=== PATIENT | male | born 1975 | race American Indian/Alaskan Native ===

== ENCOUNTER → 2016-05-27 | Outpatient (CLI) | payer BC ==
[~2016-05-27] MED LIST: /CELE20CA PO; BUPIVACAINE HCL 0.25% 10 ML VIAL As Ordered ONE; BUPIVACAINE HCL 0.25% 30 ML VIAL As Ordered ONE; CHAN0.5P6 PO; CHAN1PAK11 PO; ETOD40ERTA PO; EXAL8TAB PO; FENT25PA TD; FLEX10TA2 PO; FLEXARIL PO; GABA300C2 PO; HYDR5TAB23 PO; IBUP80TA PO; LYRI75CA PO; MORP-38 PO; MORP15TA2 PO; MULTCAP11 PO; MULTTAB6 PO; NAPR500T2 PO; NEXI40CA PO; PERC7.5T12 PO; PRIL40CA PO; ROBA750T4 PO; SOMA350T PO; TIZA2CAP3 PO; TRIAMCINOLONE ACETONIDE SUSP 40 MG/ML VIAL (J3301) As Ordered ONE; VITA-121 PO; VITA50003 PO; VOLT1GEL2 TD; ZANA4CAP PO; diazePAM 5 MG TAB As Ordered ONE; hydroxycut PO; oxycodone IR PO
--- NOTE | 2016-06-04 02:04 | ECWPNPC ---
PATIENT NAME: JOSUE MARTINEZ : 1975 GENDER: MALE VISIT DATE: 05/27/2016 DISCHARGE DATE: 05/27/16 1647 VISIT LOCKED DATE TIME: PHYSICIAN: DREW AGUILAR RESOURCE: DREW AGUILAR REASON FOR APPOINTMENT 1. TPI HISTORY OF PRESENT ILLNESS HISTORY OF PRESENT ILLNESS: PAIN THE PATIENT DESCRIBES THE PAIN... FALL RISK SCREENING: SCREENING :NO FALLS IN THE PAST YEAR CURRENT MEDICATIONS TAKING MENS MULTIVITAMIN PLUS TABLET 1 TAB ORALLY DAILY, NOTES: 05-26-16899 TAKING VOLTAREN 1 % GEL 1 TAB(S) EXTERNALLY DAILY, NEEDED, NOTES: 899 TAKING REMICADE 100 MG SOLUTION RECONSTITUTED INTRAVENOUS EVERY 8 WEEKS, NOTES: 04-21-2016 TAKING AIRBORNE TABLET EFFERVESCENT ORALLY ONCE DAILY, NOTES: 05-26-2016 TAKING DEXILANT 60 MG CAPSULE DELAYED RELEASE 1 CAPSULE ORALLY ONCE A DAY, NOTES: 05-25-20162099 TAKING DRISDOL [id number] CAPSULE 1 CAP(S) ORALLY EVERY OTHER WEEK, NOTES: 05-15-162099 TAKING FERROUS SULFATE 325 (65 FE) MG TABLET 1 TABLET ORALLY ONCE A DAY, NOTES: 05-26-2016899 TAKING BENADRYL ALLERGY 25 MG TABLET 1 TABLET ORALLY EVERY 6 HRS NEEDED, NOTES: 05-06-20162099 TAKING MIRALAX - PACKET 1 PACKET MIXED WITH 8 OUNCES OF FLUID ORALLY ONCE A DAY, NOTES: 05-12-20162099 TAKING SOMA 350 MG TABLET 1 TABLET NEEDED ORALLY BEFORE BEDTIME MDD=1, NOTES: 05-26-2016899 TAKING CAPSAICIN 0.1 % CREAM 1 APPLICATION TO AFFECTED AREA NEEDED EXTERNALLY THREE TIMES A DAY TAKING PROZAC 20 MG CAPSULE 1 CAPSULE IN THE MORNING ORALLY ONCE A DAY, NOTES: 05-25-2016899 TAKING VITAMIN D (ERGOCALCIFEROL) 02668 CAPSULE TAKE 1 CAPSULE BY MOUTH EVERY OTHER WEEK TAKING MORPHINE SULFATE 15 MG TABLET 1-2 TABLET ORALLY EVERY 4 -6 HRS PRN PAIN MDD=4, NOTES: 05-26-20162099 MEDICATION LIST REVIEWED AND RECONCILED WITH THE PATIENT PAST MEDICAL HISTORY CHRONIC LOW BACK PAIN (INJURED AT WORK) - SUMMER 2009 GERD, 03/05 EGD IRREG Z LINE, REINDL VIT D DEF FE DEF ANEMIA FORMER SMOKER, QUIT 01/02, SMOKED 18 Y, 1/2 PPD ANKYLOSING SPONDYLITIS - DR SOUZA DX 03/05 02/03 CT CHEST 8.5 MM CAVITARY LESION(LIKELY ABSCESS) 04/05 - PER PULM NO FURTHER IMAGING REQUIRED ALLERGIES N.K.D.A. REVIEW OF SYSTEMS CONSTITUTIONAL: ANY CHANGE IN YOUR MEDICAL CONDITION? NO . CHILLS NO . FEVER NO . INFECTION: DO YOU HAVE NEW INFECTIONS? NO . DO YOU HAVE HISTORY OF MRSA? NO . MUSCULOSKELETAL: ANY NEW PATTERNS OF PAIN OR NUMBNESS? NO . GASTROENTEROLOGY: ANY NEW CHANGE IN BOWEL CONTROL? NO . GENITOURINARY: ANY NEW CHANGE IN BLADDER CONTROL? NO . IS THERE A CHANCE YOU COULD BE ? NO . HEMATOLOGY/LYMPH: DO YOU TAKE ANY BLOOD THINNERS? (FOR EXAMPLE- COUMADIN, PLAVIX, AGGRENOX, PLATEL, PRADAXA, OR XARELTO) NO . WHEN WAS YOUR LAST DOSE? DATE: TIME: . NEUROLOGY: HAVE YOU FALLEN IN THE PAST 6 MONTHS? NO . ANY NEW EXTREMITY NUMBNESS OR WEAKNESS? NO . CARDIOLOGY: DO YOU HAVE A PACEMAKER OR DEFIBRILLATOR? NO . RESPIRATORY: HAVE YOU BEEN SICK IN THE PAST WEEK? NO . FEVER NO . FLU LIKE SYMPTOMS? NO . COUGH NO . INTEGUMENTARY: DO YOU HAVE ANY RASHES OR OPEN SORES? NO . ALLERGIC/IMMUNO: ARE YOU ALLERGIC TO SHELLFISH OR IV DYE? NO . ANY NEW ALLERGIES? NO . PSYCHIATRIC: DO YOU HAVE THOUGHTS OF HURTING YOURSELF OR SOMEONE ELSE? NO . ARE YOU ABUSED, NEGLECTED, OR IN AN UNSAFE ENVIRONMENT? NO . ENDOCRINOLOGY: ARE YOU DIABETIC? NO . OTHER: DO YOU NEED ANY PRESCRIPTIONS? NO . IF YES, PLEASE LIST: ____ . ANY NEW PROBLEMS WITH YOUR MEDICATIONS? NO . WHEN DID YOU LAST EAT? 0220 . WHEN DID YOU LAST DRINK? 1200 . WHAT DID YOU LAST DRINK? BLACK COFFEE . NAME OF PERSON DRIVING YOU HOME? - SONALI MARTINEZ . DO YOU HAVE ANY OTHER QUESTIONS OR CONCERNS NO . REVIEWED BY: PROVIDER: . VITAL SIGNS WT 172 LBS, HT 62 IN, BMI 31.46 INDEX, BP 131/60 MM HG, HR 66 /MIN, RR 16 /MIN, TEMP 97.2 F, OXYGEN SAT % 96, NA INITIALS TL 1452, REVIEWED BY: KG. ASSESSMENTS MYALGIA - M79.1 (PRIMARY) PROCEDURES PN TRIGGER POINT INJECTION WITH STEROIDS PRE PROCEDURE DIAGNOSIS 1. MYALGIA 2. PAIN AT BILATERAL NECK AREA AND LEFT LOW BACK AREA. POST PROCEDURE DIAGNOSIS 1. MYALGIA 2. PAIN AT BILATERAL NECK AREA AND LEFT LOW BACK AREA. PROCEDURE TRIGGER POINT INJECTION AT BILATERAL NECK AREA AND LEFT LOW BACK AREA. SURGEON DR. DREW AGUILAR HAND PROFILER NONE ANESTHESIA LOCAL PRE PROCEDURE NOTE THE PATIENT HAS A HISTORY OF CHRONIC PAIN AT THE RIGHT AND LEFT NECK AREA AND LEFT LOW BACK AREA. I EVALUATE THE PATIENT AND REVIEWED THE CHART. THERE IS EVIDENCE OF BANDS OF TISSUE WITH RESTRICTION OF MOVEMENT AND PRESENCE OF TRIGGER POINT AT THE AFFECTED AREA. I WENT OVER THE RISKS, ALTERNATIVES, AND BENEFITS ASSOCIATED WITH THIS PROCEDURE. THE PATIENT WOULD LIKE TO PROCEED AND GIVE CONSENT TO PERFORMED THE PROCEDURE. THE PATIENT DENIES UNEXPLAINABLE WEIGHT LOSS, FEVER, CHILLS, OR NEW CHANGES IN URINARY OR BOWEL CONTROL DESCRIPTION OF PROCEDURE THE PATIENT WAS BROUGHT TO THE PROCEDURE ROOM AND PLACED IN THE SITTING POSITION. THE AREA WAS CLEANED WITH ALCOHOL. THE PROCEDURE WAS DONE USING ASEPTIC STERILE TECHNIQUE. I CHECKED LATERALITY AND THE LEVEL WHERE THE PROCEDURE WAS GOING TO BE PERFORMED WITH THE PATIENT AND THE SUPPORTING STAFF AT THE MOMENT OF THE TIME OUT IN THE PROCEDURE ROOM. USING A 25-GAUGE NEEDLE, TRIGGER POINTS WERE INJECTED AT THE RIGHT AND LEFT NECK AREA AND LEFT LOW BACK AREA WITH A TOTAL OF 40 ML OF BUPIVACAINE 0.25% AND KENALOG 40 MG. THERE WAS NO EVIDENCE OF BLOOD, PARESTHESIA OR CEREBROSPINAL FLUID DURING THE PROCEDURE. THE PATIENT WAS SENT TO THE RECOVERY ROOM. THE PATIENT WAS MOVING THE EXTREMITIES AND DOING WELL. THERE WAS NO COMPLICATION DURING THE PROCEDURE POST PROCEDURE NOTE THE PATIENT WILL BE SEEN IN A FOLLOW UP IN THE NEXT FEW WEEKS. INSTRUCTIONS WERE GIVEN, QUESTIONS WERE ANSWERED, AND THE PATIENT EXPRESSED UNDERSTANDING AND AGREES WITH THE PLAN. PROCEDURE CODES 37647 INJECT TRIGGER POINTS, =/> 3 FOLLOW UP 3 WEEKS ELECTRONICALLY SIGNED BY DREW AGUILAR MD ON 06/03/2016 AT 03:25 PM EST DISCLAIMER : THIS IS A VISIT SUMMARY EXTRACTED FROM THE [employer] CHART. IT IS NOT A COPY OF THE [employer] PROGRESS NOTE. JANEL
== END ==
LOC: M PAIN 14:40
PROVIDERS: ATTEND Anesthesiology
DX: G89.21 Chronic pain due to trauma (principal); M79.1 Myalgia; M54.2 Cervicalgia; M54.5 Low back pain; K21.9 Gastro-esophageal reflux disease without esophagitis; E55.9 Vitamin D deficiency, unspecified; D50.9 Iron deficiency anemia, unspecified; M45.9 Ankylosing spondylitis of unspecified sites in spine; Z79.891 Long term (current) use of opiate analgesic; Z79.899 Other long term (current) drug therapy; Z87.891 Personal history of nicotine dependence
CPT/HCPCS: 20553; J3301

== ENCOUNTER → 2016-06-10 | Outpatient (CLI) | payer BC ==
[~2016-06-10] MED LIST changes: -BUPIVACAINE HCL 0.25% 10 ML VIAL As Ordered ONE; -BUPIVACAINE HCL 0.25% 30 ML VIAL As Ordered ONE; -TRIAMCINOLONE ACETONIDE SUSP 40 MG/ML VIAL (J3301) As Ordered ONE; -diazePAM 5 MG TAB As Ordered ONE
== END ==
LOC: M PAIN 11:00
PROVIDERS: ATTEND Nurse Practitioner Family
DX: M79.1 Myalgia (principal); M45.9 Ankylosing spondylitis of unspecified sites in spine; G89.29 Other chronic pain; Z79.891 Long term (current) use of opiate analgesic; Z79.899 Other long term (current) drug therapy; Z87.891 Personal history of nicotine dependence

== ENCOUNTER 2016-07-18 13:00 | Outpatient (RCR) | payer BC | END 2016-07-19 | LOC: M PT 13:00 | PROVIDERS: ATTEND Physician Assistant | DX: Z51.89 Encounter for other specified aftercare (principal); M54.12 Radiculopathy, cervical region; M54.9 Dorsalgia, unspecified ==

== ENCOUNTER → 2016-07-19 | Outpatient (CLI) | payer BC ==
--- NOTE | 2016-07-20 01:15 | ECWPNPC ---
PATIENT NAME: JOSUE MARTINEZ : 1975 GENDER: MALE VISIT DATE: 07/19/2016 DISCHARGE DATE: 07/19/16 1007 VISIT LOCKED DATE TIME: PHYSICIAN: TOM SALINAS RESOURCE: TOM SALINAS REASON FOR APPOINTMENT 1. NECK AND LOW BACK HISTORY OF PRESENT ILLNESS HISTORY OF PRESENT ILLNESS: PAIN THE PATIENT DESCRIBES THE PAIN... FALL RISK SCREENING: SCREENING :NO FALLS IN THE PAST YEAR TODAY'S VISIT: NOTES: RATES PAIN TODAY 6/10. PAIN IS CENTERD AT BASE OF NECK, PAIN IS CENTERED AT NECK AND LEFT LOW BACK. HAS BEEN DOING PT FOR NECK WHICH IS IMPROVING ROM BUT STILL HAS PAIN. . CURRENT MEDICATIONS TAKING MENS MULTIVITAMIN PLUS TABLET 1 TAB ORALLY DAILY TAKING VOLTAREN 1 % GEL 1 TAB(S) EXTERNALLY DAILY, NEEDED TAKING REMICADE 100 MG SOLUTION RECONSTITUTED INTRAVENOUS EVERY 8 WEEKS TAKING AIRBORNE TABLET EFFERVESCENT ORALLY ONCE DAILY TAKING DEXILANT 60 MG CAPSULE DELAYED RELEASE 1 CAPSULE ORALLY ONCE A DAY TAKING FERROUS SULFATE 325 (65 FE) MG TABLET 1 TABLET ORALLY ONCE A DAY TAKING BENADRYL ALLERGY 25 MG TABLET 1 TABLET ORALLY EVERY 6 HRS NEEDED TAKING MIRALAX - PACKET 1 PACKET MIXED WITH 8 OUNCES OF FLUID ORALLY ONCE A DAY TAKING CAPSAICIN 0.1 % CREAM 1 APPLICATION TO AFFECTED AREA NEEDED EXTERNALLY THREE TIMES A DAY TAKING VITAMIN D (ERGOCALCIFEROL) 73400 CAPSULE TAKE 1 CAPSULE BY MOUTH EVERY OTHER WEEK TAKING PROZAC 20 MG CAPSULE 2 CAPSULE IN THE MORNING ORALLY ONCE A DAY TAKING SOMA 350 MG TABLET 1 TABLET NEEDED ORALLY BEFORE BEDTIME MDD=1 TAKING MORPHINE SULFATE 15 MG TABLET 1-2 TABLET ORALLY EVERY 4 -6 HRS PRN PAIN MDD=4 TAKING ZANTAC 150 MG TABLET 1 TABLET AT BEDTIME ORALLY ONCE A DAY TAKING COLACE 100 MG CAPSULE 1 CAPSULE NEEDED ORALLY TWICE A DAY NOT-TAKING DRISDOL [id number] CAPSULE 1 CAP(S) ORALLY EVERY OTHER WEEK MEDICATION LIST REVIEWED AND RECONCILED WITH THE PATIENT PAST MEDICAL HISTORY CHRONIC LOW BACK PAIN (INJURED AT WORK) - SUMMER 2009 GERD, 03/05 EGD IRREG Z LINE, REINDL VIT D DEF FE DEF ANEMIA FORMER SMOKER, QUIT 01/02, SMOKED 18 Y, 1/2 PPD ANKYLOSING SPONDYLITIS - DR SOUZA DX 03/05 02/03 CT CHEST 8.5 MM CAVITARY LESION(LIKELY ABSCESS) 04/05 - PER PULM NO FURTHER IMAGING REQUIRED ALLERGIES N.K.D.A. SOCIAL HISTORY GENERAL: TOBACCO USE ARE YOU A:NONSMOKER LEARNING BARRIERS / SPECIAL NEEDS ORIENTED TO PLAN OF CARE: PATIENT, PAIN MANAGEMENT PATIENT, ORIENTED TO PLAN OF CARE: PATIENT, PAIN MANAGEMENT PATIENT. NEW PATIENT PAIN DIARY TODAY'S VISITNOTES FROM 0-10, WHAT LEVEL IS YOUR PAIN TODAY?0 PAIN CLINIC PFS, CLERGY, PUBLIC HEALTH REFERRALS PFS REFERRAL NEEDED?NO CLERGY REFERRAL NEEDED?NO PUBLIC HEALTH REFERRAL NEEDED?NO WAS THE PROVIDER NOTIFIED OF ANY PERTINENT INFO?NO PFS REFERRAL NEEDED?NO CLERGY REFERRAL NEEDED?NO PUBLIC HEALTH REFERRAL NEEDED?NO WAS THE PROVIDER NOTIFIED OF ANY PERTINENT INFO?NO REVIEW OF SYSTEMS CONSTITUTIONAL: ANY CHANGE IN YOUR MEDICAL CONDITION? NO . CHILLS NO . FEVER NO . INFECTION: DO YOU HAVE NEW INFECTIONS? NO . DO YOU HAVE HISTORY OF MRSA? NO . MUSCULOSKELETAL: ANY NEW PATTERNS OF PAIN OR NUMBNESS? NO . GASTROENTEROLOGY: ANY NEW CHANGE IN BOWEL CONTROL? NO . GENITOURINARY: ANY NEW CHANGE IN BLADDER CONTROL? NO . IS THERE A CHANCE YOU COULD BE ? NO . HEMATOLOGY/LYMPH: DO YOU TAKE ANY BLOOD THINNERS? (FOR EXAMPLE- COUMADIN, PLAVIX, AGGRENOX, PLATEL, PRADAXA, OR XARELTO) NO . WHEN WAS YOUR LAST DOSE? DATE: TIME: . NEUROLOGY: HAVE YOU FALLEN IN THE PAST 6 MONTHS? NO . ANY NEW EXTREMITY NUMBNESS OR WEAKNESS? NO . CARDIOLOGY: DO YOU HAVE A PACEMAKER OR DEFIBRILLATOR? NO . RESPIRATORY: HAVE YOU BEEN SICK IN THE PAST WEEK? NO . FEVER NO . FLU LIKE SYMPTOMS? NO . COUGH NO . INTEGUMENTARY: DO YOU HAVE ANY RASHES OR OPEN SORES? NO . ALLERGIC/IMMUNO: ARE YOU ALLERGIC TO SHELLFISH OR IV DYE? NO . ANY NEW ALLERGIES? NO . PSYCHIATRIC: DO YOU HAVE THOUGHTS OF HURTING YOURSELF OR SOMEONE ELSE? NO . ARE YOU ABUSED, NEGLECTED, OR IN AN UNSAFE ENVIRONMENT? NO . ENDOCRINOLOGY: ARE YOU DIABETIC? NO . OTHER: DO YOU NEED ANY PRESCRIPTIONS? YES . IF YES, PLEASE LIST: MORPHINE 15 MG . ANY NEW PROBLEMS WITH YOUR MEDICATIONS? NO . WHEN DID YOU LAST EAT? ____ . WHEN DID YOU LAST DRINK? ____ . WHAT DID YOU LAST DRINK? ____ . NAME OF PERSON DRIVING YOU HOME? ____ . DO YOU HAVE ANY OTHER QUESTIONS OR CONCERNS NO . REVIEWED BY: PROVIDER: TOM JOLLY . VITAL SIGNS WT 165.6 LBS, HT 62 IN, BMI 30.29 INDEX, BP 146/87 MM HG, HR 62 /MIN, RR 16 /MIN, TEMP 96.8 F, OXYGEN SAT % 97, NA INITIALS TL 0908, REVIEWED BY: CS. EXAMINATION GENERAL EXAMINATION: GENERAL APPEARANCE:NO ACUTE DISTRESS, WELL NOURISHED AND HYDRATED, PLEASANT. LUNGS:CLEAR TO AUSCULTATION BILATERALLY, NO WHEEZES, RHONCHI, RALES. HEART:NO MURMURS, REGULAR RATE AND RHYTHM. MUSCULOSKELETAL:HEAD IN HEAD-FORWARD POSITION. POINT TENDERNESS OVER CERICAL PARAVEREBRAL MUSCLES. NECK STIFF, PAIN WITH NECK EXTENSION, ROTATION. , TRIGGER POINTS AND TIGHTFIBROUS BANDS NOTED L>R AT CERVICAL THORACIC JUNCTION. FOOD SERVICES COORDINATOR STRENGTH EQUAL AND STRONG. : CER. ASSESSMENTS MYALGIA - M79.1 (PRIMARY) FACET ARTHROPATHY, CERVICAL - M12.88 ANKYLOSING SPONDYLITIS - M45.9 CHRONIC PRESCRIPTION OPIATE USE - Z79.891 TREATMENT MYALGIA CERVICAL FACET JOINT TOM GREENWOOD 07/19/2016 9:52:27 AM > BILATERAL THERAPEUTIC NOTES: CONTINUE PT, STRETCHES AND EXERCISES. CONTINUE CURRENT MEDS,FACET JOINT INJECTION MATERIAL WAS PRINTED,FACET JOINT INJECTION: YOUR EXPERIENCE MATERIAL WAS PRINTED. CLINICAL NOTES: ISTOP REGISTRY REVIEWED AND DEMNOSTRATES COMPLLIANCE. BRINGS IN MEDICATIONS WHICH IS APPROPRIATE FOR WHAT WAS DISPENSED. RECENT URINE TOXICOLOGY REVIEWED. NO UNAUTHORIZED MEDICATIONS. NO ILLICIT SUBSTANCES AND PRESCRIBED MEDICATIONS WERE PRESENT. PROCEDURE CODES FA211 ESTABILISHED PATIENT [facility] CHARGE DISPOSITION & COMMUNICATION FOLLOW UP SCHEDULE INJECTION ABOUT 08/02 (ON REMICADE) (REASON: CHECK AUTH FOR CERVICAL FACET BLOCK BILATERAL THERAPEUTIC) ELECTRONICALLY SIGNED BY ILIA REAGAN ON 07/19/2016 AT 10:53 AM EST DISCLAIMER : THIS IS A VISIT SUMMARY EXTRACTED FROM THE [employer] CHART. IT IS NOT A COPY OF THE [employer] PROGRESS NOTE. JANEL
== END ==
LOC: M PAIN 09:00
PROVIDERS: ATTEND Nurse Practitioner Family
DX: Z09 Encounter for follow-up examination after completed treatment for conditions other than malignant neoplasm (principal); G89.29 Other chronic pain; M79.1 Myalgia; M12.88 Other specific arthropathies, not elsewhere classified, other specified site; M45.9 Ankylosing spondylitis of unspecified sites in spine; M54.5 Low back pain; K21.9 Gastro-esophageal reflux disease without esophagitis; E55.9 Vitamin D deficiency, unspecified; D50.9 Iron deficiency anemia, unspecified; Z79.891 Long term (current) use of opiate analgesic; Z79.899 Other long term (current) drug therapy; Z87.891 Personal history of nicotine dependence

== ENCOUNTER 2016-08-17 07:29 | Outpatient (RCR) | payer BC | END 2016-08-19 | LOC: M PT 07:29 | PROVIDERS: ATTEND Physician Assistant | DX: Z51.89 Encounter for other specified aftercare (principal); M54.12 Radiculopathy, cervical region ==

== ENCOUNTER → 2016-09-27 | Outpatient (CLI) | payer BC ==
[~2016-09-27] MED LIST changes: +AIRB1TAB PO; +BUPIVACAINE HCL 0.25% 30 ML VIAL As Ordered ONE; +CARI350T20 PO; +COLA50CA5 PO; +DEXI60CA PO; +FLUO20CA9 PO; +INFL10VL IV; +IRON65TA PO; +ISOVUE-M 300 61% 15ML VIAL (Q9967) As Ordered ONE; +LIDOCAINE 1% SDV INJ 30 ML VIAL As Ordered ONE; +META800T82 PO; +MIRA33504 PO; +QUET1TAB8 PO; +RANI300T PO; +TRAZ100T4 PO; +TRIAMCINOLONE ACETONIDE SUSP 40 MG/ML VIAL (J3301) As Ordered ONE; +VITA10006 PO; +VOLT1GEL24 TD; +diazePAM 5 MG TAB As Ordered ONE; +oxyCODONE 5MG TAB As Ordered ONE
--- NOTE | 2016-09-27 16:07 | REP ---
Partial cervical spine series: Single view: History: Facet block for pain. 15 seconds of fluoroscopy time is reported. Findings: A sequence of two fluoroscopically obtained intraprocedural spot radiographs of the cervical spine document various needle positions and contrast injections associated with facet injection procedure. Signed by Raghav Ludwig MD 09/27/2016 04:41 P
--- NOTE | 2016-10-04 02:59 | ECWPNPC ---
PATIENT NAME: JOSUE MARTINEZ : 1975 GENDER: MALE VISIT DATE: 09/27/2016 DISCHARGE DATE: 09/27/16 1031 VISIT LOCKED DATE TIME: PHYSICIAN: DREW AGUILAR RESOURCE: DREW AGUILAR REASON FOR APPOINTMENT 1. CE- BILATERAL HISTORY OF PRESENT ILLNESS HISTORY OF PRESENT ILLNESS: PAIN THE PATIENT DESCRIBES THE PAIN... FALL RISK SCREENING: SCREENING :NO FALLS IN THE PAST YEAR CURRENT MEDICATIONS TAKING MENS MULTIVITAMIN PLUS TABLET 1 TAB ORALLY DAILY, NOTES: 09-26-16799 TAKING VOLTAREN 1 % GEL 1 TAB(S) EXTERNALLY DAILY, NEEDED, NOTES: NONE RECENT TAKING REMICADE 100 MG SOLUTION RECONSTITUTED INTRAVENOUS EVERY 8 WEEKS, NOTES: JULY 2016 TAKING AIRBORNE TABLET EFFERVESCENT ORALLY ONCE DAILY, NOTES: 09-26-169799 TAKING DEXILANT 60 MG CAPSULE DELAYED RELEASE 1 CAPSULE ORALLY ONCE A DAY, NOTES: 09-26-16799 TAKING FERROUS SULFATE 325 (65 FE) MG TABLET 1 TABLET ORALLY ONCE A DAY, NOTES: 09-26-16799 TAKING BENADRYL ALLERGY 25 MG TABLET 1 TABLET ORALLY EVERY 6 HRS NEEDED, NOTES: NONE TAKING MIRALAX - PACKET 1 PACKET MIXED WITH 8 OUNCES OF FLUID ORALLY ONCE A DAY, NOTES: 09-25-16 TAKING CAPSAICIN 0.1 % CREAM 1 APPLICATION TO AFFECTED AREA NEEDED EXTERNALLY THREE TIMES A DAY, NOTES: NONE RECENT TAKING ZANTAC 150 MG TABLET 1 TABLET AT BEDTIME ORALLY ONCE A DAY, NOTES: 09-26-162099 TAKING COLACE 100 MG CAPSULE 1 CAPSULE NEEDED ORALLY TWICE A DAY, NOTES: 09-26-162099 TAKING PROZAC 20 MG CAPSULE 3 CAPSULE IN THE MORNING ORALLY ONCE A DAY, NOTES: 09-27-16 07 TAKING VITAMIN D (ERGOCALCIFEROL) 28916 CAPSULE 1 CAPSULE ORALLY WEEKLY, NOTES: DUE TODAY TAKING SOMA 350 MG TABLET 1 TABLET NEEDED ORALLY BEFORE BEDTIME MDD=1, NOTES: NONE RECENT TAKING MORPHINE SULFATE 15 MG TABLET 1-2 TABLET ORALLY EVERY 4 -6 HRS PRN PAIN MDD=4, NOTES: 09-26-162099 TAKING TRAZODONE HCL 150 MG TABLET 1 TABLET AT BEDTIME NEEDED ORALLY ONCE A DAY, NOTES: 09-26-162099 DISCONTINUED DRISDOL [id number] CAPSULE 1 CAP(S) ORALLY EVERY OTHER WEEK MEDICATION LIST REVIEWED AND RECONCILED WITH THE PATIENT PAST MEDICAL HISTORY CHRONIC LOW BACK PAIN (INJURED AT WORK) - SUMMER 2009 GERD, 03/05 EGD IRREG Z LINE, REINDL VIT D DEF FE DEF ANEMIA FORMER SMOKER, QUIT 01/02, SMOKED 18 Y, 1/2 PPD ANKYLOSING SPONDYLITIS - DR SOUZA DX 03/05 02/03 CT CHEST 8.5 MM CAVITARY LESION(LIKELY ABSCESS) 04/05 - PER PULM NO FURTHER IMAGING REQUIRED ALLERGIES N.K.D.A. REVIEW OF SYSTEMS CONSTITUTIONAL: ANY CHANGE IN YOUR MEDICAL CONDITION? NO . CHILLS NO . FEVER NO . INFECTION: DO YOU HAVE NEW INFECTIONS? NO . DO YOU HAVE HISTORY OF MRSA? NO . MUSCULOSKELETAL: ANY NEW PATTERNS OF PAIN OR NUMBNESS? NO . GASTROENTEROLOGY: ANY NEW CHANGE IN BOWEL CONTROL? NO . GENITOURINARY: ANY NEW CHANGE IN BLADDER CONTROL? NO . IS THERE A CHANCE YOU COULD BE ? NO . HEMATOLOGY/LYMPH: DO YOU TAKE ANY BLOOD THINNERS? (FOR EXAMPLE- COUMADIN, PLAVIX, AGGRENOX, PLATEL, PRADAXA, OR XARELTO) NO . WHEN WAS YOUR LAST DOSE? DATE: TIME: . NEUROLOGY: HAVE YOU FALLEN IN THE PAST 6 MONTHS? NO . ANY NEW EXTREMITY NUMBNESS OR WEAKNESS? NO . CARDIOLOGY: DO YOU HAVE A PACEMAKER OR DEFIBRILLATOR? NO . RESPIRATORY: HAVE YOU BEEN SICK IN THE PAST WEEK? NO . FEVER NO . FLU LIKE SYMPTOMS? NO . COUGH NO . INTEGUMENTARY: DO YOU HAVE ANY RASHES OR OPEN SORES? NO . ALLERGIC/IMMUNO: ARE YOU ALLERGIC TO SHELLFISH OR IV DYE? NO . ANY NEW ALLERGIES? NO . PSYCHIATRIC: DO YOU HAVE THOUGHTS OF HURTING YOURSELF OR SOMEONE ELSE? NO . ARE YOU ABUSED, NEGLECTED, OR IN AN UNSAFE ENVIRONMENT? NO . ENDOCRINOLOGY: ARE YOU DIABETIC? NO . OTHER: DO YOU NEED ANY PRESCRIPTIONS? NO . IF YES, PLEASE LIST: ____ . ANY NEW PROBLEMS WITH YOUR MEDICATIONS? NO . WHEN DID YOU LAST EAT? 09-27-16 0140 . WHEN DID YOU LAST DRINK? 09-27-16 0430 . WHAT DID YOU LAST DRINK? WATER . NAME OF PERSON DRIVING YOU HOME? SONALI . DO YOU HAVE ANY OTHER QUESTIONS OR CONCERNS NO . REVIEWED BY: PROVIDER: . VITAL SIGNS WT 168 LBS, HT 62 IN, BMI 30.72 INDEX, BP 111/59 MM HG, HR 66 /MIN, RR 16 /MIN, TEMP 97.9 F, OXYGEN SAT % 96%, NA INITIALS SC09:06, REVIEWED BY: CM. ASSESSMENTS SPONDYLOSIS WITHOUT MYELOPATHY OR RADICULOPATHY, CERVICAL REGION - M47.812 (PRIMARY) PROCEDURES PN CERVICAL FACET BLOCK LOW BILATERAL CERVICAL PRE PROCEDURE DIAGNOSIS CERVICAL SPONDYLOSIS POST PROCEDURE DIAGNOSIS CERVICAL SPONDYLOSIS PROCEDURE BILATERAL C4-C5 AND C6-C7 CERVICAL FACET BLOCK SURGEON DR. DREW AGUILAR REPORTING PROCESS CONSULTANT NONE ANESTHESIA LOCAL PRE PROCEDURE NOTE THE PATIENT HAS HISTORY OF CHRONIC CERVICAL PAIN. I EVALUATE THE PATIENT AND REVIEWED THE CHART. I WENT OVER THE RISKS, ALTERNATIVES, AND BENEFITS ASSOCIATED WITH THIS PROCEDURE. THE PATIENT WOULD LIKE TO PROCEED AND GIVE CONSENT TO PERFORMED THE PROCEDURE. THE PATIENT DENIES UNEXPLAINABLE WEIGHT LOSS, FEVER, CHILLS, OR NEW CHANGES IN URINARY OR BOWEL CONTROL. DESCRIPTION OF PROCEDURE THE PATIENT WAS BROUGHT TO THE PROCEDURE ROOM AND PLACED IN THE PRONE POSITION. THE CERVICOTHORACIC AREA WAS CLEANED WITH CHLORAPREP SOLUTION AND DRAPED ASEPTICALLY. THE PROCEDURE WAS DONE UNDER STERILE CONDITIONS. I CHECKED LATERALITY AND THE LEVEL WHERE THE PROCEDURE WAS GOING TO BE PERFORMED WITH THE PATIENT AND THE SUPPORTING STAFF AT THE MOMENT OF THE TIME OUT IN THE PROCEDURE ROOM. UNDER FLUOROSCOPIC GUIDANCE, TARGET POINT WAS SELECTED AT THE RIGHT AND LEFT C4-C5 AND RIGHT AND LEFT C6-C7 CERVICAL FACET JOINT. TARGET POINTS WERE SELECTED AFTER LATERAL ROTATION AND TILT OF THE MAGNIFIER OF THE C-ARM. LIDOCAINE 0.5% WAS USED TO NUMB THE SKIN AND THE SUBCUTANEOUS TISSUE BELOW IT. SPINAL NEEDLES, 22-GAUGE, WERE ADVANCED UNDER FLUOROSCOPIC GUIDANCE AND FOLLOWING PATIENT FEEDBACK UNTIL THE TARGETS WERE TOUCHED. THE POSITION OF THE NEEDLES WAS VERIFIED WITH AP AND LATERAL VIEWS. AFTER PROPER POSITION OF THE NEEDLES WAS ACHIEVED, ISOVUE M DYE 30, 0.1 ML WAS INJECTED SHOWING SPREAD OF THE DYE. THEN A SOLUTION OF 0.9 ML OF BUPIVACAINE 0.125% AND KENALOG 10 MG WAS INJECTED AT EACH SITE. THERE WAS NO EVIDENCE OF BLOOD, PARESTHESIA OR CEREBROSPINAL FLUID DURING THE PROCEDURE. THE PATIENT WAS SENT TO THE RECOVERY ROOM. THE PATIENT WAS MOVING THE EXTREMITIES AND DOING WELL. THERE WAS NO COMPLICATION DURING THE PROCEDURE. FLUOROSCOPY TIME WAS 15 SECONDS POST PROCEDURE NOTE THE PATIENT WILL BE SEEN IN A FOLLOW UP IN THE NEXT FEW WEEKS. INSTRUCTIONS WERE GIVEN, QUESTIONS WERE ANSWERED, AND THE PATIENT EXPRESSED UNDERSTANDING AND AGREES WITH THE PLAN. I, KAMI NARVAEZ, DOCUMENTED THE ABOVE INFORMATION ACTING A SCRIBE FOR DR. AGUILAR. I HAVE REVIEWED THE ABOVE DOCUMENT, WRITTEN BY KAMI NARVAEZ SCRIBE AND I VERIFY THAT IT IS ACCURATE. DIAGNOSTIC IMAGING [facility] FACET BLOCK (PAIN)[id number] PROCEDURE CODES 36560 INJ PARAVERT F JNT C/T 1 LEV 71697 INJ PARAVERT F JNT C/T 2 LEV 6045F RADXPS IN END [id number] PXD DISPOSITION & COMMUNICATION FOLLOW UP 3 WEEKS ELECTRONICALLY SIGNED BY DREW AGUILAR MD ON 10/03/2016 AT 11:05 AM EDT DISCLAIMER : THIS IS A VISIT SUMMARY EXTRACTED FROM THE [employer] CHART. IT IS NOT A COPY OF THE [employer] PROGRESS NOTE. MTDD
== END ==
LOC: M PAIN 08:40
PROVIDERS: ATTEND Anesthesiology
DX: M47.812 Spondylosis without myelopathy or radiculopathy, cervical region (principal); M54.5 Low back pain; Z79.899 Other long term (current) drug therapy; M45.0 Ankylosing spondylitis of multiple sites in spine; D50.9 Iron deficiency anemia, unspecified; E55.9 Vitamin D deficiency, unspecified; K21.9 Gastro-esophageal reflux disease without esophagitis; Z87.891 Personal history of nicotine dependence
CPT/HCPCS: 64490; 64491; J3301; Q9967

== ENCOUNTER → 2016-10-01 | Outpatient (CLI) | payer BC ==
[~2016-10-01] MED LIST changes: -AIRB1TAB PO; -BUPIVACAINE HCL 0.25% 30 ML VIAL As Ordered ONE; -CARI350T20 PO; -COLA50CA5 PO; -DEXI60CA PO; -FLUO20CA9 PO; -INFL10VL IV; -IRON65TA PO; -ISOVUE-M 300 61% 15ML VIAL (Q9967) As Ordered ONE; -LIDOCAINE 1% SDV INJ 30 ML VIAL As Ordered ONE; -META800T82 PO; -MIRA33504 PO; -QUET1TAB8 PO; -RANI300T PO; -TRAZ100T4 PO; -TRIAMCINOLONE ACETONIDE SUSP 40 MG/ML VIAL (J3301) As Ordered ONE; -VITA10006 PO; -VOLT1GEL24 TD; -diazePAM 5 MG TAB As Ordered ONE; -oxyCODONE 5MG TAB As Ordered ONE
[2016-10-01 18:17] LABS: ALBUMIN 3.9 GM/DL (3.2-5.2); ALBUMIN/GLOBULIN RATIO 1.11 (1.00-1.93); ALKALINE PHOSPHATASE 99 U/L (45-117); ALT/SGPT 31 U/L (12-78); ANION GAP 8 MEQ/L (8-16); AST/SGOT 8 U/L (15-37); BILIRUBIN,TOTAL 0.3 MG/DL (0.2-1.0); BLOOD UREA NITROGEN 20 MG/DL (7-18); CALCIUM LEVEL 8.5 MG/DL (8.5-10.1); CARBON DIOXIDE LEVEL 28 MEQ/L (21-32); CHLORIDE LEVEL 102 MEQ/L (98-107); CREATININE FOR GFR 0.77 MG/DL (0.70-1.30); GLOMERULAR FILTRATION RATE > 60.0 (>60); GLUCOSE, FASTING 103 MG/DL (70-105); POTASSIUM SERUM 4.2 MEQ/L (3.5-5.1); SODIUM LEVEL 138 MEQ/L (136-145); TOTAL PROTEIN 7.4 GM/DL (6.4-8.2)
[2016-10-01 19:29] LABS: BASO # 0.1 K/mm3 (0.0-0.2); BASO % 0.7 % (0.0-1.0); EOS # 0.2 K/mm3 (0.0-0.50); EOS % 1.6 % (0.0-3.0); LARGE UNSTAINED CELL # 0.2 K/mm3 (0.0-0.4); LARGE UNSTAINED CELL % 2.4 % (0.0-4.0); LYMPH # 2.8 K/mm3 (1.5-4.5); LYMPH % 27.2 % (24.0-44.0); MEAN CORPUSCULAR HEMOGLOBIN 32.4 pg (27.0-33.0); MEAN CORPUSCULAR HGB CONC 34.1 g/dl (32.0-36.5); MEAN CORPUSCULAR VOLUME 95.1 fl (80.0-96.0); MONO # 0.7 K/mm3 (0.0-0.8); MONO % 6.5 % (0.0-5.0); NEUTROPHILS # 6.3 K/mm3 (1.8-7.7); NEUTROPHILS % 61.6 % (36.0-66.0); PLATELET COUNT, AUTOMATED 364 k/mm3 (150-450); RED CELL DISTRIBUTION WIDTH 12.8 % (11.5-14.5); WHITE BLOOD COUNT 10.3 K/mm3 (4.0-10.0)
== END ==
LOC: M WUC 14:21
PROVIDERS: ATTEND Physician Assistant Medical
DX: K92.0 Hematemesis (principal); R12 Heartburn

== ENCOUNTER → 2016-10-03 | Outpatient (CLI) | payer BC ==
[~2016-10-03] MED LIST changes: +E-Z-GAS II EFFERVESCENT PACKET (SODIUM BICARB./CITRIC ACID/SIMETHICONE) As Ordered ONE; +E-Z-HD 98% w/w 340GM SUSP BTL As Ordered ONE; +E-Z-PAQUE 96% w/w SUSP 176GM BTL As Ordered ONE
--- NOTE | 2016-10-03 17:15 | REP ---
Clinical: Heartburn and hematemesis. Technique: Double contrast upper GI examination using barium substrates. Findings: Procurement Cost Coordinator film of the abdomen suggests moderate fecal stasis. Skeletal structures demonstrate degenerative changes to the lumbar spine including bridging osteophytes. Double contrast evaluation of the esophagus demonstrates normal outline and peristalsis. No esophageal mucosal abnormalities are appreciated and there is no evidence for stricture or stenosis. A moderate hiatal hernia is appreciated with reproducible gastroesophageal reflux to the proximal third of the esophagus. The stomach and duodenum are incompletely evaluated due to excessive retained material. However, the gastric outline appears normal and the duodenum is unremarkable. Total fluoroscopic time 2 minutes 3 seconds. Impression: Moderate hiatal hernia with moderate reproducible gastroesophageal reflux disease. Signed by Chung Perez MD 10/03/2016 05:06 P
== END ==
LOC: M RAD 11:11
PROVIDERS: ATTEND Physician Assistant Medical
DX: K92.0 Hematemesis (principal); R12 Heartburn; K44.9 Diaphragmatic hernia without obstruction or gangrene

== ENCOUNTER → 2016-10-18 | Outpatient (CLI) | payer BC ==
[~2016-10-18] MED LIST changes: +AIRB1TAB PO; +CARI350T20 PO; +COLA50CA5 PO; +DEXI60CA PO; -E-Z-GAS II EFFERVESCENT PACKET (SODIUM BICARB./CITRIC ACID/SIMETHICONE) As Ordered ONE; -E-Z-HD 98% w/w 340GM SUSP BTL As Ordered ONE; -E-Z-PAQUE 96% w/w SUSP 176GM BTL As Ordered ONE; +FLUO20CA9 PO; +INFL10VL IV; +IRON65TA PO; +META800T82 PO; +MIRA33504 PO; +QUET1TAB8 PO; +RANI300T PO; +TRAZ100T4 PO; +VITA10006 PO; +VOLT1GEL24 TD
--- NOTE | 2016-11-06 23:58 | ECWPNPC ---
PATIENT NAME: JOSUE MARTINEZ : 1975 GENDER: MALE VISIT DATE: 10/18/2016 DISCHARGE DATE: 10/18/16 1037 VISIT LOCKED DATE TIME: PHYSICIAN: TOM SALINAS RESOURCE: TOM SALINAS REASON FOR APPOINTMENT 1. POST FACET HISTORY OF PRESENT ILLNESS HISTORY OF PRESENT ILLNESS: PAIN THE PATIENT DESCRIBES THE PAIN... FALL RISK SCREENING: SCREENING :NO FALLS IN THE PAST YEAR TODAY'S VISIT: NOTES: IS S/P BILATERAL CERVICAL FACET BLOCK ON 09/27/16. HEADACHES WHICH START AT THE BACK OF HEAD IMPROVED BUT ARE NOW STARTING TO RETURN. NOTES WITH NECK MOVEMENT CRACKS AND POPS AND THIS IS PAINFUL AT BASE OF NECK TO SHOULDER BLADES. HAS IMPROVED MOVEMENT IN SHOULDER SHRUG BUT THIS CAN BE PAINFUL. IS VERY HARD TO GET TO SLEEP. RECENTLY STARTED ON SEROQUEL. REMAINS ON REMICADE.. CURRENT MEDICATIONS TAKING MENS MULTIVITAMIN PLUS TABLET 1 TAB ORALLY DAILY TAKING VOLTAREN 1 % GEL 1 TAB(S) EXTERNALLY DAILY, NEEDED TAKING REMICADE 100 MG SOLUTION RECONSTITUTED INTRAVENOUS EVERY 8 WEEKS TAKING AIRBORNE TABLET EFFERVESCENT ORALLY ONCE DAILY TAKING DEXILANT 60 MG CAPSULE DELAYED RELEASE 1 CAPSULE ORALLY ONCE A DAY TAKING FERROUS SULFATE 325 (65 FE) MG TABLET 1 TABLET ORALLY ONCE A DAY TAKING MIRALAX - PACKET 1 PACKET MIXED WITH 8 OUNCES OF FLUID ORALLY TWICE DAILY NEEDED TAKING ZANTAC 300 MG TABLET 1 TABLET AT BEDTIME ORALLY ONCE A DAY TAKING COLACE 100 MG CAPSULE 1 CAPSULE NEEDED ORALLY TWICE A DAY TAKING PROZAC 20 MG CAPSULE 3 CAPSULE IN THE MORNING ORALLY ONCE A DAY TAKING VITAMIN D (ERGOCALCIFEROL) 40748 CAPSULE 1 CAPSULE ORALLY WEEKLY TAKING QUETIAPINE FUMARATE 100 MG TABLET 1 TABLET ORALLY BEFORE BEDTIME TAKING MORPHINE SULFATE 15 MG TABLET 1-2 TABLET ORALLY EVERY 4 -6 HRS PRN PAIN MDD=4 TAKING SEROQUEL 100 MG TABLET 1 TABLET ORALLY BEFORE BEDTIME NOT-TAKING BENADRYL ALLERGY 25 MG TABLET 1 TABLET ORALLY EVERY 6 HRS NEEDED, NOTES: NONE NOT-TAKING CAPSAICIN 0.1 % CREAM 1 APPLICATION TO AFFECTED AREA NEEDED EXTERNALLY THREE TIMES A DAY DISCONTINUED SOMA 350 MG TABLET 1 TABLET NEEDED ORALLY BEFORE BEDTIME MDD=1, NOTES: NONE RECENT MEDICATION LIST REVIEWED AND RECONCILED WITH THE PATIENT PAST MEDICAL HISTORY CHRONIC LOW BACK PAIN (INJURED AT WORK) - SUMMER 2009 GERD, 03/05 EGD IRREG Z LINE, REINDL VIT D DEF FE DEF ANEMIA FORMER SMOKER, QUIT 01/02, SMOKED 18 Y, 1/2 PPD ANKYLOSING SPONDYLITIS - DR SOUZA DX 03/05 02/03 CT CHEST 8.5 MM CAVITARY LESION(LIKELY ABSCESS) 04/05 - PER PULM NO FURTHER IMAGING REQUIRED ALLERGIES N.K.D.A. REVIEW OF SYSTEMS CONSTITUTIONAL: ANY CHANGE IN YOUR MEDICAL CONDITION? NO . CHILLS NO . FEVER NO . INFECTION: DO YOU HAVE NEW INFECTIONS? NO . DO YOU HAVE HISTORY OF MRSA? NO . MUSCULOSKELETAL: ANY NEW PATTERNS OF PAIN OR NUMBNESS? YES, PAIN CENTER OF BACK X 2 DAYS . GASTROENTEROLOGY: ANY NEW CHANGE IN BOWEL CONTROL? NO . GENITOURINARY: ANY NEW CHANGE IN BLADDER CONTROL? NO . IS THERE A CHANCE YOU COULD BE ? NO . HEMATOLOGY/LYMPH: DO YOU TAKE ANY BLOOD THINNERS? (FOR EXAMPLE- COUMADIN, PLAVIX, AGGRENOX, PLATEL, PRADAXA, OR XARELTO) NO . WHEN WAS YOUR LAST DOSE? DATE: TIME: . NEUROLOGY: HAVE YOU FALLEN IN THE PAST 6 MONTHS? NO . ANY NEW EXTREMITY NUMBNESS OR WEAKNESS? NO . CARDIOLOGY: DO YOU HAVE A PACEMAKER OR DEFIBRILLATOR? NO . RESPIRATORY: HAVE YOU BEEN SICK IN THE PAST WEEK? NO . FEVER NO . FLU LIKE SYMPTOMS? NO . COUGH NO . INTEGUMENTARY: DO YOU HAVE ANY RASHES OR OPEN SORES? NO . ALLERGIC/IMMUNO: ARE YOU ALLERGIC TO SHELLFISH OR IV DYE? NO . ANY NEW ALLERGIES? NO . PSYCHIATRIC: DO YOU HAVE THOUGHTS OF HURTING YOURSELF OR SOMEONE ELSE? NO . ARE YOU ABUSED, NEGLECTED, OR IN AN UNSAFE ENVIRONMENT? NO . ENDOCRINOLOGY: ARE YOU DIABETIC? NO . OTHER: DO YOU NEED ANY PRESCRIPTIONS? NO . IF YES, PLEASE LIST: ____ . ANY NEW PROBLEMS WITH YOUR MEDICATIONS? NO . WHEN DID YOU LAST EAT? ____ . WHEN DID YOU LAST DRINK? ____ . WHAT DID YOU LAST DRINK? ____ . NAME OF PERSON DRIVING YOU HOME? ____ . DO YOU HAVE ANY OTHER QUESTIONS OR CONCERNS FORGOT HIS PAIN DIARY. STATES LITTLE RELIEF FROM FACET BLOCK DONE 09/27/16 . REVIEWED BY: PROVIDER: TOM JOLLY . VITAL SIGNS WT 168 LBS, HT 62 IN, BMI 30.72 INDEX, BP 162/87 MM HG, HR 82 /MIN, RR 16 /MIN, TEMP 97.7 F, OXYGEN SAT % 96%, NA INITIALS SC 10:01, REVIEWED BY: DANNA. EXAMINATION GENERAL EXAMINATION: PSYCHALERT , ORIENTED X 3 , APPROPRIATE MOOD AND AFFECT . LUNGS:CLEAR TO AUSCULTATION BILATERALLY, DECREASED AIR ENTRY AT BASES. HEART:HEART RATE REGULAR. MUSCULOSKELETAL:TENDER AT BILATERAL OCCIPITAL.NOTCH REGION. OVER THE C7 PROMINENCE AND ALONG MID THORACIC SPINOUS PROCESSES. CAN BRING HEAD TO ALMOST FULL UPRIGHT POSITION TODAY. IMPROVED ROTATION OF NECK NOTED. 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 CALL WHEN SCRIPTS DUE. CLINICAL NOTES: ISTOP REGISTRY REVIEWED AND DEMNOSTRATES COMPLLIANCE. BRINGS IN MEDICATIONS WHICH IS APPROPRIATE FOR WHAT WAS DISPENSED. RECENT URINE TOXICOLOGY REVIEWED. NO UNAUTHORIZED MEDICATIONS. NO ILLICIT SUBSTANCES AND PRESCRIBED MEDICATIONS WERE PRESENT. PROCEDURE CODES FA211 ESTABILISHED PATIENT [facility] CHARGE DISPOSITION & COMMUNICATION FOLLOW UP 6 WEEKS (REASON: NECK/BACK PAIN) ELECTRONICALLY SIGNED BY ILIA REAGAN ON 11/06/2016 AT 02:07 PM EDT DISCLAIMER : THIS IS A VISIT SUMMARY EXTRACTED FROM THE [employer] CHART. IT IS NOT A COPY OF THE [employer] PROGRESS NOTE. JANEL
== END ==
LOC: M PAIN 09:20
PROVIDERS: ATTEND Nurse Practitioner Family
DX: M79.1 Myalgia (principal); M45.0 Ankylosing spondylitis of multiple sites in spine; Z79.891 Long term (current) use of opiate analgesic; Z79.899 Other long term (current) drug therapy

== ENCOUNTER → 2016-10-21 | Outpatient (CLI) | payer BC ==
[~2016-10-21] VITALS: Ht 157.5 cm; Wt 71.7 kg
[~2016-10-21] MED LIST changes: +LIDOCAINE 2% INJ 100 MG/5 ML SDV (FOR ANES.) As Ordered ONE; +NS 1,000 ML IV ONE; +PROPOFOL 200 MG/20 ML VIAL As Ordered ONE
--- NOTE | 2016-10-21 14:11 | ROOR ---
Patient Name: Renato Powell Procedure Date: 10/21/2016 1:46 PM Date of : 1975 Age: 40 Room: [facility] Gender: Male Note Status: Finalized Procedure: Upper GI endoscopy Indications: Heartburn, Hematemesis, Suspected gastroparesis Providers: Venkata HUNTER MD Referring MD: ROB Rojas Requesting Provider: Medicines: Monitored Anesthesia Care Complications: No immediate complications. Procedure: Pre-Anesthesia Assessment: - The heart rate, respiratory rate, oxygen saturations, blood pressure, adequacy of pulmonary ventilation, and response to care were monitored throughout the procedure. The Endoscope was introduced through the mouth, and advanced to the second part of duodenum. The upper GI endoscopy was accomplished without difficulty. The patient tolerated the procedure well. Findings: The Z-line was variable. This was biopsied with a cold forceps for evaluation to rule out Benson's Esophagus. The examined esophagus was normal. The entire examined stomach was normal (small hiatal hernia, large volume sometimes seen in gastroparesis). The examined duodenum was normal. Impression: - Z-line variable. Biopsied to r/o short barretts esophagus. - Normal esophagus. - Small Hiatal hernia with otherwise normal stomach. - Normal examined duodenum. Recommendation: - Continue present medications. - Follow an antireflux regimen. - Gastroparesis diet: - Eat smaller, more frequent meals throughout the day. - Low fat diet. - Liquid/soft foods are tolerated better than solid foods. - Low fiber/well cooked vegetables are tolerated better than high fiber/fibrous foods/raw vegetables. - Avoid medications that inhibit gastric/intestinal motility such as narcotic medications. Venkata Hunter MD Venkata HUNTER MD 10/21/2016 2:11:17 PM This report has been signed electronically. Number of Addenda: 0 Note Initiated On: 10/21/2016 1:46 PM Estimated Blood Loss: Estimated blood loss: none.
[2016-10-21 14:45] VITALS: BP 137/75
== END | disposition home or self-care (01) ==
LOC: M OPP 12:31
PROVIDERS: ATTEND Internal Medicine Gastroenterology
DX: K21.9 Gastro-esophageal reflux disease without esophagitis (principal); K44.9 Diaphragmatic hernia without obstruction or gangrene; K22.8 Other specified diseases of esophagus; K29.70 Gastritis, unspecified, without bleeding; M19.90 Unspecified osteoarthritis, unspecified site; Z87.891 Personal history of nicotine dependence; Z79.899 Other long term (current) drug therapy

== ENCOUNTER → 2016-11-12 | Outpatient (CLI) | payer BC ==
[~2016-11-12] MED LIST changes: -LIDOCAINE 2% INJ 100 MG/5 ML SDV (FOR ANES.) As Ordered ONE; -NS 1,000 ML IV ONE; -PROPOFOL 200 MG/20 ML VIAL As Ordered ONE
[2016-11-12 19:02] LABS: FREE T4 1.05 NG/DL (0.76-1.46)
== END ==
LOC: M WUC 14:02
PROVIDERS: ATTEND Physician Assistant Medical
DX: K31.84 Gastroparesis (principal)

== ENCOUNTER → 2016-12-02 | Outpatient (CLI) | payer BC ==
[~2016-12-02] MED LIST changes: +CARI350T PO; -CARI350T20 PO; -DEXI60CA PO; +DEXI60CA2 PO; +FLUO20CA19 PO; -FLUO20CA9 PO; +META1TAB22 PO; -META800T82 PO; +TRAZ-136 PO; -TRAZ100T4 PO; +VITA1CAP40 PO; -VITA50003 PO; +VOLT1GEL15 TD; -VOLT1GEL24 TD
--- NOTE | 2016-12-25 23:56 | ECWPNPC ---
PATIENT NAME: JOSUE MARTINEZ : 1975 GENDER: MALE VISIT DATE: 12/02/2016 DISCHARGE DATE: 12/02/16 1139 VISIT LOCKED DATE TIME: PHYSICIAN: TOM SALINAS RESOURCE: TOM SALINAS REASON FOR APPOINTMENT 1. NECK/BACK PAIN HISTORY OF PRESENT ILLNESS HISTORY OF PRESENT ILLNESS: PAIN THE PATIENT DESCRIBES THE PAIN... FALL RISK SCREENING: SCREENING :NO FALLS IN THE PAST YEAR TODAY'S VISIT: NOTES: RATES PAIN TODAY 5/10. CONTINUES TO HAVE PAIN AT NECK AND LOW BACK AND HAS NEW DISCOMFORT AT LEFT HIPDESCRIBES PAIN . IS HAVING DISCOMFORT LEFT NECK AND IS HAVING RADIATION OVER THE UPPER ARMS. NO LOSS OF STRENGTH IN UPPER EXTREMITIES.. CURRENT MEDICATIONS TAKING MENS MULTIVITAMIN PLUS TABLET 1 TAB ORALLY DAILY TAKING VOLTAREN 1 % GEL 1 TAB(S) EXTERNALLY DAILY, NEEDED TAKING REMICADE 100 MG SOLUTION RECONSTITUTED INTRAVENOUS EVERY 8 WEEKS TAKING AIRBORNE TABLET EFFERVESCENT ORALLY ONCE DAILY TAKING DEXILANT 60 MG CAPSULE DELAYED RELEASE 1 CAPSULE ORALLY ONCE A DAY TAKING FERROUS SULFATE 325 (65 FE) MG TABLET 1 TABLET ORALLY ONCE A DAY TAKING MIRALAX - PACKET 1 PACKET MIXED WITH 8 OUNCES OF FLUID ORALLY TWICE DAILY NEEDED TAKING ZANTAC 300 MG TABLET 1 TABLET AT BEDTIME ORALLY ONCE A DAY TAKING COLACE 100 MG CAPSULE 1 CAPSULE NEEDED ORALLY TWICE A DAY TAKING VITAMIN D (ERGOCALCIFEROL) 65858 CAPSULE 1 CAPSULE ORALLY WEEKLY TAKING MORPHINE SULFATE 15 MG TABLET 1-2 TABLET ORALLY EVERY 4 -6 HRS PRN PAIN MDD=4 TAKING PROZAC 20 MG CAPSULE 3 CAPSULE IN THE MORNING ONCE A DAY ORALLY 30 DAY(S) TAKING QUETIAPINE FUMARATE 200 MG TABLET 1 TABLET ORALLY BEFORE BEDTIME NOT-TAKING BENADRYL ALLERGY 25 MG TABLET 1 TABLET ORALLY EVERY 6 HRS NEEDED, NOTES: NONE NOT-TAKING CAPSAICIN 0.1 % CREAM 1 APPLICATION TO AFFECTED AREA NEEDED EXTERNALLY THREE TIMES A DAY MEDICATION LIST REVIEWED AND RECONCILED WITH THE PATIENT PAST MEDICAL HISTORY CHRONIC LOW BACK PAIN (INJURED AT WORK) - SUMMER 2009 GERD, 03/05 EGD IRREG Z LINE, REINDL VIT D DEF FE DEF ANEMIA FORMER SMOKER, QUIT 01/02, SMOKED 18 Y, 1/2 PPD ANKYLOSING SPONDYLITIS - DR SUOZA DX 03/05 02/03 CT CHEST 8.5 MM CAVITARY LESION(LIKELY ABSCESS) 04/05 - PER PULM NO FURTHER IMAGING REQUIRED ALLERGIES N.K.D.A. REVIEW OF SYSTEMS REVIEWED BY: PROVIDER: TOM JOLLY . CONSTITUTIONAL: ANY CHANGE IN YOUR MEDICAL CONDITION? NO . CHILLS NO . FEVER NO . INFECTION: DO YOU HAVE NEW INFECTIONS? NO . DO YOU HAVE HISTORY OF MRSA? NO . MUSCULOSKELETAL: ANY NEW PATTERNS OF PAIN OR NUMBNESS? NO . GASTROENTEROLOGY: ANY NEW CHANGE IN BOWEL CONTROL? NO . GENITOURINARY: ANY NEW CHANGE IN BLADDER CONTROL? NO . IS THERE A CHANCE YOU COULD BE ? NO . HEMATOLOGY/LYMPH: DO YOU TAKE ANY BLOOD THINNERS? (FOR EXAMPLE- COUMADIN, PLAVIX, AGGRENOX, PLATEL, PRADAXA, OR XARELTO) NO . WHEN WAS YOUR LAST DOSE? DATE: TIME: . NEUROLOGY: HAVE YOU FALLEN IN THE PAST 6 MONTHS? NO . ANY NEW EXTREMITY NUMBNESS OR WEAKNESS? NO . CARDIOLOGY: DO YOU HAVE A PACEMAKER OR DEFIBRILLATOR? NO . RESPIRATORY: HAVE YOU BEEN SICK IN THE PAST WEEK? NO . FEVER YES . FLU LIKE SYMPTOMS? NO . COUGH NO . INTEGUMENTARY: DO YOU HAVE ANY RASHES OR OPEN SORES? NO . ALLERGIC/IMMUNO: ARE YOU ALLERGIC TO SHELLFISH OR IV DYE? NO . ANY NEW ALLERGIES? NO . PSYCHIATRIC: DO YOU HAVE THOUGHTS OF HURTING YOURSELF OR SOMEONE ELSE? NO . ARE YOU ABUSED, NEGLECTED, OR IN AN UNSAFE ENVIRONMENT? NO . ENDOCRINOLOGY: ARE YOU DIABETIC? NO . OTHER: DO YOU NEED ANY PRESCRIPTIONS? NO . IF YES, PLEASE LIST: ____ . ANY NEW PROBLEMS WITH YOUR MEDICATIONS? NO . WHEN DID YOU LAST EAT? ____ . WHEN DID YOU LAST DRINK? ____ . WHAT DID YOU LAST DRINK? ____ . NAME OF PERSON DRIVING YOU HOME? ____ . DO YOU HAVE ANY OTHER QUESTIONS OR CONCERNS YES, LEFT HIP JUST STARTED HURTING YESTERDAY // NECK STILL BUGGING ME . VITAL SIGNS WT 173.6 LBS, HT 62 IN, BMI 31.75 INDEX, BP 139/83 MM HG, HR 76 /MIN, RR 18 /MIN, TEMP 97.6 F, OXYGEN SAT % 96%, NA INITIALS SC 11:09. EXAMINATION GENERAL EXAMINATION: PSYCHALERT , ORIENTED X 3 , APPROPRIATE MOOD AND AFFECT . LUNGS:CLEAR TO AUSCULTATION BILATERALLY, DECREASED AIR ENTRY AT BASES. HEART:HEART RATE REGULAR. MUSCULOSKELETAL:TENDER AT BILATERAL OCCIPITAL.NOTCH REGION. OVER THE C7 PROMINENCE AND ALONG MID THORACIC SPINOUS PROCESSES. CAN BRING HEAD TO ALMOST FULL UPRIGHT POSITION TODAY. IMPROVED ROTATION OF NECK NOTED. 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 PREVENTIVE MEDICINE DISCUSSED FACET INFO AND PREPROCEDURE CARE/ PT EXPRESSES UNDERSTANDING. PROCEDURE CODES FA211 ESTABILISHED PATIENT [facility] CHARGE DISPOSITION & COMMUNICATION FOLLOW UP SCHED INJECTION ABOUT 01/14/17 (REASON: CHECK AUTH FOR LEFT THERAPEUTIC LUMBAR FACET BLOCK /ON REMICADE) ELECTRONICALLY SIGNED BY ILIA REAGAN ON 12/25/2016 AT 10:26 AM EDT DISCLAIMER : THIS IS A VISIT SUMMARY EXTRACTED FROM THE [email or web address] CHART. IT IS NOT A COPY OF THE [email or web address] PROGRESS NOTE. JANEL
== END ==
LOC: M PAIN 10:20
PROVIDERS: ATTEND Nurse Practitioner Family
DX: M79.1 Myalgia (principal); M45.0 Ankylosing spondylitis of multiple sites in spine; Z79.891 Long term (current) use of opiate analgesic; Z79.899 Other long term (current) drug therapy; D50.9 Iron deficiency anemia, unspecified; K21.9 Gastro-esophageal reflux disease without esophagitis; E55.9 Vitamin D deficiency, unspecified

== ENCOUNTER → 2016-12-22 | Outpatient (CLI) | payer BC ==
--- NOTE | 2017-01-12 00:13 | ECWPNPC ---
PATIENT NAME: JOSUE MARTINEZ : 1975 GENDER: MALE VISIT DATE: 12/22/2016 DISCHARGE DATE: 12/22/16 1137 VISIT LOCKED DATE TIME: PHYSICIAN: TOM SALINAS RESOURCE: TOM SALINAS REASON FOR APPOINTMENT 1. MEDS HISTORY OF PRESENT ILLNESS HISTORY OF PRESENT ILLNESS: PAIN THE PATIENT DESCRIBES THE PAIN... FALL RISK SCREENING: SCREENING :NO FALLS IN THE PAST YEAR TODAY'S VISIT: NOTES: REPORTS MORPHINE IS NOT HELPING EVEN WITH INCREASED DOSAGE.RATES PAIN TODAY 7/10. DESCRIBES PAIN CONSTANT, ACHING, SHARP, STABBING TENDER , THROBBING AND SORE. PAIN CENTERED AT BASE OF NECK AND UPPER SCAPULA LEFT > THAN RIGHT, AND LOW BACK LEFT SIDE. CURRENT MEDICATIONS TAKING MENS MULTIVITAMIN PLUS TABLET 1 TAB ORALLY DAILY TAKING VOLTAREN 1 % GEL 1 TAB(S) EXTERNALLY DAILY, NEEDED TAKING REMICADE 100 MG SOLUTION RECONSTITUTED INTRAVENOUS EVERY 8 WEEKS TAKING AIRBORNE TABLET EFFERVESCENT ORALLY ONCE DAILY TAKING DEXILANT 60 MG CAPSULE DELAYED RELEASE 1 CAPSULE ORALLY ONCE A DAY TAKING FERROUS SULFATE 325 (65 FE) MG TABLET 1 TABLET ORALLY ONCE A DAY TAKING MIRALAX - PACKET 1 PACKET MIXED WITH 8 OUNCES OF FLUID ORALLY TWICE DAILY NEEDED TAKING ZANTAC 300 MG TABLET 1 TABLET AT BEDTIME ORALLY ONCE A DAY TAKING COLACE 100 MG CAPSULE 1 CAPSULE NEEDED ORALLY TWICE A DAY TAKING VITAMIN D (ERGOCALCIFEROL) 67874 CAPSULE 1 CAPSULE ORALLY WEEKLY TAKING QUETIAPINE FUMARATE 200 MG TABLET 1 TABLET ORALLY BEFORE BEDTIME TAKING MORPHINE SULFATE 15 MG TABLET 1-2 TABLET ORALLY EVERY 4 -6 HRS PRN PAIN MDD=6 TAKING PROZAC 20 MG CAPSULE 3 CAPSULE IN THE MORNING ONCE A DAY ORALLY 30 DAY(S) NOT-TAKING BENADRYL ALLERGY 25 MG TABLET 1 TABLET ORALLY EVERY 6 HRS NEEDED, NOTES: NONE NOT-TAKING CAPSAICIN 0.1 % CREAM 1 APPLICATION TO AFFECTED AREA NEEDED EXTERNALLY THREE TIMES A DAY MEDICATION LIST REVIEWED AND RECONCILED WITH THE PATIENT PAST MEDICAL HISTORY CHRONIC LOW BACK PAIN (INJURED AT WORK) - SUMMER 2009 GERD, 03/05 EGD IRREG Z LINE, REINDL VIT D DEF FE DEF ANEMIA FORMER SMOKER, QUIT 01/02, SMOKED 18 Y, 1/2 PPD ANKYLOSING SPONDYLITIS - DR SOUZA DX 03/05 02/03 CT CHEST 8.5 MM CAVITARY LESION(LIKELY ABSCESS) 11/15 - PER PULM NO FURTHER IMAGING REQUIRED ALLERGIES N.K.D.A. SURGICAL HISTORY DENIES PAST SURGICAL HISTORY HOSPITALIZATION/MAJOR DIAGNOSTIC PROCEDURE DENIES PAST HOSPITALIZATION REVIEW OF SYSTEMS REVIEWED BY: PROVIDER: TOM JOLLY . CONSTITUTIONAL: ANY CHANGE IN YOUR MEDICAL CONDITION? NO . CHILLS NO . FEVER NO . INFECTION: DO YOU HAVE NEW INFECTIONS? NO . DO YOU HAVE HISTORY OF MRSA? NO . MUSCULOSKELETAL: ANY NEW PATTERNS OF PAIN OR NUMBNESS? NO . GASTROENTEROLOGY: ANY NEW CHANGE IN BOWEL CONTROL? NO . GENITOURINARY: ANY NEW CHANGE IN BLADDER CONTROL? NO . IS THERE A CHANCE YOU COULD BE ? NO . HEMATOLOGY/LYMPH: DO YOU TAKE ANY BLOOD THINNERS? (FOR EXAMPLE- COUMADIN, PLAVIX, AGGRENOX, PLATEL, PRADAXA, OR XARELTO) NO . WHEN WAS YOUR LAST DOSE? DATE: TIME: . NEUROLOGY: HAVE YOU FALLEN IN THE PAST 6 MONTHS? NO . ANY NEW EXTREMITY NUMBNESS OR WEAKNESS? NO . CARDIOLOGY: DO YOU HAVE A PACEMAKER OR DEFIBRILLATOR? NO . RESPIRATORY: HAVE YOU BEEN SICK IN THE PAST WEEK? NO . FEVER NO . FLU LIKE SYMPTOMS? NO . COUGH NO . INTEGUMENTARY: DO YOU HAVE ANY RASHES OR OPEN SORES? NO . ALLERGIC/IMMUNO: ARE YOU ALLERGIC TO SHELLFISH OR IV DYE? NO . ANY NEW ALLERGIES? NO . PSYCHIATRIC: DO YOU HAVE THOUGHTS OF HURTING YOURSELF OR SOMEONE ELSE? NO . ARE YOU ABUSED, NEGLECTED, OR IN AN UNSAFE ENVIRONMENT? NO . ENDOCRINOLOGY: ARE YOU DIABETIC? NO . OTHER: DO YOU NEED ANY PRESCRIPTIONS? YES, TO DISCUSS WITH CIARA SALINAS, PT FEELS PAIN MEDS ARE NOT WORKING . IF YES, PLEASE LIST: ____ . ANY NEW PROBLEMS WITH YOUR MEDICATIONS? NO . WHEN DID YOU LAST EAT? ____ . WHEN DID YOU LAST DRINK? ____ . WHAT DID YOU LAST DRINK? ____ . NAME OF PERSON DRIVING YOU HOME? ____ . DO YOU HAVE ANY OTHER QUESTIONS OR CONCERNS NO . VITAL SIGNS WT 175.0 LBS, HT 62 IN, BMI 32.00 INDEX, BP 149/93 MM HG, HR 70 /MIN, RR 18 /MIN, TEMP 97.3 F, OXYGEN SAT % 95, SAFE IN ENV? (Y/N) YES, NA INITIALS MP 1114, REVIEWED BY: KINA. EXAMINATION GENERAL EXAMINATION: PSYCHALERT , ORIENTED X 3 , APPROPRIATE MOOD AND AFFECT . LUNGS:CLEAR TO AUSCULTATION BILATERALLY, DECREASED AIR ENTRY AT BASES. HEART:HEART RATE REGULAR. MUSCULOSKELETAL:TENDER AT BILATERAL OCCIPITAL.NOTCH REGION. OVER THE C7 PROMINENCE AND ALONG MID THORACIC SPINOUS PROCESSES. CAN BRING HEAD TO ALMOST FULL UPRIGHT POSITION TODAY. IMPROVED ROTATION OF NECK NOTED. CEO AND FOUNDER STRENGTH EQUAL AND STRONG. 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 PROCEDURE CODES FA211 ESTABILISHED PATIENT [facility] CHARGE DISPOSITION & COMMUNICATION FOLLOW UP 2 WEEKS (REASON: MED MANAGEMENT) ELECTRONICALLY SIGNED BY ILIA REAGAN ON 01/11/2017 AT 06:23 PM EDT DISCLAIMER : THIS IS A VISIT SUMMARY EXTRACTED FROM THE [employer] CHART. IT IS NOT A COPY OF THE [employer] PROGRESS NOTE. JANEL
== END ==
LOC: M PAIN 10:45
PROVIDERS: ATTEND Nurse Practitioner Family
DX: M79.1 Myalgia (principal); M45.0 Ankylosing spondylitis of multiple sites in spine; D50.9 Iron deficiency anemia, unspecified; E55.9 Vitamin D deficiency, unspecified; K21.9 Gastro-esophageal reflux disease without esophagitis; Z79.891 Long term (current) use of opiate analgesic; Z79.899 Other long term (current) drug therapy; Z87.891 Personal history of nicotine dependence

== ENCOUNTER → 2017-01-04 | Outpatient (CLI) | payer BC ==
[~2017-01-04] MED LIST changes: +BUPIVACAINE HCL 0.25% 30 ML VIAL As Ordered ONE; +ISOVUE-M 300 61% 15ML VIAL (Q9967) As Ordered ONE; +LIDOCAINE 1% SDV INJ 30 ML VIAL As Ordered ONE; +TRIAMCINOLONE ACETONIDE SUSP 40 MG/ML VIAL (J3301) As Ordered ONE; +diazePAM 5 MG TAB As Ordered ONE; +oxyCODONE 5MG TAB As Ordered ONE
--- NOTE | 2017-01-04 11:11 | REP ---
Partial lumbar spine series: Two views. . History: Injection procedure for pain. 15 seconds of fluoroscopy time is reported. Findings: A sequence of 2 fluoroscopically obtained last image hold procedural spot radiographs of the lumbar spine document needle position and contrast injection associated with injection procedure. Signed by Raghav Ludwig MD 01/04/2017 11:02 A
--- NOTE | 2017-01-09 00:21 | ECWPNPC ---
PATIENT NAME: JOSUE MARTINEZ : 1975 GENDER: MALE VISIT DATE: 01/04/2017 DISCHARGE DATE: 01/04/17 1147 VISIT LOCKED DATE TIME: PHYSICIAN: DREW AGUILAR RESOURCE: DREW AGUILAR REASON FOR APPOINTMENT 1. LEFT LUMBAR THORACIC HISTORY OF PRESENT ILLNESS HISTORY OF PRESENT ILLNESS: PAIN THE PATIENT DESCRIBES THE PAIN... FALL RISK SCREENING: SCREENING :NO FALLS IN THE PAST YEAR CURRENT MEDICATIONS TAKING MENS MULTIVITAMIN PLUS TABLET 1 TAB ORALLY DAILY, NOTES: 01/03/17 1400 TAKING VOLTAREN 1 % GEL 1 TAB(S) EXTERNALLY DAILY, NEEDED, NOTES: NONE LATELY TAKING REMICADE 100 MG SOLUTION RECONSTITUTED INTRAVENOUS EVERY 8 WEEKS, NOTES: 2 MONTHS AGO TAKING AIRBORNE TABLET EFFERVESCENT ORALLY ONCE DAILY, NOTES: 01/03/17 1400 TAKING DEXILANT 60 MG CAPSULE DELAYED RELEASE 1 CAPSULE ORALLY ONCE A DAY, NOTES: 01/03/17 1400 TAKING FERROUS SULFATE 325 (65 FE) MG TABLET 1 TABLET ORALLY ONCE A DAY, NOTES: 01/03/17 1400 TAKING MIRALAX - PACKET 1 PACKET MIXED WITH 8 OUNCES OF FLUID ORALLY TWICE DAILY NEEDED, NOTES: 01/04/17/ 0100 TAKING ZANTAC 300 MG TABLET 1 TABLET AT BEDTIME ORALLY ONCE A DAY, NOTES: 01/04/17 0000 TAKING COLACE 100 MG CAPSULE 1 CAPSULE NEEDED ORALLY TWICE A DAY, NOTES: 01/03/17 1400 TAKING VITAMIN D (ERGOCALCIFEROL) 63255 CAPSULE 1 CAPSULE ORALLY WEEKLY, NOTES: 01/02/17 TAKING QUETIAPINE FUMARATE 200 MG TABLET 1 TABLET ORALLY BEFORE BEDTIME, NOTES: 01/04/17 0000 TAKING PROZAC 20 MG CAPSULE 3 CAPSULE IN THE MORNING ONCE A DAY ORALLY 30 DAY(S) , NOTES: 01/04/17 0800 TAKING OXYCODONE HCL 15 MG TABLET 1 TABLET NEEDED ORALLY EVERY 6 HRS PRN PAIN MDD=4, NOTES: 01/03/17 2200 NOT-TAKING QUETIAPINE FUMARATE 100 MG TABLET 1 1/2 TABLET BEFORE BEDTIME ORALLY 30 DAY(S) NOT-TAKING BENADRYL ALLERGY 25 MG TABLET 1 TABLET ORALLY EVERY 6 HRS NEEDED, NOTES: NONE NOT-TAKING CAPSAICIN 0.1 % CREAM 1 APPLICATION TO AFFECTED AREA NEEDED EXTERNALLY THREE TIMES A DAY MEDICATION LIST REVIEWED AND RECONCILED WITH THE PATIENT PAST MEDICAL HISTORY CHRONIC LOW BACK PAIN (INJURED AT WORK) - SUMMER 2009 GERD, 03/05 EGD IRREG Z LINE, REINDL VIT D DEF FE DEF ANEMIA FORMER SMOKER, QUIT 01/02, SMOKED 18 Y, 1/2 PPD ANKYLOSING SPONDYLITIS - DR SOUZA DX 03/05 02/03 CT CHEST 8.5 MM CAVITARY LESION(LIKELY ABSCESS) 04/05 - PER PULM NO FURTHER IMAGING REQUIRED ALLERGIES N.K.D.A. SURGICAL HISTORY DENIES PAST SURGICAL HISTORY HOSPITALIZATION/MAJOR DIAGNOSTIC PROCEDURE DENIES PAST HOSPITALIZATION REVIEW OF SYSTEMS REVIEWED BY: PROVIDER: . CONSTITUTIONAL: ANY CHANGE IN YOUR MEDICAL CONDITION? NO . CHILLS NO . FEVER NO . INFECTION: DO YOU HAVE NEW INFECTIONS? YES, FEVER OF 102 LAST MONDAY, PT TOOK TYLENOL, FEVER RESOLVED, PT STATES HE FEELS FINE TODAY . DO YOU HAVE HISTORY OF MRSA? NO . MUSCULOSKELETAL: ANY NEW PATTERNS OF PAIN OR NUMBNESS? NO . GASTROENTEROLOGY: ANY NEW CHANGE IN BOWEL CONTROL? NO . GENITOURINARY: ANY NEW CHANGE IN BLADDER CONTROL? NO . IS THERE A CHANCE YOU COULD BE ? NO . HEMATOLOGY/LYMPH: DO YOU TAKE ANY BLOOD THINNERS? (FOR EXAMPLE- COUMADIN, PLAVIX, AGGRENOX, PLATEL, PRADAXA, OR XARELTO) NO . WHEN WAS YOUR LAST DOSE? DATE: TIME: . NEUROLOGY: HAVE YOU FALLEN IN THE PAST 6 MONTHS? NO . ANY NEW EXTREMITY NUMBNESS OR WEAKNESS? NO . CARDIOLOGY: DO YOU HAVE A PACEMAKER OR DEFIBRILLATOR? NO . RESPIRATORY: HAVE YOU BEEN SICK IN THE PAST WEEK? NO . FEVER NO . FLU LIKE SYMPTOMS? NO . COUGH NO . INTEGUMENTARY: DO YOU HAVE ANY RASHES OR OPEN SORES? NO . ALLERGIC/IMMUNO: ARE YOU ALLERGIC TO SHELLFISH OR IV DYE? NO . ANY NEW ALLERGIES? NO . PSYCHIATRIC: DO YOU HAVE THOUGHTS OF HURTING YOURSELF OR SOMEONE ELSE? NO . ARE YOU ABUSED, NEGLECTED, OR IN AN UNSAFE ENVIRONMENT? NO . ENDOCRINOLOGY: ARE YOU DIABETIC? NO . OTHER: DO YOU NEED ANY PRESCRIPTIONS? NO . IF YES, PLEASE LIST: ____ . ANY NEW PROBLEMS WITH YOUR MEDICATIONS? NO . WHEN DID YOU LAST EAT? 01/03/17 0100 . WHEN DID YOU LAST DRINK? 01/04/17 0800 . WHAT DID YOU LAST DRINK? WATER . NAME OF PERSON DRIVING YOU HOME? SONALI . DO YOU HAVE ANY OTHER QUESTIONS OR CONCERNS NO . VITAL SIGNS WT 166 LBS, HT 62 IN, BMI 30.36 INDEX, BP 116/58 MM HG, HR 71 /MIN, RR 16 /MIN, TEMP 98.1 F, OXYGEN SAT % 97%, REVIEWED BY: CARINA 0930. 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 I EVALUATED THE PATIENT AND REVIEWED THE CHART. I WENT OVER THE RISKS, ALTERNATIVES, AND BENEFITS ASSOCIATED WITH THIS PROCEDURE. THE PATIENT WOULD LIKE TO PROCEED AND GAVE CONSENT TO PERFORM THE PROCEDURE. THE PATIENT DENIES UNEXPLAINABLE WEIGHT LOSS, FEVER, CHILLS, OR NEW CHANGES IN URINARY OR BOWEL CONTROL. DESCRIPTION OF PROCEDURE THE PATIENT WAS BROUGHT TO THE PROCEDURE ROOM AND PLACED IN THE PRONE POSITION. THE LUMBOSACRAL AREA WAS CLEANED WITH CHLORAPREP SOLUTION AND DRAPED ASEPTICALLY. THE PROCEDURE WAS DONE UNDER STERILE CONDITIONS. I CHECKED LATERALITY AND THE LEVEL WHERE THE PROCEDURE WAS GOING TO BE PERFORMED WITH THE PATIENT AND THE SUPPORTING STAFF AT THE MOMENT OF THE TIME OUT IN THE PROCEDURE ROOM. UNDER FLUOROSCOPIC GUIDANCE, THE TARGET POINT WAS SELECTED AT THE LEFT L4-L5, L5-S1, FACET JOINT. TARGET POINT WAS SELECTED AFTER LATERAL ROTATION AND TILT OF THE MAGNIFIER OF THE C-ARM. LIDOCAINE 0.5% WAS USED TO NUMB THE SKIN AND THE SUBCUTANEOUS TISSUE BELOW IT. SPINAL NEEDLES, 22-GAUGE, WERE ADVANCED UNDER FLUOROSCOPIC GUIDANCE AND FOLLOWING PATIENT FEEDBACK UNTIL THE TARGETS WERE TOUCHED. THE POSITION OF THE NEEDLES WAS VERIFIED WITH AP AND LATERAL VIEWS. AFTER PROPER POSITION OF THE NEEDLES WAS ACHIEVED, ISOVUE-M DYE 30% 0.1 ML WAS INJECTED SHOWING ADEQUATE SPREAD OF THE DYE. THEN A SOLUTION OF 1.9 ML OF BUPIVACAINE 0.125% OF KENALOG 10 MG WAS INJECTED AT EACH SITE. THERE WAS NO EVIDENCE OF BLOOD, PARESTHESIA OR CEREBROSPINAL FLUID DURING THE PROCEDURE. THE PATIENT WAS SENT TO THE RECOVERY ROOM. THE PATIENT WAS MOVING THE EXTREMITIES AND DOING WELL. THERE WAS NO COMPLICATION DURING THE PROCEDURE. FLUOROSCOPY TIME WAS 15 SECONDS., L4-L5, L5-S1 POST PROCEDURE NOTE THE PATIENT WILL BE SEEN IN A FOLLOW UP IN THE NEXT FEW WEEKS. INSTRUCTIONS WERE GIVEN, QUESTIONS WERE ANSWERED, AND THE PATIENT EXPRESSED UNDERSTANDING AND AGREED WITH THE PLAN. I QUINN PLAZA DOCUMENTED THE ABOVE INFORMATION ACTING A BUCKSHOT SWAGE OPERATOR FOR DR. AGUILAR. I HAVE REVIEWED THE ABOVE DOCUMENT WRITTEN BY QUINN PLAZA SCRIBRitu AND I VERIFY THAT IT IS ACCURATE. DIAGNOSTIC IMAGING [facility] FACET BLOCK (PAIN)[id number] PROCEDURE CODES 6045F RADXPS IN END [id number] PXD 06725 INJ PARAVERT F JNT L/S 1 LEV 76230 INJ PARAVERT F JNT L/S 2 LEV DISPOSITION & COMMUNICATION FOLLOW UP 3 WEEKS ELECTRONICALLY SIGNED BY DREW AGUILAR MD ON 01/08/2017 AT 12:50 PM EDT DISCLAIMER : THIS IS A VISIT SUMMARY EXTRACTED FROM THE [employer] CHART. IT IS NOT A COPY OF THE [employer] PROGRESS NOTE. MTDJudy
== END ==
LOC: M PAIN 09:00
PROVIDERS: ATTEND Anesthesiology
DX: M51.16 Intervertebral disc disorders with radiculopathy, lumbar region (principal); G89.29 Other chronic pain; M54.5 Low back pain; D50.9 Iron deficiency anemia, unspecified; K21.9 Gastro-esophageal reflux disease without esophagitis; E55.9 Vitamin D deficiency, unspecified; Z87.891 Personal history of nicotine dependence
CPT/HCPCS: 64493; 64494; J3301; Q9967

== ENCOUNTER → 2017-01-05 | Outpatient (CLI) | payer BC ==
[~2017-01-05] MED LIST changes: -BUPIVACAINE HCL 0.25% 30 ML VIAL As Ordered ONE; -ISOVUE-M 300 61% 15ML VIAL (Q9967) As Ordered ONE; -LIDOCAINE 1% SDV INJ 30 ML VIAL As Ordered ONE; -TRIAMCINOLONE ACETONIDE SUSP 40 MG/ML VIAL (J3301) As Ordered ONE; -diazePAM 5 MG TAB As Ordered ONE; -oxyCODONE 5MG TAB As Ordered ONE
--- NOTE | 2017-01-05 23:55 | ECWPNPC ---
PATIENT NAME: JOSUE MARTINEZ : 1975 GENDER: MALE VISIT DATE: 01/05/2017 DISCHARGE DATE: 01/05/17940 VISIT LOCKED DATE TIME: PHYSICIAN: TOM SALINAS RESOURCE: TOM SALINAS REASON FOR APPOINTMENT 1. MEDS HISTORY OF PRESENT ILLNESS HISTORY OF PRESENT ILLNESS: PAIN THE PATIENT DESCRIBES THE PAIN... FALL RISK SCREENING: SCREENING :NO FALLS IN THE PAST YEAR TODAY'S VISIT: NOTES: MED CHANGE MADE FROM LAST VISIT FROM MORPHINE TO OXYCODONE. NOTES A BURST OF ENERGY WITH THE OXYCODONE BUT NO PAIN RELIEF. WANTS SOMETHING FOR LONG LASTING PAIN RELIEF. HAS INJECTION TREATMENT YESTERDAY WITH GOOD RELIEF OF LOW BACK PAIN. RATES PAIN TODAY 3/10 IN NECK AREA AND 0/10 IN LOW BACK. DID NOT WORK LAST NIGHT SO STATED HAD GOOD NITES SLEEP. . CURRENT MEDICATIONS TAKING MENS MULTIVITAMIN PLUS TABLET 1 TAB ORALLY DAILY TAKING VOLTAREN 1 % GEL 1 TAB(S) EXTERNALLY DAILY, NEEDED TAKING REMICADE 100 MG SOLUTION RECONSTITUTED INTRAVENOUS EVERY 8 WEEKS TAKING AIRBORNE TABLET EFFERVESCENT ORALLY ONCE DAILY TAKING DEXILANT 60 MG CAPSULE DELAYED RELEASE 1 CAPSULE ORALLY ONCE A DAY TAKING FERROUS SULFATE 325 (65 FE) MG TABLET 1 TABLET ORALLY ONCE A DAY TAKING MIRALAX - PACKET 1 PACKET MIXED WITH 8 OUNCES OF FLUID ORALLY TWICE DAILY NEEDED TAKING ZANTAC 300 MG TABLET 1 TABLET AT BEDTIME ORALLY ONCE A DAY TAKING COLACE 100 MG CAPSULE 1 CAPSULE NEEDED ORALLY TWICE A DAY TAKING VITAMIN D (ERGOCALCIFEROL) 42600 CAPSULE 1 CAPSULE ORALLY WEEKLY TAKING QUETIAPINE FUMARATE 200 MG TABLET 1 TABLET ORALLY BEFORE BEDTIME TAKING PROZAC 20 MG CAPSULE 3 CAPSULE IN THE MORNING ONCE A DAY ORALLY 30 DAY(S) TAKING OXYCODONE HCL 15 MG TABLET 1 TABLET NEEDED ORALLY EVERY 6 HRS PRN PAIN MDD=4 NOT-TAKING QUETIAPINE FUMARATE 100 MG TABLET 1 1/2 TABLET BEFORE BEDTIME ORALLY 30 DAY(S) NOT-TAKING BENADRYL ALLERGY 25 MG TABLET 1 TABLET ORALLY EVERY 6 HRS NEEDED, NOTES: NONE NOT-TAKING CAPSAICIN 0.1 % CREAM 1 APPLICATION TO AFFECTED AREA NEEDED EXTERNALLY THREE TIMES A DAY MEDICATION LIST REVIEWED AND RECONCILED WITH THE PATIENT PAST MEDICAL HISTORY CHRONIC LOW BACK PAIN (INJURED AT WORK) - SUMMER 2009 GERD, 03/05 EGD IRREG Z LINE, REINDL VIT D DEF FE DEF ANEMIA FORMER SMOKER, QUIT 01/02, SMOKED 18 Y, 1/2 PPD ANKYLOSING SPONDYLITIS - DR SOUZA DX 03/05 02/03 CT CHEST 8.5 MM CAVITARY LESION(LIKELY ABSCESS) 04/05 - PER PULM NO FURTHER IMAGING REQUIRED ALLERGIES N.K.D.A. SOCIAL HISTORY GENERAL: TOBACCO USE ARE YOU A:NONSMOKER LUNG CANCER SCREENING SMOKING STATUS:NON SMOKER BMI CARE GOAL FOLLOW-UP ABOVE NORMAL BMI FOLLOW-UPDIETARY MANAGEMENT EDUCATION, GUIDANCE, AND COUNSELING ALCOHOL SCREENING DID YOU HAVE A DRINK CONTAINING ALCOHOL IN THE PAST YEAR?YES HOW OFTEN DID YOU HAVE A DRINK CONTAINING ALCOHOL IN THE PAST YEAR?MONTHLY OR LESS (1 POINT) HOW MANY DRINKS DID YOU HAVE ON A TYPICAL DAY WHEN YOU WERE DRINKING IN THE PAST YEAR?1 OR 2 (0 POINTS) HOW OFTEN DID YOU HAVE SIX OR MORE DRINKS ON ONE OCCASION IN THE PAST YEAR?NEVER (0 POINTS) POINTS1 INTERPRETATIONNEGATIVE RECREATIONAL DRUG USE DRUG USE?NO CAFFEINE CAFFEINE USE?YES SEXUAL HX HAD SEX IN THE LAST 12 MONTHS (VAGINAL, ORAL, OR ANAL)?YES WITHWOMEN ONLY USE PROTECTION?NO HAVE YOU EVER HAD AN STD?NO HIV / HEP-C SCREENING HIV TEST OFFERED TO PATIENT:YES DATE OFFERED:08/30/2016 TEST ACCEPTED:NO REASON:PATIENT DECLINED HEP-C TEST OFFERED TO PATIENT:YES DATE OFFERED:08/30/2016 TEST ACCEPTED:NO REASON:PATIENT DECLINED DIET: REGULAR. EXERCISE: NONE. MARITAL STATUS: . JAIN [id number] NONE LANGUAGE LANGUAGES SPOKEN:DIVEHI EDUCATION LEVEL OF EDUCATION:FINISHED HIGH SCHOOL LEARNING BARRIERS / SPECIAL NEEDS BARRIERS TO LEARNING?NO HEARING IMPAIRED?NO VISION IMPAIRED?YES :CORRECTIVE LENSES COGNITIVELY IMPAIRED?NO READINESS TO LEARN?YES LEARNING PREFERENCES?NO LEARNING CAPABILITIES PRESENT?YES EMOTIONAL BARRIERS?NO SPECIAL DEVICES?NO PROCEDURE TECH NEEDED?NO NEW PATIENT PAIN DIARY TODAY'S VISITNOTES FROM 0-10, WHAT LEVEL IS YOUR PAIN TODAY?0 PAIN CLINIC PFS, CLERGY, PUBLIC HEALTH REFERRALS PFS REFERRAL NEEDED?NO CLERGY REFERRAL NEEDED?NO PUBLIC HEALTH REFERRAL NEEDED?NO WAS THE PROVIDER NOTIFIED OF ANY PERTINENT INFO?NO HAS THE PATIENT BEEN EDUCATED REGARDING HIS/HER PLAN OF CARE?YES HAS THE PATIENT BEEN EDUCATED REGARDING PAIN, THE RISK FOR PAIN, THE IMPORTANCE OF EFFECTIVE PAIN MANAGEMENT, AND THE PAIN ASSESSMENT PROCESS?YES REVIEW OF SYSTEMS REVIEWED BY: PROVIDER: TOM JOLLY . CONSTITUTIONAL: ANY CHANGE IN YOUR MEDICAL CONDITION? NO . CHILLS NO . FEVER NO . INFECTION: DO YOU HAVE NEW INFECTIONS? NO . DO YOU HAVE HISTORY OF MRSA? NO . MUSCULOSKELETAL: ANY NEW PATTERNS OF PAIN OR NUMBNESS? NO . GASTROENTEROLOGY: ANY NEW CHANGE IN BOWEL CONTROL? NO . GENITOURINARY: ANY NEW CHANGE IN BLADDER CONTROL? NO . IS THERE A CHANCE YOU COULD BE ? NO . HEMATOLOGY/LYMPH: DO YOU TAKE ANY BLOOD THINNERS? (FOR EXAMPLE- COUMADIN, PLAVIX, AGGRENOX, PLATEL, PRADAXA, OR XARELTO) NO . WHEN WAS YOUR LAST DOSE? DATE: TIME: . NEUROLOGY: HAVE YOU FALLEN IN THE PAST 6 MONTHS? NO . ANY NEW EXTREMITY NUMBNESS OR WEAKNESS? NO . CARDIOLOGY: DO YOU HAVE A PACEMAKER OR DEFIBRILLATOR? NO . RESPIRATORY: HAVE YOU BEEN SICK IN THE PAST WEEK? YES . FEVER YES . FLU LIKE SYMPTOMS? NO . COUGH NO . INTEGUMENTARY: DO YOU HAVE ANY RASHES OR OPEN SORES? NO . ALLERGIC/IMMUNO: ARE YOU ALLERGIC TO SHELLFISH OR IV DYE? NO . ANY NEW ALLERGIES? NO . PSYCHIATRIC: DO YOU HAVE THOUGHTS OF HURTING YOURSELF OR SOMEONE ELSE? NO . ARE YOU ABUSED, NEGLECTED, OR IN AN UNSAFE ENVIRONMENT? NO . ENDOCRINOLOGY: ARE YOU DIABETIC? NO . OTHER: DO YOU NEED ANY PRESCRIPTIONS? NO . IF YES, PLEASE LIST: ____ . ANY NEW PROBLEMS WITH YOUR MEDICATIONS? NO . WHEN DID YOU LAST EAT? ____ . WHEN DID YOU LAST DRINK? ____ . WHAT DID YOU LAST DRINK? ____ . NAME OF PERSON DRIVING YOU HOME? ____ . DO YOU HAVE ANY OTHER QUESTIONS OR CONCERNS NO . VITAL SIGNS WT 166 LBS, HT 62 IN, BMI 30.36 INDEX, BP 129/79 MM HG, HR 71 /MIN, RR 18 /MIN, TEMP 98.4 F, OXYGEN SAT % 97%, NA INITIALS SC 09:00, REVIEWED BY: CS. EXAMINATION GENERAL EXAMINATION: PSYCHALERT , ORIENTED X 3 , APPROPRIATE MOOD AND AFFECT . LUNGS:CLEAR TO AUSCULTATION BILATERALLY, DECREASED AIR ENTRY AT BASES. HEART:HEART RATE REGULAR. MUSCULOSKELETAL: MINIMAL TENDERNESS AT BILATERAL OCCIPITAL.NOTCH REGION. OVER THE C7 PROMINENCE AND ALONG MID THORACIC SPINOUS PROCESSES. CAN BRING HEAD TO ALMOST FULL UPRIGHT POSITION TODAY. IMPROVED ROTATION OF NECK NOTED. APPLICATIONS TESTER STRENGTH EQUAL AND STRONG. 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 PROCEDURE CODES FA211 ESTABILISHED PATIENT [facility] CHARGE DISPOSITION & COMMUNICATION FOLLOW UP KEEP SCHED MED FOLLOWUP APPT (REASON: NECK/BACK PAIN) ELECTRONICALLY SIGNED BY ILIA REAGAN ON 01/05/2017 AT 04:48 PM EDT DISCLAIMER : THIS IS A VISIT SUMMARY EXTRACTED FROM THE [email or web address] CHART. IT IS NOT A COPY OF THE [email or web address] PROGRESS NOTE. JANEL
== END ==
LOC: M PAIN 08:50
PROVIDERS: ATTEND Nurse Practitioner Family
DX: M79.1 Myalgia (principal); M45.0 Ankylosing spondylitis of multiple sites in spine; D50.9 Iron deficiency anemia, unspecified; E55.9 Vitamin D deficiency, unspecified; Z79.891 Long term (current) use of opiate analgesic; Z79.899 Other long term (current) drug therapy; Z87.891 Personal history of nicotine dependence

== ENCOUNTER → 2017-01-06 | Outpatient (REF) | payer BC ==
[2017-01-06 12:58] LABS: BASO # 0.1 K/mm3 (0.0-0.2); BASO % 0.7 % (0.0-1.0); EOS # 0.3 K/mm3 (0.0-0.50); EOS % 2.7 % (0.0-3.0); LARGE UNSTAINED CELL # 0.1 K/mm3 (0.0-0.4); LARGE UNSTAINED CELL % 1.2 % (0.0-4.0); LYMPH # 2.6 K/mm3 (1.5-4.5); LYMPH % 21.8 % (24.0-44.0); MEAN CORPUSCULAR HGB CONC 35.4 g/dl (32.0-36.5); MEAN CORPUSCULAR VOLUME 90.3 fl (80.0-96.0); MONO # 0.5 K/mm3 (0.0-0.8); MONO % 4.8 % (0.0-5.0); NEUTROPHILS # 7.7 K/mm3 (1.8-7.7); NEUTROPHILS % 68.8 % (36.0-66.0); PLATELET COUNT, AUTOMATED 257 k/mm3 (150-450); RED CELL DISTRIBUTION WIDTH 13.4 % (11.5-14.5); WHITE BLOOD COUNT 11.2 K/mm3 (4.0-10.0)
[2017-01-06 13:40] LABS: ALBUMIN 3.8 GM/DL (3.2-5.2); ALBUMIN/GLOBULIN RATIO 1.09 (1.00-1.93); ALKALINE PHOSPHATASE 106 U/L (45-117); ALT/SGPT 43 U/L (12-78); ANION GAP 10 MEQ/L (8-16); AST/SGOT 13 U/L (15-37); BILIRUBIN,TOTAL 0.2 MG/DL (0.2-1.0); BLOOD UREA NITROGEN 15 MG/DL (7-18); CALCIUM LEVEL 8.3 MG/DL (8.5-10.1); CARBON DIOXIDE LEVEL 26 MEQ/L (21-32); CHLORIDE LEVEL 108 MEQ/L (98-107); CHOLESTEROL LEVEL 195 MG/DL (<200); CREATININE FOR GFR 0.97 MG/DL (0.70-1.30); FERRITIN 198 NG/ML (26-388); GLOMERULAR FILTRATION RATE > 60.0 (>60); GLUCOSE, FASTING 194 MG/DL (70-105); PERCENT SATURATION 19.9 % (19.7-50.0); POTASSIUM SERUM 3.8 MEQ/L (3.5-5.1); SODIUM LEVEL 144 MEQ/L (136-145); TOTAL IRON BINDING CAPACITY 251 UG/DL (250-450); TOTAL PROTEIN 7.3 GM/DL (6.4-8.2); TRIGLYCERIDES LEVEL 246 MG/DL (<150)
== END ==
LOC: M SFHCADAM 10:02
PROVIDERS: ATTEND Physician Assistant Medical
DX: D50.9 Iron deficiency anemia, unspecified (principal); E55.9 Vitamin D deficiency, unspecified; K21.9 Gastro-esophageal reflux disease without esophagitis

== ENCOUNTER → 2017-01-10 | Outpatient (CLI) | payer BC ==
--- NOTE | 2017-01-10 16:59 | REP ---
Chest two views HISTORY: Hemoptysis Comparison: 08/09/2015 The lungs are clear. The heart is normal in size. The pulmonary vasculature is normal in appearance. The bony structure is intact. IMPRESSION: No acute disease. Signed by Emre Bruce MD 01/10/2017 04:48 P
== END ==
LOC: M ADAMS 16:34
PROVIDERS: ATTEND Physician Assistant Medical
DX: R04.2 Hemoptysis (principal)

== ENCOUNTER → 2017-01-26 | Outpatient (CLI) | payer BC ==
--- NOTE | 2017-02-12 00:29 | ECWPNPC ---
PATIENT NAME: JOSUE MARTINEZ : 1975 GENDER: MALE VISIT DATE: 01/26/2017 DISCHARGE DATE: 01/26/17 1029 VISIT LOCKED DATE TIME: PHYSICIAN: TOM SALINAS RESOURCE: TOM SALINAS REASON FOR APPOINTMENT 1. POST FACET BLOCK/ MEDS HISTORY OF PRESENT ILLNESS HISTORY OF PRESENT ILLNESS: PAIN THE PATIENT DESCRIBES THE PAIN... FALL RISK SCREENING: SCREENING :NO FALLS IN THE PAST YEAR TODAY'S VISIT: NOTES: RATES PAIN TODAY 4/10. DESCRIBES PAIN CONSTANT, ACHING, TENDER, THROBBING, SORE AND SHOOTING. NOTES PAIN CENTERED AT NECK LEFT SIDE AND LOW BACK LEFT SIDE. IS S/P LEFT TF EPIDURAL 01/04/17 PAIN LEVEL 7/10 PRIOR TO PROCEDURE. WAS AT 0/10 FOR THE FIRST 24 HRS AND THEN DID INCREASE TO MAX2-3//10 FOR THE NEXT 3 WEEKS.NEW PATTERN OF PAIN IN LEFT LOW BACK MUSCLE AND THIS IS EFFECTING SLEEP. THINKS THIS IS BECAUSE WAS NOT ABLE TO TAKE REMICADE INFUSION SECONDARY TO A FEVER. CHANGE TO MORPHINE HAS BEEN HELPFUL. NO MAJOR ISSUES WITH CONSTIPTION OR OTHER ADVERSE EFFECTS.. CURRENT MEDICATIONS TAKING MENS MULTIVITAMIN PLUS TABLET 1 TAB ORALLY DAILY TAKING VOLTAREN 1 % GEL 1 TAB(S) EXTERNALLY DAILY, NEEDED TAKING REMICADE 100 MG SOLUTION RECONSTITUTED INTRAVENOUS EVERY 8 WEEKS TAKING AIRBORNE TABLET EFFERVESCENT ORALLY ONCE DAILY TAKING DEXILANT 60 MG CAPSULE DELAYED RELEASE 1 CAPSULE ORALLY ONCE A DAY TAKING FERROUS SULFATE 325 (65 FE) MG TABLET 1 TABLET ORALLY ONCE A DAY TAKING MIRALAX - PACKET 1 PACKET MIXED WITH 8 OUNCES OF FLUID ORALLY TWICE DAILY NEEDED TAKING ZANTAC 300 MG TABLET 1 TABLET AT BEDTIME ORALLY ONCE A DAY TAKING COLACE 100 MG CAPSULE 1 CAPSULE NEEDED ORALLY TWICE A DAY TAKING DRISDOL 06077 UNIT CAPSULE 1 CAPSULE ORALLY WEEKLY TAKING MORPHINE SULFATE 15 MG TABLET 1 -2 TABLET NEEDED ORALLY EVERY 6 HRS PRN PAIN MDD=5 TAKING QUETIAPINE FUMARATE 200 MG TABLET 1 TABLET BEFORE BEDTIME ORALLY 30 DAY(S) TAKING PROZAC 20 MG CAPSULE 3 CAPSULE IN THE MORNING ONCE A DAY ORALLY 30 DAY(S) NOT-TAKING OPANA ER 20 MG TABLET ER 12 HOUR ABUSE-DETERRENT 1 TABLET 1 HOUR BEFORE OR 2 HOURS AFTER EATING ORALLY EVERY 12 HRS CHRONIC PAIN MDD=2 CHRONIC PAIN NOT-TAKING QUETIAPINE FUMARATE 100 MG TABLET 1 1/2 TABLET BEFORE BEDTIME ORALLY 30 DAY(S) NOT-TAKING BENADRYL ALLERGY 25 MG TABLET 1 TABLET ORALLY EVERY 6 HRS NEEDED, NOTES: NONE NOT-TAKING CAPSAICIN 0.1 % CREAM 1 APPLICATION TO AFFECTED AREA NEEDED EXTERNALLY THREE TIMES A DAY MEDICATION LIST REVIEWED AND RECONCILED WITH THE PATIENT PAST MEDICAL HISTORY CHRONIC LOW BACK PAIN (INJURED AT WORK) - SUMMER 2009 GERD, 03/05 EGD IRREG Z LINE, REINDL VIT D DEF FE DEF ANEMIA FORMER SMOKER, QUIT 01/02, SMOKED 18 Y, 1/2 PPD ANKYLOSING SPONDYLITIS - DR SOUZA DX 03/05 02/03 CT CHEST 8.5 MM CAVITARY LESION(LIKELY ABSCESS) 04/05 - PER PULM NO FURTHER IMAGING REQUIRED ALLERGIES N.K.D.A. SOCIAL HISTORY GENERAL: TOBACCO USE ARE YOU A:NONSMOKER LUNG CANCER SCREENING SMOKING STATUS:NON SMOKER BMI CARE GOAL FOLLOW-UP ABOVE NORMAL BMI FOLLOW-UPDIETARY MANAGEMENT EDUCATION, GUIDANCE, AND COUNSELING ALCOHOL SCREENING DID YOU HAVE A DRINK CONTAINING ALCOHOL IN THE PAST YEAR?YES HOW OFTEN DID YOU HAVE SIX OR MORE DRINKS ON ONE OCCASION IN THE PAST YEAR?NEVER (0 POINTS) HOW MANY DRINKS DID YOU HAVE ON A TYPICAL DAY WHEN YOU WERE DRINKING IN THE PAST YEAR?1 OR 2 (0 POINTS) HOW OFTEN DID YOU HAVE A DRINK CONTAINING ALCOHOL IN THE PAST YEAR?MONTHLY OR LESS (1 POINT) POINTS1 INTERPRETATIONNEGATIVE RECREATIONAL DRUG USE DRUG USE?NO CAFFEINE CAFFEINE USE?YES SEXUAL HX HAD SEX IN THE LAST 12 MONTHS (VAGINAL, ORAL, OR ANAL)?YES WITHWOMEN ONLY USE PROTECTION?NO HAVE YOU EVER HAD AN STD?NO HIV / HEP-C SCREENING HIV TEST OFFERED TO PATIENT:YES DATE OFFERED:08/30/2016 TEST ACCEPTED:NO HEP-C TEST OFFERED TO PATIENT:YES DATE OFFERED:08/30/2016 REASON:PATIENT DECLINED TEST ACCEPTED:NO REASON:PATIENT DECLINED DIET: REGULAR. EXERCISE: NONE. MARITAL STATUS: . 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 CONSTITUTIONAL: ANY CHANGE IN YOUR MEDICAL CONDITION? NO . CHILLS NO . FEVER NO . INFECTION: DO YOU HAVE NEW INFECTIONS? NO . DO YOU HAVE HISTORY OF MRSA? NO . MUSCULOSKELETAL: ANY NEW PATTERNS OF PAIN OR NUMBNESS? NO . GASTROENTEROLOGY: ANY NEW CHANGE IN BOWEL CONTROL? NO . GENITOURINARY: ANY NEW CHANGE IN BLADDER CONTROL? NO . IS THERE A CHANCE YOU COULD BE ? NO . HEMATOLOGY/LYMPH: DO YOU TAKE ANY BLOOD THINNERS? (FOR EXAMPLE- COUMADIN, PLAVIX, AGGRENOX, PLATEL, PRADAXA, OR XARELTO) NO . WHEN WAS YOUR LAST DOSE? DATE: TIME: . NEUROLOGY: HAVE YOU FALLEN IN THE PAST 6 MONTHS? NO . ANY NEW EXTREMITY NUMBNESS OR WEAKNESS? NO . CARDIOLOGY: DO YOU HAVE A PACEMAKER OR DEFIBRILLATOR? NO . RESPIRATORY: HAVE YOU BEEN SICK IN THE PAST WEEK? NO . FEVER NO . FLU LIKE SYMPTOMS? NO . COUGH NO . INTEGUMENTARY: DO YOU HAVE ANY RASHES OR OPEN SORES? NO . ALLERGIC/IMMUNO: ARE YOU ALLERGIC TO SHELLFISH OR IV DYE? NO . ANY NEW ALLERGIES? NO . PSYCHIATRIC: DO YOU HAVE THOUGHTS OF HURTING YOURSELF OR SOMEONE ELSE? NO . ARE YOU ABUSED, NEGLECTED, OR IN AN UNSAFE ENVIRONMENT? NO . ENDOCRINOLOGY: ARE YOU DIABETIC? NO . OTHER: DO YOU NEED ANY PRESCRIPTIONS? NO . IF YES, PLEASE LIST: ____ . ANY NEW PROBLEMS WITH YOUR MEDICATIONS? NO . WHEN DID YOU LAST EAT? ____ . WHEN DID YOU LAST DRINK? ____ . WHAT DID YOU LAST DRINK? ____ . NAME OF PERSON DRIVING YOU HOME? ____ . DO YOU HAVE ANY OTHER QUESTIONS OR CONCERNS NO . VITAL SIGNS WT 176 LBS, HT 62 IN, BMI 32.19 INDEX, BP 126/78 MM HG, HR 67 /MIN, RR 18 /MIN, TEMP 97.6 F, OXYGEN SAT % 96%, NA INITIALS [id number], REVIEWED BY: JONATHAN. EXAMINATION GENERAL EXAMINATION: GENERAL APPEARANCE:NO ACUTE DISTRESS, WELL NOURISHED AND HYDRATED, PLEASANT. HEENT:THROAT: PATENT, PINK & MOIST, WITHOUT ERYTHEMA OR EXUDATE. LUNGS:CLEAR TO AUSCULTATION BILATERALLY, NO WHEEZES, RHONCHI, RALES. HEART:NO MURMURS, REGULAR RATE AND RHYTHM. MUSCULOSKELETAL:MUSCLE STRENGTH TESTING 5/5 BILATERAL, TRIGGER POINTS AND TIGHT FIBEROUS BANDS OVER LEFT CERVICAL PARASPINOUS MUSCLES AND OVER LEFT LUMBAR PARASPINOUS MUSCLES AND THE SACRUM. HEAD IN HEAD FORWARD POSITION.. 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 CALL WHEN SCRIPTS DUE. CLINICAL NOTES: ISTOP REGISTRY REVIEWED AND DEMNOSTRATES COMPLLIANCE (#[id number]). BRINGS IN MEDICATIONS WHICH IS APPROPRIATE FOR WHAT WAS DISPENSED. RECENT URINE TOXICOLOGY REVIEWED. NO UNAUTHORIZED MEDICATIONS. NO ILLICIT SUBSTANCES AND PRESCRIBED MEDICATIONS WERE PRESENT. PROCEDURE CODES FA211 ESTABILISHED PATIENT [facility] CHARGE DISPOSITION & COMMUNICATION FOLLOW UP 6 WEEKS (REASON: NECK/BACK PAIN) ELECTRONICALLY SIGNED BY ILIA REAGAN ON 02/11/2017 AT 03:06 PM EDT DISCLAIMER : THIS IS A VISIT SUMMARY EXTRACTED FROM THE [employer] CHART. IT IS NOT A COPY OF THE [employer] PROGRESS NOTE. JANEL
== END ==
LOC: M PAIN 09:30
PROVIDERS: ATTEND Nurse Practitioner Family
DX: M79.1 Myalgia (principal); M45.0 Ankylosing spondylitis of multiple sites in spine; D50.9 Iron deficiency anemia, unspecified; K21.9 Gastro-esophageal reflux disease without esophagitis; E55.9 Vitamin D deficiency, unspecified; Z79.891 Long term (current) use of opiate analgesic; Z79.899 Other long term (current) drug therapy

== ENCOUNTER → 2017-03-01 | Outpatient (CLI) | payer BC ==
--- NOTE | 2017-04-10 00:54 | ECWPNPC ---
PATIENT NAME: JOSUE MARTINEZ : 1975 GENDER: MALE VISIT DATE: 03/01/2017 DISCHARGE DATE: 03/01/17 1010 VISIT LOCKED DATE TIME: PHYSICIAN: TOM SALINAS RESOURCE: TOM SALINAS REASON FOR APPOINTMENT 1. NECK AND BACK HISTORY OF PRESENT ILLNESS HISTORY OF PRESENT ILLNESS: PAIN THE PATIENT DESCRIBES THE PAIN... FALL RISK SCREENING: SCREENING :NO FALLS IN THE PAST YEAR TODAY'S VISIT: NOTES: RATES PAIN LEVEL TODAY 5/10. DESCRIBES PAIN CONSTANT, ACHING, BURNING, SHARP AND STABBING SORE AND SHOOTING. PAIN IS CENTERED AT NECK AND UPPER BACK AND ACROSS THE LOW BACK LEFT SIDE. IS HAVING NEW PAIN LEFT HIP AREA AND IS WORSE WHEN STEPING OR WHEN ELEVATING LEFT LEG IN BED. . CURRENT MEDICATIONS TAKING MENS MULTIVITAMIN PLUS TABLET 1 TAB ORALLY DAILY TAKING VOLTAREN 1 % GEL 1 TAB(S) EXTERNALLY DAILY, NEEDED TAKING REMICADE 100 MG SOLUTION RECONSTITUTED INTRAVENOUS EVERY 8 WEEKS TAKING AIRBORNE TABLET EFFERVESCENT ORALLY ONCE DAILY TAKING DEXILANT 60 MG CAPSULE DELAYED RELEASE 1 CAPSULE ORALLY ONCE A DAY TAKING FERROUS SULFATE 325 (65 FE) MG TABLET 1 TABLET ORALLY ONCE A DAY TAKING MIRALAX - PACKET 1 PACKET MIXED WITH 8 OUNCES OF FLUID ORALLY TWICE DAILY NEEDED TAKING ZANTAC 300 MG TABLET 1 TABLET AT BEDTIME ORALLY ONCE A DAY TAKING COLACE 100 MG CAPSULE 1 CAPSULE NEEDED ORALLY TWICE A DAY TAKING DRISDOL 62513 UNIT CAPSULE 1 CAPSULE ORALLY WEEKLY TAKING QUETIAPINE FUMARATE 200 MG TABLET 1 TABLET BEFORE BEDTIME ORALLY 30 DAY(S) TAKING PROZAC 20 MG CAPSULE 3 CAPSULE S ORALLY ONCE A DAY TAKING MORPHINE SULFATE 15 MG TABLET 1 -2 TABLET NEEDED ORALLY EVERY 6 HRS PRN PAIN MDD=5 NOT-TAKING CAPSAICIN 0.1 % CREAM 1 APPLICATION TO AFFECTED AREA NEEDED EXTERNALLY THREE TIMES A DAY DISCONTINUED VITAMIN D (ERGOCALCIFEROL) 61913 CAPSULE TAKE ONE CAPSULE BY MOUTH WEEKLY DISCONTINUED OPANA ER 20 MG TABLET ER 12 HOUR ABUSE-DETERRENT 1 TABLET 1 HOUR BEFORE OR 2 HOURS AFTER EATING ORALLY EVERY 12 HRS CHRONIC PAIN MDD=2 CHRONIC PAIN DISCONTINUED QUETIAPINE FUMARATE 100 MG TABLET 1 1/2 TABLET BEFORE BEDTIME ORALLY 30 DAY(S) UNKNOWN BENADRYL ALLERGY 25 MG TABLET 1 TABLET ORALLY EVERY 6 HRS NEEDED, NOTES: NONE MEDICATION LIST REVIEWED AND RECONCILED WITH THE PATIENT PAST MEDICAL HISTORY CHRONIC LOW BACK PAIN (INJURED AT WORK) - SUMMER 2009 GERD, 03/05 EGD IRREG Z LINE, REINDL VIT D DEF FE DEF ANEMIA FORMER SMOKER, QUIT 01/02, SMOKED 18 Y, 1/2 PPD ANKYLOSING SPONDYLITIS - DR SOUZA DX 03/05 02/03 CT CHEST 8.5 MM CAVITARY LESION(LIKELY ABSCESS) 04/05 - PER PULM NO FURTHER IMAGING REQUIRED ALLERGIES N.K.D.A. SOCIAL HISTORY GENERAL: TOBACCO USE ARE YOU A:NONSMOKER LUNG CANCER SCREENING SMOKING STATUS:NON SMOKER BMI CARE GOAL FOLLOW-UP ABOVE NORMAL BMI FOLLOW-UPDIETARY MANAGEMENT EDUCATION, GUIDANCE, AND COUNSELING ALCOHOL SCREENING DID YOU HAVE A DRINK CONTAINING ALCOHOL IN THE PAST YEAR?YES HOW OFTEN DID YOU HAVE SIX OR MORE DRINKS ON ONE OCCASION IN THE PAST YEAR?NEVER (0 POINTS) HOW MANY DRINKS DID YOU HAVE ON A TYPICAL DAY WHEN YOU WERE DRINKING IN THE PAST YEAR?1 OR 2 (0 POINTS) HOW OFTEN DID YOU HAVE A DRINK CONTAINING ALCOHOL IN THE PAST YEAR?MONTHLY OR LESS (1 POINT) POINTS1 INTERPRETATIONNEGATIVE RECREATIONAL DRUG USE DRUG USE?NO CAFFEINE CAFFEINE USE?YES SEXUAL HX HAD SEX IN THE LAST 12 MONTHS (VAGINAL, ORAL, OR ANAL)?YES WITHWOMEN ONLY USE PROTECTION?NO HAVE YOU EVER HAD AN STD?NO HIV / HEP-C SCREENING HIV TEST OFFERED TO PATIENT:YES DATE OFFERED:08/30/2016 TEST ACCEPTED:NO HEP-C TEST OFFERED TO PATIENT:YES DATE OFFERED:08/30/2016 REASON:PATIENT DECLINED TEST ACCEPTED:NO REASON:PATIENT DECLINED DIET: REGULAR. EXERCISE: NONE. MARITAL STATUS: . CAODAISM [id number] NONE LANGUAGE LANGUAGES SPOKEN:YI EDUCATION LEVEL OF EDUCATION:FINISHED HIGH SCHOOL LEARNING BARRIERS / SPECIAL NEEDS CHANGE FROM LAST VISIT?NO BARRIERS TO LEARNING?NO HEARING IMPAIRED?NO VISION IMPAIRED?YES :CORRECTIVE LENSES COGNITIVELY IMPAIRED?NO READINESS TO LEARN?YES LEARNING PREFERENCES?NO LEARNING CAPABILITIES PRESENT?YES EMOTIONAL BARRIERS?NO SPECIAL DEVICES?NO STUDENT ACCOUNTS MANAGER NEEDED?NO NEW PATIENT PAIN DIARY TODAY'S VISITNOTES FROM 0-10, WHAT LEVEL IS YOUR PAIN TODAY?0 PAIN CLINIC PFS, CLERGY, PUBLIC HEALTH REFERRALS PFS REFERRAL NEEDED?NO CLERGY REFERRAL NEEDED?NO PUBLIC HEALTH REFERRAL NEEDED?NO WAS THE PROVIDER NOTIFIED OF ANY PERTINENT INFO?NO HAS THE PATIENT BEEN EDUCATED REGARDING HIS/HER PLAN OF CARE?YES HAS THE PATIENT BEEN EDUCATED REGARDING PAIN, THE RISK FOR PAIN, THE IMPORTANCE OF EFFECTIVE PAIN MANAGEMENT, AND THE PAIN ASSESSMENT PROCESS?YES REVIEW OF SYSTEMS REVIEWED BY: PROVIDER: TOM JOLLY . CONSTITUTIONAL: ANY CHANGE IN YOUR MEDICAL CONDITION? NO . CHILLS NO . FEVER NO . INFECTION: DO YOU HAVE NEW INFECTIONS? NO . DO YOU HAVE HISTORY OF MRSA? NO . MUSCULOSKELETAL: ANY NEW PATTERNS OF PAIN OR NUMBNESS? NO . GASTROENTEROLOGY: ANY NEW CHANGE IN BOWEL CONTROL? NO . GENITOURINARY: ANY NEW CHANGE IN BLADDER CONTROL? NO . IS THERE A CHANCE YOU COULD BE ? NO . HEMATOLOGY/LYMPH: DO YOU TAKE ANY BLOOD THINNERS? (FOR EXAMPLE- COUMADIN, PLAVIX, AGGRENOX, PLATEL, PRADAXA, OR XARELTO) NO . WHEN WAS YOUR LAST DOSE? DATE: TIME: . NEUROLOGY: HAVE YOU FALLEN IN THE PAST 6 MONTHS? NO . ANY NEW EXTREMITY NUMBNESS OR WEAKNESS? NO . CARDIOLOGY: DO YOU HAVE A PACEMAKER OR DEFIBRILLATOR? NO . RESPIRATORY: HAVE YOU BEEN SICK IN THE PAST WEEK? YES, HAD A COLD . FEVER NO . FLU LIKE SYMPTOMS? NO . COUGH YES . INTEGUMENTARY: DO YOU HAVE ANY RASHES OR OPEN SORES? NO . ALLERGIC/IMMUNO: ARE YOU ALLERGIC TO SHELLFISH OR IV DYE? NO . ANY NEW ALLERGIES? NO . PSYCHIATRIC: DO YOU HAVE THOUGHTS OF HURTING YOURSELF OR SOMEONE ELSE? NO . ARE YOU ABUSED, NEGLECTED, OR IN AN UNSAFE ENVIRONMENT? NO . ENDOCRINOLOGY: ARE YOU DIABETIC? NO . OTHER: DO YOU NEED ANY PRESCRIPTIONS? NO . IF YES, PLEASE LIST: ____ . ANY NEW PROBLEMS WITH YOUR MEDICATIONS? NO . WHEN DID YOU LAST EAT? ____ . WHEN DID YOU LAST DRINK? ____ . WHAT DID YOU LAST DRINK? ____ . NAME OF PERSON DRIVING YOU HOME? ____ . DO YOU HAVE ANY OTHER QUESTIONS OR CONCERNS NO . VITAL SIGNS WT 170 LBS, HT 62 IN, BMI 31.09 INDEX, BP 118/72 MM HG, HR 90 /MIN, RR 18 /MIN, TEMP 98.1 F, OXYGEN SAT % 96%, NA INITIALS SC 09:41, REVIEWED BY: CARINA. EXAMINATION GENERAL EXAMINATION: LUNGS:CLEAR TO AUSCULTATION BILATERALLY, NO WHEEZES, RHONCHI, RALES. HEART:NO MURMURS, REGULAR RATE AND RHYTHM. MUSCULOSKELETAL:MUSCLE STRENGTH TESTING 5/5 BILATERAL, TRIGGER POINTS AND TIGHT FIBEROUS BANDS OVER LEFT CERVICAL PARASPINOUS MUSCLES AND OVER LEFT LUMBAR PARASPINOUS MUSCLES AND THE SACRUM. HEAD IN HEAD FORWARD POSITION.. 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 USE MAX OF 5 MORPHINE TABS/DAY FOR PAIN. CLINICAL NOTES: ISTOP REGISTRY REVIEWED AND DEMNOSTRATES COMPLLIANCE. (REF # [id number]) BRINGS IN MEDICATIONS WHICH IS APPROPRIATE FOR WHAT WAS DISPENSED. RECENT URINE TOXICOLOGY REVIEWED. NO UNAUTHORIZED MEDICATIONS. NO ILLICIT SUBSTANCES AND PRESCRIBED MEDICATIONS WERE PRESENT. PROCEDURE CODES FA211 ESTABILISHED PATIENT [facility] FACILITY CHARGE DISPOSITION & COMMUNICATION FOLLOW UP 1 MONTH (REASON: HIP PAIN- CHECK AUTH FOR MRI OF LEFT HIP) ELECTRONICALLY SIGNED BY ILIA REAGAN ON 04/09/2017 AT 07:41 PM EST DISCLAIMER : THIS IS A VISIT SUMMARY EXTRACTED FROM THE [employer] CHART. IT IS NOT A COPY OF THE [employer] PROGRESS NOTE. JANEL
== END ==
LOC: M PAIN 09:30
PROVIDERS: ATTEND Nurse Practitioner Family
DX: M79.1 Myalgia (principal); M45.0 Ankylosing spondylitis of multiple sites in spine; Z79.891 Long term (current) use of opiate analgesic; M70.62 Trochanteric bursitis, left hip; G89.29 Other chronic pain; K21.9 Gastro-esophageal reflux disease without esophagitis; E55.9 Vitamin D deficiency, unspecified; D50.9 Iron deficiency anemia, unspecified; Z79.899 Other long term (current) drug therapy

== ENCOUNTER → 2017-04-19 | Outpatient (CLI) | payer BC ==
[2017-04-19 19:29] LABS: BASO # 0.1 10^3/uL (0.0-0.2); BASO % 0.8 % (0.0-1.0); EOS # 0.5 10^3/uL (0.0-0.50); EOS % 4.5 % (0.0-3.0); IMMATURE GRANULOCYTE % 0.8 % (0-0); LYMPH # 3.2 10^3/uL (1.5-4.5); MEAN CORPUSCULAR HEMOGLOBIN 30.1 pg (27.0-33.0); MEAN CORPUSCULAR HGB CONC 33.5 g/dl (32.0-36.5); MEAN CORPUSCULAR VOLUME 89.7 fl (80.0-96.0); MONO # 1.2 10^3/uL (0.0-0.8); NEUTROPHILS # 5.9 10^3/uL (1.8-7.7); NEUTROPHILS % 53.9 % (36.0-66.0); PLATELET COUNT, AUTOMATED 349 10^3/uL (150-450); RED CELL DISTRIBUTION WIDTH 13.1 % (11.5-14.5); WHITE BLOOD COUNT 10.9 10^3/uL (4.0-10.0)
[2017-04-19 19:54] LABS: ALBUMIN 3.5 GM/DL (3.2-5.2); ALBUMIN/GLOBULIN RATIO 0.97 (1.00-1.93); ALKALINE PHOSPHATASE 112 U/L (45-117); ALT/SGPT 52 U/L (12-78); ANION GAP 8 MEQ/L (8-16); AST/SGOT 32 U/L (7-37); BILIRUBIN,TOTAL 0.4 MG/DL (0.2-1.0); BLOOD UREA NITROGEN 13 MG/DL (7-18); CALCIUM LEVEL 8.3 MG/DL (8.5-10.1); CARBON DIOXIDE LEVEL 30 MEQ/L (21-32); CHLORIDE LEVEL 103 MEQ/L (98-107); CREATININE FOR GFR 0.87 MG/DL (0.70-1.30); GLOMERULAR FILTRATION RATE > 60.0 (>60); GLUCOSE, FASTING 125 MG/DL (70-105); POTASSIUM SERUM 3.7 MEQ/L (3.5-5.1); SODIUM LEVEL 141 MEQ/L (136-145); TOTAL PROTEIN 7.1 GM/DL (6.4-8.2)
== END ==
LOC: M WUC 11:19
PROVIDERS: ATTEND Internal Medicine Rheumatology
DX: M45.0 Ankylosing spondylitis of multiple sites in spine (principal); Z79.899 Other long term (current) drug therapy

== ENCOUNTER → 2017-04-19 | Outpatient (CLI) | payer BC ==
--- NOTE | 2017-05-11 01:08 | ECWPNPC ---
PATIENT NAME: JOSUE MARTINEZ : 1975 GENDER: MALE VISIT DATE: 04/19/2017 DISCHARGE DATE: 04/19/17 1021 VISIT LOCKED DATE TIME: PHYSICIAN: TOM SALINAS RESOURCE: TOM SALINAS REASON FOR APPOINTMENT 1. HIP PAIN HISTORY OF PRESENT ILLNESS HISTORY OF PRESENT ILLNESS: PAIN THE PATIENT DESCRIBES THE PAIN... FALL RISK SCREENING: SCREENING :NO FALLS IN THE PAST YEAR TODAY'S VISIT: NOTES: RATES PAIN TODAY 10/29. IS STILL HAVING LEFT HIP PAIN.MRI HAS BEEN DENIED FOR THISIS HAVING TIGHTNESS WITH RADIATION TO RIGHT HAND AND KNOTS IN LOW BACK WOULD LIKE TRIGGER POINTS TO THIS AREA. NECK IS THE WORST. REMAINS ON REMICADE.. CURRENT MEDICATIONS TAKING MENS MULTIVITAMIN PLUS TABLET 1 TAB ORALLY DAILY TAKING VOLTAREN 1 % GEL 1 TAB(S) EXTERNALLY DAILY, NEEDED TAKING REMICADE 100 MG SOLUTION RECONSTITUTED INTRAVENOUS EVERY 8 WEEKS TAKING AIRBORNE TABLET EFFERVESCENT ORALLY ONCE DAILY TAKING DEXILANT 60 MG CAPSULE DELAYED RELEASE 1 CAPSULE ORALLY ONCE A DAY TAKING FERROUS SULFATE 325 (65 FE) MG TABLET 1 TABLET ORALLY ONCE A DAY TAKING MIRALAX - PACKET 1 PACKET MIXED WITH 8 OUNCES OF FLUID ORALLY TWICE DAILY NEEDED TAKING ZANTAC 300 MG TABLET 1 TABLET AT BEDTIME ORALLY ONCE A DAY TAKING COLACE 100 MG CAPSULE 1 CAPSULE NEEDED ORALLY TWICE A DAY TAKING DRISDOL 99946 UNIT CAPSULE 1 CAPSULE ORALLY WEEKLY TAKING QUETIAPINE FUMARATE 200 MG TABLET 1 TABLET BEFORE BEDTIME ORALLY 30 DAY(S) TAKING PROZAC 20 MG CAPSULE 3 CAPSULE S ORALLY ONCE A DAY TAKING CLARITIN 10 MG TABLET 1 TABLET ORALLY ONCE A DAY TAKING MORPHINE SULFATE 15 MG TABLET 1 -2 TABLET NEEDED ORALLY EVERY 6 HRS PRN PAIN MDD=5 UNKNOWN BENADRYL ALLERGY 25 MG TABLET 1 TABLET ORALLY EVERY 6 HRS NEEDED, NOTES: NONE UNKNOWN CAPSAICIN 0.1 % CREAM 1 APPLICATION TO AFFECTED AREA NEEDED EXTERNALLY THREE TIMES A DAY MEDICATION LIST REVIEWED AND RECONCILED WITH THE PATIENT PAST MEDICAL HISTORY CHRONIC LOW BACK PAIN (INJURED AT WORK) - SUMMER 2009 GERD, 03/05 EGD IRREG Z LINE, REINDL VIT D DEF FE DEF ANEMIA FORMER SMOKER, QUIT 01/02, SMOKED 16 Y, 1/2 PPD ANKYLOSING SPONDYLITIS - DR SOUZA DX 03/05 02/03 CT CHEST 8.5 MM CAVITARY LESION(LIKELY ABSCESS) 04/05 - PER PULM NO FURTHER IMAGING REQUIRED ALLERGIES N.K.D.A. SOCIAL HISTORY GENERAL: TOBACCO USE ARE YOU A:NONSMOKER LUNG CANCER SCREENING SMOKING STATUS:NON SMOKER BMI CARE GOAL FOLLOW-UP ABOVE NORMAL BMI FOLLOW-UPDIETARY MANAGEMENT EDUCATION, GUIDANCE, AND COUNSELING ALCOHOL SCREENING DID YOU HAVE A DRINK CONTAINING ALCOHOL IN THE PAST YEAR?YES HOW OFTEN DID YOU HAVE SIX OR MORE DRINKS ON ONE OCCASION IN THE PAST YEAR?NEVER (0 POINTS) HOW MANY DRINKS DID YOU HAVE ON A TYPICAL DAY WHEN YOU WERE DRINKING IN THE PAST YEAR?1 OR 2 (0 POINTS) HOW OFTEN DID YOU HAVE A DRINK CONTAINING ALCOHOL IN THE PAST YEAR?MONTHLY OR LESS (1 POINT) POINTS1 INTERPRETATIONNEGATIVE RECREATIONAL DRUG USE DRUG USE?NO CAFFEINE CAFFEINE USE?YES SEXUAL HX HAD SEX IN THE LAST 12 MONTHS (VAGINAL, ORAL, OR ANAL)?YES WITHWOMEN ONLY USE PROTECTION?NO HAVE YOU EVER HAD AN STD?NO HIV / HEP-C SCREENING HIV TEST OFFERED TO PATIENT:YES DATE OFFERED:08/30/2016 TEST ACCEPTED:NO HEP-C TEST OFFERED TO PATIENT:YES DATE OFFERED:08/30/2016 REASON:PATIENT DECLINED TEST ACCEPTED:NO REASON:PATIENT DECLINED DIET: REGULAR. EXERCISE: NONE. MARITAL STATUS: . CAODAISM [id number] NONE LANGUAGE LANGUAGES SPOKEN:SYRI[place] EDUCATION LEVEL OF EDUCATION:FINISHED HIGH SCHOOL LEARNING BARRIERS / SPECIAL NEEDS CHANGE FROM LAST VISIT?NO BARRIERS TO LEARNING?NO HEARING IMPAIRED?NO VISION IMPAIRED?YES :CORRECTIVE LENSES COGNITIVELY IMPAIRED?NO READINESS TO LEARN?YES LEARNING PREFERENCES?NO LEARNING CAPABILITIES PRESENT?YES EMOTIONAL BARRIERS?NO SPECIAL DEVICES?NO CREDIT RISK SPECIALIST NEEDED?NO NEW PATIENT PAIN DIARY TODAY'S VISITNOTES FROM 0-10, WHAT LEVEL IS YOUR PAIN TODAY?0 PAIN CLINIC PFS, CLERGY, PUBLIC HEALTH REFERRALS PFS REFERRAL NEEDED?NO CLERGY REFERRAL NEEDED?NO PUBLIC HEALTH REFERRAL NEEDED?NO WAS THE PROVIDER NOTIFIED OF ANY PERTINENT INFO?NO HAS THE PATIENT BEEN EDUCATED REGARDING HIS/HER PLAN OF CARE?YES HAS THE PATIENT BEEN EDUCATED REGARDING PAIN, THE RISK FOR PAIN, THE IMPORTANCE OF EFFECTIVE PAIN MANAGEMENT, AND THE PAIN ASSESSMENT PROCESS?YES REVIEW OF SYSTEMS REVIEWED BY: PROVIDER: . CONSTITUTIONAL: ANY CHANGE IN YOUR MEDICAL CONDITION? NO . CHILLS NO . FEVER NO . INFECTION: DO YOU HAVE NEW INFECTIONS? NO . DO YOU HAVE HISTORY OF MRSA? NO . MUSCULOSKELETAL: ANY NEW PATTERNS OF PAIN OR NUMBNESS? LEFT HIP PAIN IS WORSE . GASTROENTEROLOGY: ANY NEW CHANGE IN BOWEL CONTROL? NO . GENITOURINARY: ANY NEW CHANGE IN BLADDER CONTROL? NO . IS THERE A CHANCE YOU COULD BE ? NO . HEMATOLOGY/LYMPH: DO YOU TAKE ANY BLOOD THINNERS? (FOR EXAMPLE- COUMADIN, PLAVIX, AGGRENOX, PLATEL, PRADAXA, OR XARELTO) NO . WHEN WAS YOUR LAST DOSE? DATE: TIME: . NEUROLOGY: HAVE YOU FALLEN IN THE PAST 6 MONTHS? NO . ANY NEW EXTREMITY NUMBNESS OR WEAKNESS? NO . CARDIOLOGY: DO YOU HAVE A PACEMAKER OR DEFIBRILLATOR? NO . RESPIRATORY: HAVE YOU BEEN SICK IN THE PAST WEEK? NO . FEVER NO . FLU LIKE SYMPTOMS? NO . COUGH NO . INTEGUMENTARY: DO YOU HAVE ANY RASHES OR OPEN SORES? NO . ALLERGIC/IMMUNO: ARE YOU ALLERGIC TO SHELLFISH OR IV DYE? NO . ANY NEW ALLERGIES? NO . PSYCHIATRIC: DO YOU HAVE THOUGHTS OF HURTING YOURSELF OR SOMEONE ELSE? NO . ARE YOU ABUSED, NEGLECTED, OR IN AN UNSAFE ENVIRONMENT? NO . ENDOCRINOLOGY: ARE YOU DIABETIC? NO . OTHER: DO YOU NEED ANY PRESCRIPTIONS? YES . IF YES, PLEASE LIST: VOLTERAN GEL . ANY NEW PROBLEMS WITH YOUR MEDICATIONS? NO . WHEN DID YOU LAST EAT? ____ . WHEN DID YOU LAST DRINK? ____ . WHAT DID YOU LAST DRINK? ____ . NAME OF PERSON DRIVING YOU HOME? ____ . DO YOU HAVE ANY OTHER QUESTIONS OR CONCERNS YES, MRI . VITAL SIGNS WT 180.2 LBS, HT 62 IN, BMI 32.96 INDEX, BP 120/74 MM HG, HR 80 /MIN, RR 16 /MIN, TEMP 98.0 F, OXYGEN SAT % 96%, NA INITIALS TL 0929. EXAMINATION GENERAL EXAMINATION: LUNGS:CLEAR TO AUSCULTATION BILATERALLY, NO WHEEZES, RHONCHI, RALES. HEART:NO MURMURS, REGULAR RATE AND RHYTHM. MUSCULOSKELETAL:MUSCLE STRENGTH TESTING 5/5 BILATERAL, TRIGGER POINTS AND TIGHT FIBEROUS BANDS OVER LEFT CERVICAL PARASPINOUS MUSCLES AND OVER LEFT LUMBAR PARASPINOUS MUSCLES AND THE SACRUM. HEAD IN HEAD FORWARD POSITION.. 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 CLINICAL NOTES: ISTOP REGISTRY REVIEWED AND DEMNOSTRATES COMPLLIANCE. BRINGS IN MEDICATIONS WHICH IS APPROPRIATE FOR WHAT WAS DISPENSED. RECENT URINE TOXICOLOGY REVIEWED. NO UNAUTHORIZED MEDICATIONS. NO ILLICIT SUBSTANCES AND PRESCRIBED MEDICATIONS WERE PRESENT. ([id number]). PREVENTIVE MEDICINE REVIEWED PRE PROCEDURE CARE WITH UNDERSTANDING EXPRESSED BY PT. PROCEDURE CODES FA211 ESTABILISHED PATIENT [facility] FACILITY CHARGE DISPOSITION & COMMUNICATION FOLLOW UP TRIGGER POINTS BEFORE 05/02/17 (REASON: CHECK AUTH FOR TPI) ELECTRONICALLY SIGNED BY ILIA REAGAN ON 05/10/2017 AT 07:03 PM EST DISCLAIMER : THIS IS A VISIT SUMMARY EXTRACTED FROM THE [employer] CHART. IT IS NOT A COPY OF THE [employer] PROGRESS NOTE. MTDD
== END ==
LOC: M PAIN 09:15
PROVIDERS: ATTEND Nurse Practitioner Family
DX: M79.1 Myalgia (principal); M45.0 Ankylosing spondylitis of multiple sites in spine; Z79.891 Long term (current) use of opiate analgesic; M70.62 Trochanteric bursitis, left hip; D50.9 Iron deficiency anemia, unspecified; E55.9 Vitamin D deficiency, unspecified; Z79.899 Other long term (current) drug therapy; Z87.891 Personal history of nicotine dependence

== ENCOUNTER → 2017-04-27 | Outpatient (CLI) | payer BC ==
[2017-04-27 17:26] LABS: BASO # 0.1 10^3/uL (0.0-0.2); BASO % 0.9 % (0.0-1.0); EOS # 0.5 10^3/uL (0.0-0.50); EOS % 5.6 % (0.0-3.0); IMMATURE GRANULOCYTE % 0.9 % (0-0); LYMPH # 3.4 10^3/uL (1.5-4.5); LYMPH % 34.7 % (24.0-44.0); MEAN CORPUSCULAR HGB CONC 33.6 g/dl (32.0-36.5); MEAN CORPUSCULAR VOLUME 89.3 fl (80.0-96.0); MONO # 0.8 10^3/uL (0.0-0.8); MONO % 8.4 % (0.0-5.0); NEUTROPHILS # 4.8 10^3/uL (1.8-7.7); NEUTROPHILS % 49.5 % (36.0-66.0); PLATELET COUNT, AUTOMATED 349 10^3/uL (150-450); RED CELL DISTRIBUTION WIDTH 12.4 % (11.5-14.5); WHITE BLOOD COUNT 9.7 10^3/uL (4.0-10.0)
== END ==
LOC: M WUC 13:58
PROVIDERS: ATTEND Physician Assistant
DX: J20.9 Acute bronchitis, unspecified (principal)

== ENCOUNTER → 2017-05-11 | Outpatient (REF) | payer BC ==
[2017-05-11 13:27] LABS: BASO # 0.1 10^3/uL (0.0-0.2); BASO % 0.5 % (0.0-1.0); EOS # 0.4 10^3/uL (0.0-0.50); EOS % 3.5 % (0.0-3.0); IMMATURE GRANULOCYTE % 0.5 % (0-0); LYMPH # 3.2 10^3/uL (1.5-4.5); LYMPH % 27.1 % (24.0-44.0); MEAN CORPUSCULAR HEMOGLOBIN 30.2 pg (27.0-33.0); MEAN CORPUSCULAR HGB CONC 34.2 g/dl (32.0-36.5); MEAN CORPUSCULAR VOLUME 88.2 fl (80.0-96.0); MONO % 8.5 % (0.0-5.0); NEUTROPHILS # 7.2 10^3/uL (1.8-7.7); NEUTROPHILS % 59.9 % (36.0-66.0); PLATELET COUNT, AUTOMATED 310 10^3/uL (150-450); RED CELL DISTRIBUTION WIDTH 13.2 % (11.5-14.5); WHITE BLOOD COUNT 11.9 10^3/uL (4.0-10.0)
[2017-05-11 13:49] LABS: ALBUMIN 3.6 GM/DL (3.2-5.2); ALBUMIN/GLOBULIN RATIO 1.09 (1.00-1.93); ALKALINE PHOSPHATASE 106 U/L (45-117); ALT/SGPT 36 U/L (12-78); ANION GAP 9 MEQ/L (8-16); AST/SGOT 13 U/L (7-37); BILIRUBIN,TOTAL 0.3 MG/DL (0.2-1.0); BLOOD UREA NITROGEN 16 MG/DL (7-18); CALCIUM LEVEL 8.2 MG/DL (8.5-10.1); CARBON DIOXIDE LEVEL 27 MEQ/L (21-32); CHLORIDE LEVEL 105 MEQ/L (98-107); CREATININE FOR GFR 0.85 MG/DL (0.70-1.30); GLOMERULAR FILTRATION RATE > 60.0 (>60); GLUCOSE, FASTING 163 MG/DL (70-105); POTASSIUM SERUM 3.8 MEQ/L (3.5-5.1); SODIUM LEVEL 141 MEQ/L (136-145); TOTAL PROTEIN 6.9 GM/DL (6.4-8.2)
== END ==
LOC: M SFHCADAM 10:15
PROVIDERS: ATTEND Physician Assistant
DX: R50.9 Fever, unspecified (principal); R19.7 Diarrhea, unspecified

== ENCOUNTER → 2017-05-11 | Outpatient (CLI) | payer BC ==
--- NOTE | 2017-05-12 02:45 | REP ---
Clinical: cough and fever. Comparison: 01/10/2017. Technique: PA and lateral. Findings: The mediastinum and cardiac silhouette are normal. Subtle right upper lobe opacity cannot be excluded. No effusion or pneumothorax. The skeletal structures are intact and normal. Impression: 1. Subtle right upper lobe opacity cannot be excluded. Signed by Chung Perez MD 05/12/2017 02:37 A
== END ==
LOC: M ADAMS 10:17
PROVIDERS: ATTEND Physician Assistant
DX: R91.8 Other nonspecific abnormal finding of lung field (principal); R50.9 Fever, unspecified; R05 Cough

== ENCOUNTER → 2017-05-18 | Outpatient (CLI) | payer BC | LOC: M ADAMS 09:40 | DX: J18.1 Lobar pneumonia, unspecified organism (principal) | CPT/HCPCS: 71020 ==

== ENCOUNTER → 2017-06-02 | Outpatient (CLI) | payer BC | LOC: M PAIN 10:45 | DX: M45.0 Ankylosing spondylitis of multiple sites in spine (principal); M70.62 Trochanteric bursitis, left hip; M79.1 Myalgia; Z79.899 Other long term (current) drug therapy; Z87.891 Personal history of nicotine dependence | CPT/HCPCS: G0463 ==

== ENCOUNTER → 2017-06-06 | Outpatient (CLI) | payer BC ==
[~2017-06-06] MED LIST changes: -/CELE20CA PO; -AIRB1TAB PO; -CARI350T PO; -CHAN0.5P6 PO; -CHAN1PAK11 PO; -COLA50CA5 PO; -DEXI60CA2 PO; -ETOD40ERTA PO; -EXAL8TAB PO; -FENT25PA TD; -FLEX10TA2 PO; -FLEXARIL PO; -FLUO20CA19 PO; -GABA300C2 PO; -HYDR5TAB23 PO; -IBUP80TA PO; -INFL10VL IV; -IRON65TA PO; +ISOVUE-370 76% 100ML VIAL (Q9967) As Ordered; -LYRI75CA PO; -META1TAB22 PO; -MIRA33504 PO; -MORP-38 PO; -MORP15TA2 PO; -MULTCAP11 PO; -MULTTAB6 PO; -NAPR500T2 PO; -NEXI40CA PO; -PERC7.5T12 PO; -PRIL40CA PO; -QUET1TAB8 PO; -RANI300T PO; -ROBA750T4 PO; -SOMA350T PO; -TIZA2CAP3 PO; -TRAZ-136 PO; -VITA-121 PO; -VITA10006 PO; -VITA1CAP40 PO; -VOLT1GEL15 TD; -VOLT1GEL2 TD; -ZANA4CAP PO; -hydroxycut PO; -oxycodone IR PO
== END ==
LOC: M RAD 08:11
DX: J18.1 Lobar pneumonia, unspecified organism (principal)
CPT/HCPCS: Q9967

== ENCOUNTER → 2017-07-07 | Outpatient (CLI) | payer BC ==
[~2017-07-07] MED LIST changes: +BUPIVACAINE HCL 0.25% 10 ML VIAL As Ordered; +BUPIVACAINE HCL 0.25% 30 ML VIAL As Ordered; -ISOVUE-370 76% 100ML VIAL (Q9967) As Ordered; +TRIAMCINOLONE ACETONIDE SUSP 40 MG/ML VIAL (J3301) As Ordered; +diazePAM 5 MG TAB As Ordered; +oxyCODONE 5MG TAB As Ordered
== END ==
LOC: M PAIN 08:30
DX: M79.1 Myalgia (principal); D50.9 Iron deficiency anemia, unspecified; K21.9 Gastro-esophageal reflux disease without esophagitis; E55.9 Vitamin D deficiency, unspecified; K59.00 Constipation, unspecified; Z79.891 Long term (current) use of opiate analgesic; Z79.899 Other long term (current) drug therapy; Z87.891 Personal history of nicotine dependence
CPT/HCPCS: J3301

== ENCOUNTER → 2017-07-21 | Outpatient (CLI) | payer BC | LOC: M PAIN 09:30 | DX: G89.29 Other chronic pain (principal); M79.1 Myalgia; M45.0 Ankylosing spondylitis of multiple sites in spine; M54.5 Low back pain; M70.62 Trochanteric bursitis, left hip; K21.9 Gastro-esophageal reflux disease without esophagitis; E55.9 Vitamin D deficiency, unspecified; D50.9 Iron deficiency anemia, unspecified; Z79.891 Long term (current) use of opiate analgesic; Z87.891 Personal history of nicotine dependence; Z79.899 Other long term (current) drug therapy | CPT/HCPCS: G0463 ==

== ENCOUNTER → 2017-07-25 | Outpatient (CLI) | payer BC ==
[2017-07-25 20:35] LABS: IRON (FE) 111 UG/DL (65-175)
[2017-07-25 20:35] LABS: C REACTIVE PROTEIN QUANTITATIV 1.48 MG/DL (0.00-0.30)
[2017-07-25 20:39] LABS: FERRITIN 165 NG/ML (26-388); IRON (FE) 109 UG/DL (65-175); PERCENT SATURATION 42.9 % (19.7-50.0); TOTAL IRON BINDING CAPACITY 254 UG/DL (250-450)
[2017-07-25 21:06] LABS: BASO # 0.1 10^3/uL (0.0-0.2); BASO % 0.9 % (0.0-1.0); EOS # 0.2 10^3/uL (0.0-0.50); EOS % 2.5 % (0.0-3.0); HEMATOCRIT 43.7 % (42.0-52.0); HEMOGLOBIN 14.5 g/dl (14.0-18.0); LYMPH # 2.8 10^3/uL (1.5-4.5); LYMPH % 35.7 % (24.0-44.0); MEAN CORPUSCULAR HEMOGLOBIN 29.4 pg (27.0-33.0); MEAN CORPUSCULAR HGB CONC 33.2 g/dl (32.0-36.5); MEAN CORPUSCULAR VOLUME 88.5 fl (80.0-96.0); MONO # 0.5 10^3/uL (0.0-0.8); MONO % 6.8 % (0.0-5.0); NEUTROPHILS # 4.2 10^3/uL (1.8-7.7); NEUTROPHILS % 53.1 % (36.0-66.0); PLATELET COUNT, AUTOMATED 373 10^3/uL (150-450); RED BLOOD COUNT 4.94 10^6/uL (4.30-6.10); RED CELL DISTRIBUTION WIDTH 13.3 % (11.5-14.5)
[2017-07-25 22:14] LABS: ERYTHROCYTE SEDIMENTATION RATE 7 mm/hr (0-15)
== END ==
LOC: M WUC 15:35
DX: M45.0 Ankylosing spondylitis of multiple sites in spine (principal); E61.1 Iron deficiency; Z79.899 Other long term (current) drug therapy
CPT/HCPCS: 83540

== ENCOUNTER → 2017-09-04 | Outpatient (REF) | payer BC ==
[2017-09-04 12:45] LABS: BASO # 0.1 10^3/uL (0.0-0.2); BASO % 0.6 % (0.0-1.0); EOS # 0.4 10^3/uL (0.0-0.50); EOS % 3.7 % (0.0-3.0); HEMATOCRIT 39.2 % (42.0-52.0); HEMOGLOBIN 13.5 g/dl (13.5-17.5); IMMATURE GRANULOCYTE % 0.5 % (0-3.0); LYMPH # 3.7 10^3/uL (1.5-4.5); LYMPH % 32.9 % (24.0-44.0); MEAN CORPUSCULAR HEMOGLOBIN 29.7 pg (27.0-33.0); MEAN CORPUSCULAR HGB CONC 34.4 g/dl (32.0-36.5); MEAN CORPUSCULAR VOLUME 86.3 fl (80.0-96.0); MONO # 1.1 10^3/uL (0.0-0.8); MONO % 9.8 % (0.0-5.0); NEUTROPHILS # 5.8 10^3/uL (1.8-7.7); NEUTROPHILS % 52.5 % (36.0-66.0); PLATELET COUNT, AUTOMATED 347 10^3/uL (150-450); RED BLOOD COUNT 4.54 10^6/uL (4.30-6.10); RED CELL DISTRIBUTION WIDTH 13.3 % (11.5-14.5); WHITE BLOOD COUNT 11.1 10^3/uL (4.0-10.0)
[2017-09-04 13:15] LABS: TOTAL 25(OH) VITAMIN D 25.6 NG/ML (30.0-100.0)
[2017-09-04 13:34] LABS: ALBUMIN 3.6 GM/DL (3.2-5.2); ALKALINE PHOSPHATASE 115 U/L (45-117); ALT/SGPT 44 U/L (12-78); ANION GAP 9 MEQ/L (8-16); AST/SGOT 16 U/L (7-37); BILIRUBIN,TOTAL 0.4 MG/DL (0.2-1.0); BLOOD UREA NITROGEN 6 MG/DL (7-18); CALCIUM LEVEL 8.4 MG/DL (8.5-10.1); CARBON DIOXIDE LEVEL 26 MEQ/L (21-32); CHLORIDE LEVEL 108 MEQ/L (98-107); CHOLESTEROL LEVEL 202 MG/DL (<200); CREATININE FOR GFR 0.71 MG/DL (0.70-1.30); FREE T4 0.94 NG/DL (0.76-1.46); GLOMERULAR FILTRATION RATE > 60.0 (>60); GLUCOSE, FASTING 145 MG/DL (70-100); HDL CHOLESTEROL 40 MG/DL (>40); LDL CHOLESTEROL 134.4 MG/DL (<100); NON-HDL-C 162 MG/DL; POTASSIUM SERUM 3.5 MEQ/L (3.5-5.1); SODIUM LEVEL 143 MEQ/L (136-145); TOTAL PROTEIN 7.2 GM/DL (6.4-8.2); TRIGLYCERIDES LEVEL 138 MG/DL (<150)
[2017-09-04 14:58] LABS: ESTIMATED AVERAGE GLUCOSE 166 MG/DL (60-110); HEMOGLOBIN A1c 7.4 %
== END ==
LOC: M SFHCADAM 08:12
DX: J18.1 Lobar pneumonia, unspecified organism (principal); A07.1 Giardiasis [lambliasis]; E55.9 Vitamin D deficiency, unspecified
CPT/HCPCS: 84443

== ENCOUNTER → 2017-09-06 | Outpatient (CLI) | payer BC | LOC: M PAIN 09:15 | DX: M45.0 Ankylosing spondylitis of multiple sites in spine (principal); G89.29 Other chronic pain; M79.1 Myalgia; K21.9 Gastro-esophageal reflux disease without esophagitis; Z79.899 Other long term (current) drug therapy; Z79.891 Long term (current) use of opiate analgesic; Z87.891 Personal history of nicotine dependence | CPT/HCPCS: G0463 ==

== ENCOUNTER → 2017-10-25 | Outpatient (CLI) | payer BC | LOC: M PAIN 09:30 | DX: M45.0 Ankylosing spondylitis of multiple sites in spine (principal); M79.1 Myalgia; D50.9 Iron deficiency anemia, unspecified; Z79.891 Long term (current) use of opiate analgesic; Z79.899 Other long term (current) drug therapy; Z87.891 Personal history of nicotine dependence | CPT/HCPCS: G0463 ==

== ENCOUNTER → 2017-11-03 | Outpatient (REF) | payer BC ==
[2017-11-03 19:33] LABS: ESTIMATED AVERAGE GLUCOSE 237 MG/DL (60-110); HEMOGLOBIN A1c 9.9 %
[2017-11-03 19:35] LABS: ALBUMIN 3.5 GM/DL (3.2-5.2); ALBUMIN/GLOBULIN RATIO 0.85 (1.00-1.93); ALKALINE PHOSPHATASE 191 U/L (45-117); ALT/SGPT 40 U/L (12-78); ANION GAP 9 MEQ/L (8-16); AST/SGOT 16 U/L (7-37); BILIRUBIN,TOTAL 0.2 MG/DL (0.2-1.0); BLOOD UREA NITROGEN 11 MG/DL (7-18); CARBON DIOXIDE LEVEL 30 MEQ/L (21-32); CHLORIDE LEVEL 103 MEQ/L (98-107); CREATININE FOR GFR 0.76 MG/DL (0.70-1.30); GLOMERULAR FILTRATION RATE > 60.0 (>60); GLUCOSE, FASTING 289 MG/DL (70-100); POTASSIUM SERUM 4.8 MEQ/L (3.5-5.1); SODIUM LEVEL 142 MEQ/L (136-145); TOTAL PROTEIN 7.6 GM/DL (6.4-8.2)
== END ==
LOC: M SFHCADAM 13:54
DX: R73.01 Impaired fasting glucose (principal)
CPT/HCPCS: 80053

== ENCOUNTER → 2017-12-13 | Outpatient (CLI) | payer BC | LOC: M PAIN 08:30 | DX: M45.0 Ankylosing spondylitis of multiple sites in spine (principal); G89.29 Other chronic pain; M79.1 Myalgia; E11.9 Type 2 diabetes mellitus without complications; K21.9 Gastro-esophageal reflux disease without esophagitis; Z79.84 Long term (current) use of oral hypoglycemic drugs; Z79.899 Other long term (current) drug therapy; Z87.891 Personal history of nicotine dependence | CPT/HCPCS: G0463 ==

== ENCOUNTER → 2018-01-01 | Outpatient (REF) | payer BC ==
[2018-01-01 19:00] LABS: ALBUMIN 3.6 GM/DL (3.2-5.2); ALBUMIN/GLOBULIN RATIO 0.97 (1.00-1.93); ALKALINE PHOSPHATASE 113 U/L (45-117); ALT/SGPT 44 U/L (12-78); ANION GAP 9 MEQ/L (8-16); AST/SGOT 15 U/L (7-37); BILIRUBIN,TOTAL 0.2 MG/DL (0.2-1.0); BLOOD UREA NITROGEN 10 MG/DL (7-18); CALCIUM LEVEL 8.7 MG/DL (8.5-10.1); CARBON DIOXIDE LEVEL 29 MEQ/L (21-32); CHLORIDE LEVEL 105 MEQ/L (98-107); CREATININE FOR GFR 0.81 MG/DL (0.70-1.30); GLOMERULAR FILTRATION RATE > 60.0 (>60); GLUCOSE, FASTING 156 MG/DL (70-100); POTASSIUM SERUM 3.9 MEQ/L (3.5-5.1); SODIUM LEVEL 143 MEQ/L (136-145); TOTAL PROTEIN 7.3 GM/DL (6.4-8.2)
[2018-01-01 19:04] LABS: ESTIMATED AVERAGE GLUCOSE 194 MG/DL (60-110); HEMOGLOBIN A1c 8.4 %
== END ==
LOC: M SFHCADAM 13:46
DX: E11.9 Type 2 diabetes mellitus without complications (principal)
CPT/HCPCS: 80053

== ENCOUNTER → 2018-02-13 | Outpatient (CLI) | payer BC | LOC: M PAIN 09:45 | DX: M45.0 Ankylosing spondylitis of multiple sites in spine (principal); Z79.891 Long term (current) use of opiate analgesic; M79.1 Myalgia; K21.9 Gastro-esophageal reflux disease without esophagitis; E55.9 Vitamin D deficiency, unspecified; D50.9 Iron deficiency anemia, unspecified; Z87.891 Personal history of nicotine dependence; Z79.84 Long term (current) use of oral hypoglycemic drugs; Z79.899 Other long term (current) drug therapy | CPT/HCPCS: G0463 ==

== ENCOUNTER → 2018-03-15 | Outpatient (CLI) | payer BC | LOC: M PAIN 09:15 | DX: M45.0 Ankylosing spondylitis of multiple sites in spine (principal); M79.18 Myalgia, other site; E11.9 Type 2 diabetes mellitus without complications; Z79.84 Long term (current) use of oral hypoglycemic drugs; Z79.891 Long term (current) use of opiate analgesic; Z79.899 Other long term (current) drug therapy; Z87.891 Personal history of nicotine dependence | CPT/HCPCS: G0463 ==

== ENCOUNTER → 2018-04-05 | Outpatient (REF) | payer BC ==
[2018-04-05 20:21] LABS: BASO # 0.1 10^3/uL (0.0-0.2); BASO % 0.6 % (0.0-1.0); EOS # 0.4 10^3/uL (0.0-0.50); EOS % 3.3 % (0.0-3.0); HEMATOCRIT 42.5 % (42.0-52.0); HEMOGLOBIN 14.2 g/dl (13.5-17.5); IMMATURE GRANULOCYTE % 0.5 % (0-3.0); LYMPH # 3.1 10^3/uL (1.5-4.5); LYMPH % 23.7 % (24.0-44.0); MEAN CORPUSCULAR HEMOGLOBIN 30.2 pg (27.0-33.0); MEAN CORPUSCULAR HGB CONC 33.4 g/dl (32.0-36.5); MEAN CORPUSCULAR VOLUME 90.4 fl (80.0-96.0); MONO # 0.8 10^3/uL (0.0-0.8); MONO % 5.7 % (0.0-5.0); NEUTROPHILS # 8.7 10^3/uL (1.8-7.7); NEUTROPHILS % 66.2 % (36.0-66.0); PLATELET COUNT, AUTOMATED 321 10^3/uL (150-450); RED CELL DISTRIBUTION WIDTH 12.7 % (11.5-14.5); WHITE BLOOD COUNT 13.2 10^3/uL (4.0-10.0)
[2018-04-05 20:35] LABS: ESTIMATED AVERAGE GLUCOSE 114 MG/DL (60-110); HEMOGLOBIN A1c 5.6 %
[2018-04-05 20:44] LABS: ALBUMIN 3.8 GM/DL (3.2-5.2); ALBUMIN/GLOBULIN RATIO 1.12 (1.00-1.93); ALKALINE PHOSPHATASE 94 U/L (45-117); ALT/SGPT 44 U/L (12-78); ANION GAP 6 MEQ/L (8-16); AST/SGOT 22 U/L (7-37); BILIRUBIN,TOTAL 0.2 MG/DL (0.2-1.0); BLOOD UREA NITROGEN 11 MG/DL (7-18); C REACTIVE PROTEIN QUANTITATIV 0.63 MG/DL (0.00-0.30); CALCIUM LEVEL 8.8 MG/DL (8.5-10.1); CARBON DIOXIDE LEVEL 30 MEQ/L (21-32); CHLORIDE LEVEL 101 MEQ/L (98-107); CREATININE FOR GFR 0.89 MG/DL (0.70-1.30); GLOMERULAR FILTRATION RATE > 60.0 (>60); GLUCOSE, FASTING 129 MG/DL (70-100); IMMUNOGLOBULIN A 456 MG/DL (70-400); IMMUNOGLOBULIN G 998 MG/DL (681-1648); IMMUNOGLOBULIN M 88 MG/DL (40-230); SODIUM LEVEL 137 MEQ/L (136-145); TOTAL PROTEIN 7.2 GM/DL (6.4-8.2)
[2018-04-05 20:45] LABS: ERYTHROCYTE SEDIMENTATION RATE 6 mm/hr (0-15)
[2018-04-06 10:48] LABS: HIV 1&2 SCREEN CENTAUR NEGATIVE (NEGATIVE)
[2018-04-08 00:06] LABS: ANA (HEP2) Positive (.); QuantiFERON-TB Gold Plus Negative (Negative)
== END ==
LOC: M SFHCADAM 13:39
DX: M45.9 Ankylosing spondylitis of unspecified sites in spine (principal); E11.9 Type 2 diabetes mellitus without complications
CPT/HCPCS: 80053

== ENCOUNTER 2018-04-19 12:29 | Outpatient (CLI) | payer BC ==
[2018-04-19] MEDS: FILTER 1.2 MICRON (ADULT TPN/MANNITOL/REMICADE) XX (13:00)
[2018-04-19] MEDS: diphenhydrAMINE 25MG PO PRIOR TO INFUSION PO (13:02)
[2018-04-19] MEDS: ACETAMINOPHEN 650MG PO PRIOR TO INFUSION PO (13:02)
[2018-04-19] MEDS: NS 1,000 ML IV (13:02)
[2018-04-19] MEDS: inFLIXimab INJECTION 400 MG in NS 210 ML IV (13:16)
== END 2018-04-19 15:35 | disposition home or self-care (01) ==
LOC: M INFU 12:29
DX: M45.9 Ankylosing spondylitis of unspecified sites in spine (principal)
CPT/HCPCS: J1745

== ENCOUNTER 2018-05-31 12:34 | Outpatient (CLI) | payer BC ==
[~2018-05-31] VITALS: Ht 157.5 cm; Wt 79.3 kg
[2018-05-31] VITALS (7 sets, daily range): BP systolic 104–116; BP diastolic 58–68
[~2018-05-31 12:34] MED LIST changes: +/CELE20CA PO; +AIRB1TAB PO; -BUPIVACAINE HCL 0.25% 10 ML VIAL As Ordered; -BUPIVACAINE HCL 0.25% 30 ML VIAL As Ordered; +BYDU1INJ SC; +CARI1TAB7 PO; +CHAN0.5P6 PO; +CHAN1PAK11 PO; +COLA50CA5 PO; +CYCL10TA PO; +DEXI60CA2 PO; +ETOD40ERTA PO; +EXAL8TAB PO; +FENT25PA TD; +FLEX10TA2 PO; +FLEXARIL PO; +FLUO20CA19 PO; +GABA300C2 PO; +HYDR5TAB23 PO; +IBUP80TA PO; +INFL10VL IV; +IRON65TA PO; +LYRI75CA PO; +META1TAB22 PO; +METF10004 PO; +MIRA33504 PO; +MORP-38 PO; +MORP15TA2 PO; +MULTCAP11 PO; +MULTTAB6 PO; +NAPR500T2 PO; +NEXI40CA PO; +PERC7.5T12 PO; +PRIL40CA PO; +QUET1TAB8 PO; +RANI300T PO; +ROBA750T4 PO; +SOMA350T PO; +TIZA2CAP PO; +TRAZ-163 PO; -TRIAMCINOLONE ACETONIDE SUSP 40 MG/ML VIAL (J3301) As Ordered; +VITA-121 PO; +VITA10006 PO; +VITA50005 PO; +VOLT1GEL15 TD; +VOLT1GEL2 TD; +ZANA4CAP PO; -diazePAM 5 MG TAB As Ordered; +hydroxycut PO; -oxyCODONE 5MG TAB As Ordered; +oxycodone IR PO
[2018-05-31] MEDS ORDERED: ACETAMINOPHEN 650MG PO PRIOR TO INFUSION PO ONE (13:00)
[2018-05-31] MEDS ORDERED: diphenhydrAMINE 25MG PO PRIOR TO INFUSION PO ONE (13:00)
[2018-05-31] MEDS ORDERED: inFLIXimab INJECTION 400 MG in NS 210 ML IV ONE (13:00)
[2018-05-31] MEDS ORDERED: NS 1,000 ML IV SCH (13:00)
[2018-05-31] MEDS ORDERED: FILTER 1.2 MICRON (ADULT TPN/MANNITOL/REMICADE) XX ONE (13:00)
== END 2018-05-31 15:35 | disposition home or self-care (01) ==
LOC: M INFU 12:34
PROVIDERS: ATTEND Internal Medicine Rheumatology
DX: M45.9 Ankylosing spondylitis of unspecified sites in spine (principal)
CPT/HCPCS: 96413; 96415; J1745

== ENCOUNTER → 2018-06-15 | Outpatient (CLI) | payer BC ==
--- NOTE | 2018-06-30 00:55 | ECWPNPC ---
PATIENT NAME: JOSUE MARTINEZ : 1975 GENDER: MALE VISIT DATE: 06/15/2018 DISCHARGE DATE: 06/15/18 1003 VISIT LOCKED DATE TIME: PHYSICIAN: RHIANNON NASCIMENTO RESOURCE: RHIANNON NASCIMENTO REASON FOR APPOINTMENT 1. 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 PAIN THE PATIENT DESCRIBES THE PAIN... FALL RISK SCREENING: SCREENING :NO FALLS IN THE PAST YEAR CURRENT MEDICATIONS TAKING PROBIOTIC - CAPSULE 1 CAPSULE ORALLY TWICE A DAY TAKING MENS MULTIVITAMIN PLUS TABLET 1 TAB ORALLY DAILY TAKING REMICADE 100 MG SOLUTION RECONSTITUTED INTRAVENOUS EVERY 6 WEEKS, NOTES: JAN 25 TAKING AIRBORNE TABLET EFFERVESCENT ORALLY ONCE DAILY TAKING FERROUS SULFATE 325 (65 FE) MG TABLET 1 TABLET ORALLY ONCE A DAY TAKING MIRALAX - PACKET 1 PACKET MIXED WITH 8 OUNCES OF FLUID ORALLY TWICE DAILY NEEDED TAKING COLACE 100 MG CAPSULE 1 CAPSULE NEEDED ORALLY TWICE A DAY TAKING CLARITIN 10 MG TABLET 1 TABLET ORALLY ONCE A DAY TAKING VOLTAREN 1 % GEL ONE APPLICATION EXTERNALLY APPLY 4 GMS FOUR TIMES DAILY TO BACK, NECK AREA TAKING BENADRYL ALLERGY 25 MG TABLET 1 TABLET ORALLY EVERY 6 HRS NEEDED TAKING CAPSAICIN 0.1 % CREAM 1 APPLICATION TO AFFECTED AREA NEEDED EXTERNALLY THREE TIMES A DAY TAKING CYCLOBENZAPRINE HCL 10 MG TABLET 1 TABLET NEEDED ORALLY THREE TIMES A DAY TAKING QUETIAPINE FUMARATE 200 MG TABLET 1 TABLET ORALLY ONCE A DAY TAKING BYDUREON 2 MG PEN-INJECTOR DIRECTED SUBCUTANEOUS WEEKLY TAKING DRISDOL 44727 UNIT CAPSULE 1 CAPSULE ORALLY WEEKLY TAKING ZANTAC 300 MG TABLET 1 TABLET AT BEDTIME ORALLY ONCE A DAY TAKING DEXILANT 60 MG CAPSULE DELAYED RELEASE 1 CAPSULE ORALLY ONCE A DAY TAKING PROZAC 20 MG CAPSULE 3 CAPSULE3 ORALLY ONCE A DAY TAKING METFORMIN HCL 1000 MG TABLET 1 TAB ORALLY TWICE DAILY TAKING NAPROXEN 375 MG TABLET 1 TABLET WITH FOOD OR MILK NEEDED ORALLY EVERY 12 HRS TAKING MORPHINE SULFATE 15 MG TABLET 1 -2 TABLET NEEDED ORALLY EVERY 6 HRS PRN PAIN MDD=5 MEDICATION LIST REVIEWED AND RECONCILED WITH THE PATIENT PAST MEDICAL HISTORY GERD, 03/05 EGD IRREG Z LINE, REINDL CHRONIC LOW BACK PAIN (INJURED AT WORK) - SUMMER 2009 VIT D DEF FE DEF ANEMIA FORMER SMOKER, QUIT 01/02, SMOKED 18 Y, 1/2 PPD ANKYLOSING SPONDYLITIS - DR SOUZA DX 03/05 02/03 CT CHEST 8.5 MM CAVITARY LESION(LIKELY ABSCESS) 04/05 - PER PULM NO FURTHER IMAGING REQUIRED DM2, 09/06 ALLERGIES N.K.D.A. SURGICAL HISTORY DENIES PAST SURGICAL HISTORY FAMILY HISTORY FATHER: 65 YRS, DIAGNOSED WITH OTHER MOTHER: ALIVE 65 YRS, DIAGNOSED WITH DIABETES, OTHER IN 6 SIBLINGS: ALIVE SON(S): ALIVE 13 YRS DAUGHTER(S): ALIVE 4 BROTHER(S) , 1 SISTER(S) . 1 SON(S) , 2 DAUGHTER(S) - HEALTHY. YOUNGEST BROTHER DIABETIC, OLDEST SISTER DIABETIC. SOCIAL HISTORY GENERAL: TOBACCO USE ARE YOU A:NONSMOKER LUNG CANCER SCREENING SMOKING STATUS:NON SMOKER BMI CARE GOAL FOLLOW-UP ABOVE NORMAL BMI FOLLOW-UPDIETARY MANAGEMENT EDUCATION, GUIDANCE, AND COUNSELING ALCOHOL SCREENING DID YOU HAVE A DRINK CONTAINING ALCOHOL IN THE PAST YEAR?YES HOW OFTEN DID YOU HAVE SIX OR MORE DRINKS ON ONE OCCASION IN THE PAST YEAR?NEVER (0 POINTS) HOW MANY DRINKS DID YOU HAVE ON A TYPICAL DAY WHEN YOU WERE DRINKING IN THE PAST YEAR?1 OR 2 (0 POINTS) HOW OFTEN DID YOU HAVE A DRINK CONTAINING ALCOHOL IN THE PAST YEAR?MONTHLY OR LESS (1 POINT) POINTS1 INTERPRETATIONNEGATIVE RECREATIONAL DRUG USE DRUG USE?NO CAFFEINE CAFFEINE USE?YES SEXUAL HX HAD SEX IN THE LAST 12 MONTHS (VAGINAL, ORAL, OR ANAL)?YES WITHWOMEN ONLY USE PROTECTION?NO HAVE YOU EVER HAD AN STD?NO HIV / HEP-C SCREENING HIV TEST OFFERED TO PATIENT:YES DATE OFFERED:08/30/2016 TEST ACCEPTED:NO HEP-C TEST OFFERED TO PATIENT:YES DATE OFFERED:08/30/2016 REASON:PATIENT DECLINED TEST ACCEPTED:NO REASON:PATIENT DECLINED RESTORATION [id number] NONE LANGUAGE LANGUAGES SPOKEN:UKRAINIAN EDUCATION LEVEL OF EDUCATION:FINISHED HIGH SCHOOL 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?NO SCHOOL PROGRAM DIRECTOR NEEDED?NO DOMESTIC VIOLENCE DO YOU FEEL SAFE IN YOUR ENVIRONMENT?YES DIET: REGULAR. EXERCISE: NONE. MARITAL STATUS: . NEW PATIENT PAIN DIARY TODAY'S VISIT NOTES, FROM 0-10, WHAT LEVEL IS YOUR PAIN TODAY? 0. PAIN CLINIC PFS, CLERGY, PUBLIC HEALTH REFERRALS PFS REFERRAL NEEDED?NO CLERGY REFERRAL NEEDED?NO PUBLIC HEALTH REFERRAL NEEDED?NO WAS THE PROVIDER NOTIFIED OF ANY PERTINENT INFO?NO HAS THE PATIENT BEEN EDUCATED REGARDING HIS/HER PLAN OF CARE?YES TPI REVIEWED HAS THE PATIENT BEEN EDUCATED REGARDING PAIN, THE RISK FOR PAIN, THE IMPORTANCE OF EFFECTIVE PAIN MANAGEMENT, AND THE PAIN ASSESSMENT PROCESS?YES ADVANCE DIRECTIVE ADVANCE DIRECTIVE DISCUSSED WITH PATIENT:YES PT. DECLINES INFORMATION REVIEWED WITH PATIENT 03/15/18 0933 JS. HOSPITALIZATION/MAJOR DIAGNOSTIC PROCEDURE DENIES PAST HOSPITALIZATION REVIEW OF SYSTEMS REVIEWED BY: PROVIDER: RHIANNON JOLLY . CONSTITUTIONAL: ANY CHANGE IN YOUR MEDICAL CONDITION? NO . CHILLS NO . FEVER NO . INFECTION: DO YOU HAVE NEW INFECTIONS? NO . DO YOU HAVE HISTORY OF MRSA? NO . MUSCULOSKELETAL: ANY NEW PATTERNS OF PAIN OR NUMBNESS? NO . GASTROENTEROLOGY: ANY NEW CHANGE IN BOWEL CONTROL? NO . GENITOURINARY: ANY NEW CHANGE IN BLADDER CONTROL? NO . IS THERE A CHANCE YOU COULD BE ? NO . HEMATOLOGY/LYMPH: DO YOU TAKE ANY BLOOD THINNERS? (FOR EXAMPLE- COUMADIN, PLAVIX, AGGRENOX, PLATEL, PRADAXA, OR XARELTO) NO . WHEN WAS YOUR LAST DOSE? DATE: TIME: . NEUROLOGY: HAVE YOU FALLEN IN THE PAST 12 MONTHS? YES, PRIOR TO LAST VISIT . ANY NEW EXTREMITY NUMBNESS OR WEAKNESS? NO . CARDIOLOGY: DO YOU HAVE A PACEMAKER OR DEFIBRILLATOR? NO . RESPIRATORY: HAVE YOU BEEN SICK IN THE PAST WEEK? YES . FEVER YES . FLU LIKE SYMPTOMS? NO . COUGH YES, PRODUTIVE GREEN MUCOUS X 1 WEEK WAS SEEN AT URGENT CARE LAST WEEK TX'D W NASAL SPRAY, S/S ARE IMPROVING . INTEGUMENTARY: DO YOU HAVE ANY RASHES OR OPEN SORES? NO . ALLERGIC/IMMUNO: ARE YOU ALLERGIC TO IV DYE? NO . ANY NEW ALLERGIES? NO . PSYCHIATRIC: DO YOU HAVE THOUGHTS OF HURTING YOURSELF OR SOMEONE ELSE? NO . ARE YOU ABUSED, NEGLECTED, OR IN AN UNSAFE ENVIRONMENT? NO . ENDOCRINOLOGY: ARE YOU DIABETIC? YES . OTHER: DO YOU NEED ANY PRESCRIPTIONS? YES, MORPHINE, VOLTEREN GEL, MUSCLE RELAXANT . IF YES, PLEASE LIST: ____ . ANY NEW PROBLEMS WITH YOUR MEDICATIONS? NO . WHEN DID YOU LAST EAT? ____ . WHEN DID YOU LAST DRINK? ____ . WHAT DID YOU LAST DRINK? ____ . NAME OF PERSON DRIVING YOU HOME? ____ . DO YOU HAVE ANY OTHER QUESTIONS OR CONCERNS NO . VITAL SIGNS WT 173.8 LBS, HT 62 IN, BMI 31.78 INDEX, BP 134/73 MM HG, HR 69 /MIN, RR 18 /MIN, TEMP 98.6 F, OXYGEN SAT % 95%, NA INITIALS AW 0926, REVIEWED BY: KINA. EXAMINATION GENERAL EXAMINATION: GENERAL APPEARANCE:AWAKE,ALERT ,PLEAASANT . PSYCHAFFECT NORMAL . LUNGS:LUNG EARLY ARE CLEAR TO AUSCULTATION BILATERALLY. GOOD MOVEMENT OF AIR . HEART:S1, S2 IN A REGULAR RATE AND RHYTHM. NO SIGNIFICANT MURMURS, RUBS OR GALLOPS NOTED . SHOULDER / UPPER ARM: SHOULDER:LEFT. INSPECTION:NO SWELLING OR REDNESS. PALPATION:TENDERNESS ON SUBDELTOID BURSA. 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 FORGOT MEDICATION. RECENT URINE TOXICOLOGY REVIEWED. NO UNAUTHORIZED MEDICATIONS. NO ILLICIT SUBSTANCES AND PRESCRIBED MEDICATIONS WERE PRESENT. PROCEDURE CODES FA211 ESTABILISHED PATIENT [facility] CHARGE DISPOSITION & COMMUNICATION FOLLOW UP POST (REASON: REFER TO JACIEL VERENICE FOR TENS UNIT LEFT SHOULDER) ELECTRONICALLY SIGNED BY RIK PEÑA ON 06/29/2018 AT 03:18 PM EST DISCLAIMER : THIS IS A VISIT SUMMARY EXTRACTED FROM THE [employer] CHART. IT IS NOT A COPY OF THE [employer] PROGRESS NOTE. JANEL
== END ==
LOC: M PAIN 09:00
PROVIDERS: ATTEND Nurse Practitioner Family
DX: M45.0 Ankylosing spondylitis of multiple sites in spine (principal); M25.512 Pain in left shoulder; G89.29 Other chronic pain; E11.9 Type 2 diabetes mellitus without complications; E55.9 Vitamin D deficiency, unspecified; Z79.84 Long term (current) use of oral hypoglycemic drugs; Z79.899 Other long term (current) drug therapy

== ENCOUNTER → 2018-06-19 | Outpatient (CLI) | payer BC ==
[2018-06-19 19:59] LABS: ALBUMIN 3.9 GM/DL (3.2-5.2); ALT/SGPT 42 U/L (12-78); BASO # 0.1 10^3/uL (0.0-0.2); BASO % 0.8 % (0.0-1.0); BILIRUBIN,TOTAL 0.3 MG/DL (0.2-1.0); BLOOD UREA NITROGEN 10 MG/DL (7-18); C REACTIVE PROTEIN QUANTITATIV 0.83 MG/DL (0.00-0.30); CALCIUM LEVEL 8.7 MG/DL (8.5-10.1); CARBON DIOXIDE LEVEL 29 MEQ/L (21-32); CHLORIDE LEVEL 101 MEQ/L (98-107); CREATININE FOR GFR 0.77 MG/DL (0.70-1.30); EOS # 0.3 10^3/uL (0.0-0.50); EOS % 3.3 % (0.0-3.0); GLOMERULAR FILTRATION RATE > 60.0 (>60); GLUCOSE, FASTING 116 MG/DL (70-100); HEMATOCRIT 42.1 % (42.0-52.0); HEMOGLOBIN 13.9 g/dl (13.5-17.5); LYMPH # 3.7 10^3/uL (1.5-4.5); LYMPH % 42.7 % (24.0-44.0); MEAN CORPUSCULAR HEMOGLOBIN 30.1 pg (27.0-33.0); MEAN CORPUSCULAR VOLUME 91.1 fl (80.0-96.0); MONO # 0.6 10^3/uL (0.0-0.8); MONO % 6.5 % (0.0-5.0); NEUTROPHILS % 46.2 % (36.0-66.0); PLATELET COUNT, AUTOMATED 346 10^3/uL (150-450); RED BLOOD COUNT 4.62 10^6/uL (4.30-6.10); SODIUM LEVEL 137 MEQ/L (136-145); TOTAL PROTEIN 7.2 GM/DL (6.4-8.2); WHITE BLOOD COUNT 8.7 10^3/uL (4.0-10.0)
[2018-06-19 20:33] LABS: ERYTHROCYTE SEDIMENTATION RATE 6 mm/hr (0-15)
[2018-06-20 09:57] LABS: HEPATITIS B SURFACE ANTIBODY NEGATIVE (POSITIVE)
[2018-06-20 10:07] LABS: HEPATITIS B SURFACE ANTIGEN NEGATIVE (NEGATIVE)
[2018-06-20 10:35] LABS: HEPATITIS C VIRUS ABY INDEX 0.1 INDEX (<0.8)
== END ==
LOC: M WUC 16:01
PROVIDERS: ATTEND Internal Medicine Rheumatology
DX: M45.9 Ankylosing spondylitis of unspecified sites in spine (principal); Z79.899 Other long term (current) drug therapy

== ENCOUNTER 2018-07-17 07:17 | Outpatient (CLI) | payer BC ==
[~2018-07-17] VITALS: Ht 157.5 cm; Wt 79.3 kg
[2018-07-17] VITALS (8 sets, daily range): BP systolic 118–133; BP diastolic 63–79
[2018-07-17] MEDS ORDERED: NS 1,000 ML IV SCH (07:45)
[2018-07-17] MEDS ORDERED: diphenhydrAMINE 25MG PO PRIOR TO INFUSION PO ONE (07:45)
[2018-07-17] MEDS ORDERED: FILTER 1.2 MICRON (ADULT TPN/MANNITOL/REMICADE) XX ONE (07:45)
[2018-07-17] MEDS ORDERED: inFLIXimab INJECTION 400 MG in NS 210 ML IV ONE (07:45)
[2018-07-17] MEDS ORDERED: ACETAMINOPHEN 650MG PO PRIOR TO INFUSION PO ONE (07:45)
== END 2018-07-17 10:30 | disposition home or self-care (01) ==
LOC: M INFU 07:17
PROVIDERS: ATTEND Internal Medicine Rheumatology
DX: M45.9 Ankylosing spondylitis of unspecified sites in spine (principal)
CPT/HCPCS: 96413; 96415; J1745

== ENCOUNTER → 2018-07-23 | Outpatient (CLI) | payer BC ==
--- NOTE | 2018-07-24 14:22 | DEXA ---
AP SPINE L1 - L4 1.173 -0.2 LT FEMUR TOTAL 1.103 0.8 LT NECK 1.004 -0.2 RT FEMUR TOTAL 1.110 0.8 RT NECK 0.978 -0.4 TOTAL BODY TOTAL OTHER COMMENTS: Normal bone densitometry of the spine and hips. FOLLOW-UP: Recommendation for the next bone density exam: 5 years. JANEL
== END ==
LOC: M WHC 09:57
PROVIDERS: ATTEND Internal Medicine Rheumatology
DX: Z29.8 Encounter for other specified prophylactic measures (principal)

== ENCOUNTER → 2018-07-26 | Outpatient (REF) | payer BC ==
[2018-07-26 19:27] LABS: BASO # 0.1 10^3/uL (0.0-0.2); BASO % 0.6 % (0.0-1.0); EOS # 0.2 10^3/uL (0.0-0.50); EOS % 1.8 % (0.0-3.0); HEMATOCRIT 41.8 % (42.0-52.0); HEMOGLOBIN 14.3 g/dl (13.5-17.5); LYMPH # 3.9 10^3/uL (1.5-4.5); LYMPH % 35.9 % (24.0-44.0); MEAN CORPUSCULAR HEMOGLOBIN 30.1 pg (27.0-33.0); MEAN CORPUSCULAR HGB CONC 34.2 g/dl (32.0-36.5); MONO # 0.7 10^3/uL (0.0-0.8); MONO % 6.1 % (0.0-5.0); NEUTROPHILS % 55.2 % (36.0-66.0); PLATELET COUNT, AUTOMATED 319 10^3/uL (150-450); RED BLOOD COUNT 4.75 10^6/uL (4.30-6.10); WHITE BLOOD COUNT 10.8 10^3/uL (4.0-10.0)
[2018-07-26 20:02] LABS: ALT/SGPT 45 U/L (12-78); BLOOD UREA NITROGEN 16 MG/DL (7-18); CALCIUM LEVEL 8.7 MG/DL (8.5-10.1); CARBON DIOXIDE LEVEL 28 MEQ/L (21-32); CHLORIDE LEVEL 101 MEQ/L (98-107); CREATININE FOR GFR 1.02 MG/DL (0.70-1.30); GLOMERULAR FILTRATION RATE > 60.0 (>60); GLUCOSE, FASTING 133 MG/DL (70-100); POTASSIUM SERUM 4.2 MEQ/L (3.5-5.1); SODIUM LEVEL 138 MEQ/L (136-145)
[2018-07-26 20:03] LABS: ALBUMIN 4.2 GM/DL (3.2-5.2); BILIRUBIN,TOTAL 0.5 MG/DL (0.2-1.0); C REACTIVE PROTEIN QUANTITATIV 2.52 MG/DL (0.00-0.30); TOTAL PROTEIN 7.8 GM/DL (6.4-8.2)
[2018-07-26 20:09] LABS: HEPATITIS B SURFACE ANTIGEN NEGATIVE (NEGATIVE)
[2018-07-26 20:37] LABS: ERYTHROCYTE SEDIMENTATION RATE 4 mm/hr (0-15)
[2018-07-27 10:35] LABS: HEPATITIS B SURFACE ANTIBODY NEGATIVE (POSITIVE)
== END ==
LOC: M SFHCADAM 18:23
PROVIDERS: ATTEND Internal Medicine Rheumatology
DX: M45.9 Ankylosing spondylitis of unspecified sites in spine (principal); Z79.899 Other long term (current) drug therapy

== ENCOUNTER 2018-08-23 12:38 | Outpatient (CLI) | payer BC ==
[~2018-08-23] VITALS: Ht 157.5 cm; Wt 79.3 kg
[~2018-08-23 12:38] MED LIST changes: -/CELE20CA PO; +CELE1CAP4 PO; +FENT25DI33 TD; -FENT25PA TD
[2018-08-23 12:49] VITALS: BP 126/76
[2018-08-23] MEDS ORDERED: FILTER 1.2 MICRON (ADULT TPN/MANNITOL/REMICADE) XX ONE (13:00)
[2018-08-23] MEDS ORDERED: diphenhydrAMINE 25MG PO PRIOR TO INFUSION PO ONE (13:00)
[2018-08-23] MEDS ORDERED: NS 1,000 ML IV SCH (13:00)
[2018-08-23] MEDS ORDERED: ACETAMINOPHEN 650MG PO PRIOR TO INFUSION PO ONE (13:00)
[2018-08-23] MEDS ORDERED: inFLIXimab INJECTION 400 MG in NS 210 ML IV ONE (13:00)
[2018-08-23 13:35] VITALS: BP 105/52
[2018-08-23 13:50] VITALS: BP 117/58
[2018-08-23 14:05] VITALS: BP 108/62
[2018-08-23 15:45] VITALS: BP 111/63
== END 2018-08-23 15:45 | disposition home or self-care (01) ==
LOC: M INFU 12:38
PROVIDERS: ATTEND Internal Medicine Rheumatology
DX: M45.9 Ankylosing spondylitis of unspecified sites in spine (principal)
CPT/HCPCS: 96413; 96415; J1745

== ENCOUNTER → 2018-09-13 | Outpatient (CLI) | payer BC ==
--- NOTE | 2018-09-30 00:05 | ECWPNPC ---
PATIENT NAME: JOSUE MARTINEZ : 1975 GENDER: MALE VISIT DATE: 09/13/2018 DISCHARGE DATE: 09/13/18 1030 VISIT LOCKED DATE TIME: PHYSICIAN: RHIANNON NASCIMENTO RESOURCE: RHIANNON NASCIMENTO REASON FOR APPOINTMENT 1. 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 PAIN THE PATIENT DESCRIBES THE PAIN... FALL RISK SCREENING: SCREENING :NO FALLS REPORTED IN THE LAST YEAR CURRENT MEDICATIONS TAKING BENADRYL 25 MG TABLET 1 TABLET ORALLY 30 MINUTES PRIOR TO INFUSION TAKING ACETAMINOPHEN 650 MG TABLET EXTENDED RELEASE 1 TABLET ORALLY 30 MINUTES PRIOR TO INFUSION TAKING 0.9% SODIUM CHLORIDE (NS) AT KVO DIRECTED TAKING NAPROXEN 375 MG TABLET 1 TABLET WITH FOOD OR MILK NEEDED EVERY 12 HRS ORALLY 30 ORALLY BID TAKING ZANTAC 300 MG TABLET 1 TABLET AT BEDTIME ORALLY ONCE A DAY TAKING MORPHINE SULFATE 15 MG TABLET 1 -2 TABLET NEEDED ORALLY EVERY 6 HRS PRN PAIN MDD=5 TAKING PROBIOTIC - CAPSULE 1 CAPSULE ORALLY TWICE A DAY TAKING MENS MULTIVITAMIN PLUS TABLET 1 TAB ORALLY DAILY TAKING REMICADE 100 MG SOLUTION RECONSTITUTED INTRAVENOUS EVERY 6 WEEKS, NOTES: EVERY 7 WEEKS TAKING AIRBORNE TABLET EFFERVESCENT ORALLY ONCE DAILY TAKING FERROUS SULFATE 325 (65 FE) MG TABLET 1 TABLET ORALLY ONCE A DAY TAKING MIRALAX - PACKET 1 PACKET MIXED WITH 8 OUNCES OF FLUID ORALLY TWICE DAILY NEEDED TAKING COLACE 100 MG CAPSULE 1 CAPSULE NEEDED ORALLY TWICE A DAY TAKING CLARITIN 10 MG TABLET 1 TABLET ORALLY ONCE A DAY TAKING VOLTAREN 1 % GEL ONE APPLICATION EXTERNALLY APPLY 4 GMS FOUR TIMES DAILY TO BACK, NECK AREA TAKING CAPSAICIN 0.1 % CREAM 1 APPLICATION TO AFFECTED AREA NEEDED EXTERNALLY THREE TIMES A DAY TAKING METFORMIN HCL 1000 MG TABLET 1 TAB ORALLY TWICE DAILY TAKING CYCLOBENZAPRINE HCL 10 MG TABLET 1 TABLET NEEDED ORALLY THREE TIMES A DAY TAKING DRISDOL 17360 UNIT CAPSULE 1 CAPSULE ORALLY WEEKLY TAKING PROZAC 20 MG CAPSULE 3 CAPSULE3 ORALLY ONCE A DAY TAKING DEXILANT 60 MG CAPSULE DELAYED RELEASE 1 CAPSULE ORALLY ONCE A DAY TAKING BYDUREON 2 MG PEN-INJECTOR DIRECTED SUBCUTANEOUS WEEKLY TAKING QUETIAPINE FUMARATE 200 MG TABLET 1 TABLET ORALLY ONCE A DAY NOT-TAKING BENADRYL ALLERGY 25 MG TABLET 1 TABLET ORALLY EVERY 6 HRS NEEDED, NOTES: DUPLICATE MEDICATION LIST REVIEWED AND RECONCILED WITH THE PATIENT PAST MEDICAL HISTORY GERD, 03/05 EGD IRREG Z LINE, REINDL CHRONIC LOW BACK PAIN (INJURED AT WORK) - SUMMER 2009 VIT D DEF FE DEF ANEMIA FORMER SMOKER, QUIT 01/02, SMOKED 18 Y, 1/2 PPD ANKYLOSING SPONDYLITIS - DR SOUZA DX 03/05 02/03 CT CHEST 8.5 MM CAVITARY LESION(LIKELY ABSCESS) 04/05 - PER PULM NO FURTHER IMAGING REQUIRED DM2, 09/06 ALLERGIES N.K.D.A. SURGICAL HISTORY DENIES PAST SURGICAL HISTORY FAMILY HISTORY FATHER: 65 YRS, DIAGNOSED WITH OTHER MOTHER: ALIVE 65 YRS, DIABETES, OTHER IN 6 SIBLINGS: ALIVE SON(S): ALIVE 13 YRS DAUGHTER(S): ALIVE 4 BROTHER(S) , 1 SISTER(S) . 1 SON(S) , 2 DAUGHTER(S) - HEALTHY. YOUNGEST BROTHER DIABETIC, OLDEST SISTER DIABETIC. SOCIAL HISTORY GENERAL: TOBACCO USE ARE YOU A:NONSMOKER HIV / HEP-C SCREENING HIV TEST OFFERED TO PATIENT:YES DATE OFFERED:08/30/2016 TEST ACCEPTED:NO HEP-C TEST OFFERED TO PATIENT:YES DATE OFFERED:08/30/2016 REASON:PATIENT DECLINED TEST ACCEPTED:NO REASON:PATIENT DECLINED EDUCATION LEVEL OF EDUCATION:FINISHED HIGH SCHOOL DIET: REGULAR. LANGUAGE LANGUAGES SPOKEN:CHILEAN DOMESTIC VIOLENCE DO YOU FEEL SAFE IN YOUR ENVIRONMENT?YES NEW PATIENT PAIN DIARY TODAY'S VISIT NOTES, FROM 0-10, WHAT LEVEL IS YOUR PAIN TODAY? 0. BMI CARE GOAL FOLLOW-UP ABOVE NORMAL BMI FOLLOW-UPDIETARY MANAGEMENT EDUCATION, GUIDANCE, AND COUNSELING RECREATIONAL DRUG USE DRUG USE?NO EXERCISE: NONE. 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?NO GRANITE CUTTER APPRENTICE NEEDED?NO LUNG CANCER SCREENING SMOKING STATUS:NON SMOKER PAIN CLINIC PFS, CLERGY, PUBLIC HEALTH REFERRALS PFS REFERRAL NEEDED?NO CLERGY REFERRAL NEEDED?NO PUBLIC HEALTH REFERRAL NEEDED?NO WAS THE PROVIDER NOTIFIED OF ANY PERTINENT INFO?NO HAS THE PATIENT BEEN EDUCATED REGARDING HIS/HER PLAN OF CARE?YES TPI REVIEWED HAS THE PATIENT BEEN EDUCATED REGARDING PAIN, THE RISK FOR PAIN, THE IMPORTANCE OF EFFECTIVE PAIN MANAGEMENT, AND THE PAIN ASSESSMENT PROCESS?YES LATEX QUESTIONNAIRE LATEX ALLERGY : HAVE YOU EVER DEVELOPED ANY TYPE OF REACTION AFTER HANDLING LATEX PRODUCTS SUCH RUBBER GLOVES, CONDOMS, DIAPHRAGMS, BALLOONS, SOCKS, OR UNDERWEAR?NO LATEX ALLERGY : HAVE YOU EVER DEVELOPED ANY TYPE OF REACTION DURING OR AFTER DENTAL APPOINTMENT, VAGINAL/RECTAL EXAMINATION, SURGICAL PROCEDURE, OR ANY OTHER EXPOSURE?NO DATE ASKED : 08/15/2018 LATEX RISK : HAVE YOU EVER HAD ANY DIFFICULTY BREATHING OR HIVES AFTER EATING OR HANDLING ANY FRUITS, OR VEGETABLES; SUCH KIWI, BANANAS, STONE FRUITS, OR CHESTNUTSNO LATEX RISK : DO YOU HAVE A PREVIOUS PERSONAL HISTORY OF MORE THAN NINE SURGERIES, SPINA BIFIDA, OR REPEATED CATHERTIZATIONS? NO LATEX RISK : ARE YOU FREQUENTLY EXPOSED TO LATEX PRODUCTS IN YOUR OCCUPATION?NO CAFFEINE CAFFEINE USE?YES ADVANCE DIRECTIVE ADVANCE DIRECTIVE DISCUSSED WITH PATIENT:YES PATIENT DECLINES HCP INFORMATION. QUAKER [id number] NONE MARITAL STATUS: . ALCOHOL SCREENING DID YOU HAVE A DRINK CONTAINING ALCOHOL IN THE PAST YEAR?YES HOW OFTEN DID YOU HAVE SIX OR MORE DRINKS ON ONE OCCASION IN THE PAST YEAR?NEVER (0 POINTS) HOW MANY DRINKS DID YOU HAVE ON A TYPICAL DAY WHEN YOU WERE DRINKING IN THE PAST YEAR?1 OR 2 (0 POINTS) HOW OFTEN DID YOU HAVE A DRINK CONTAINING ALCOHOL IN THE PAST YEAR?MONTHLY OR LESS (1 POINT) POINTS1 INTERPRETATIONNEGATIVE SEXUAL HX HAD SEX IN THE LAST 12 MONTHS (VAGINAL, ORAL, OR ANAL)?YES WITHWOMEN ONLY USE PROTECTION?NO HAVE YOU EVER HAD AN STD?NO REVIEWED WITH PATIENT 03/15/18 9960 JSREVIEWED WITH PATIENT 09/13/18 0001 JS. HOSPITALIZATION/MAJOR DIAGNOSTIC PROCEDURE DENIES PAST HOSPITALIZATION REVIEW OF SYSTEMS REVIEWED BY: PROVIDER: RHIANNON JOLLY . CONSTITUTIONAL: ANY CHANGE IN YOUR MEDICAL CONDITION? NO . CHILLS NO . FEVER NO . INFECTION: DO YOU HAVE NEW INFECTIONS? NO . DO YOU HAVE HISTORY OF MRSA? NO . MUSCULOSKELETAL: ANY NEW PATTERNS OF PAIN OR NUMBNESS? NO . GASTROENTEROLOGY: ANY NEW CHANGE IN BOWEL CONTROL? NO . GENITOURINARY: ANY NEW CHANGE IN BLADDER CONTROL? NO . IS THERE A CHANCE YOU COULD BE ? NO . HEMATOLOGY/LYMPH: DO YOU TAKE ANY BLOOD THINNERS? (FOR EXAMPLE- COUMADIN, PLAVIX, AGGRENOX, PLATEL, PRADAXA, OR XARELTO) NO . WHEN WAS YOUR LAST DOSE? DATE: TIME: . NEUROLOGY: HAVE YOU FALLEN IN THE PAST 12 MONTHS? NO . ANY NEW EXTREMITY NUMBNESS OR WEAKNESS? NO, STATES NUMBNESS TO RIGHT FINGERS AND ARM, STATES NOT NEW . CARDIOLOGY: DO YOU HAVE A PACEMAKER OR DEFIBRILLATOR? NO . RESPIRATORY: HAVE YOU BEEN SICK IN THE PAST WEEK? YES, STATES CHEST CONGESTION, IMPROVING BUT STILL THERE . FEVER YES . FLU LIKE SYMPTOMS? NO . COUGH NO . INTEGUMENTARY: DO YOU HAVE ANY RASHES OR OPEN SORES? NO . ALLERGIC/IMMUNO: ARE YOU ALLERGIC TO IV DYE? NO . ANY NEW ALLERGIES? NO . PSYCHIATRIC: DO YOU HAVE THOUGHTS OF HURTING YOURSELF OR SOMEONE ELSE? NO . ARE YOU ABUSED, NEGLECTED, OR IN AN UNSAFE ENVIRONMENT? NO . ENDOCRINOLOGY: ARE YOU DIABETIC? YES . OTHER: DO YOU NEED ANY PRESCRIPTIONS? NO . IF YES, PLEASE LIST: ____ . ANY NEW PROBLEMS WITH YOUR MEDICATIONS? NO . WHEN DID YOU LAST EAT? ____ . WHEN DID YOU LAST DRINK? ____ . WHAT DID YOU LAST DRINK? ____ . NAME OF PERSON DRIVING YOU HOME? ____ . DO YOU HAVE ANY OTHER QUESTIONS OR CONCERNS NO . VITAL SIGNS WT 173.6 LBS, HT 62 IN, BMI 31.75 INDEX, BP 110/70 MM HG, HR 87 /MIN, RR 18 /MIN, TEMP 98.8 F, OXYGEN SAT % 95%, SAFE IN ENV? (Y/N) YES, NA INITIALS AW 0928, REVIEWED BY: JS. EXAMINATION GENERAL EXAMINATION: GENERAL APPEARANCE:AWAKE,ALERT ,PLEAASANT . PSYCHAFFECT NORMAL . LUNGS:LUNG EARLY ARE CLEAR TO AUSCULTATION BILATERALLY. GOOD MOVEMENT OF AIR . HEART:S1, S2 IN A REGULAR RATE AND RHYTHM. NO SIGNIFICANT MURMURS, RUBS OR GALLOPS NOTED . 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 (REF #[id number] ) BRINGS IN MEDICATIONS WHICH IS APPROPRIATE FOR WHAT WAS DISPENSED. RECENT URINE TOXICOLOGY REVIEWED. NO UNAUTHORIZED MEDICATIONS. NO ILLICIT SUBSTANCES AND PRESCRIBED MEDICATIONS WERE PRESENT. , RISKS AND BENEFITS OF NARCOTIC/OPIOD MEDICATIONS WERE REVIEWED WITH PATIENT - THIS INCLUDES BUT IS NOT LIMITED TO RISK OF DEPENDANCE/DEVELOPMENT OF ADDICTION, MOOD DISTURBANCE AND DEPRESSION, OSTEOPOROSIS, HORMONAL AND LABIDAL CHANGES, RESPIRATORY DEPRESSION AND . PATIENT IS ADVISED NOT TO DRIVE OR DRINK ALCOHOL WHILE ON THESE MEDICATIONS. PROCEDURE CODES FA211 ESTABILISHED PATIENT [facility] CHARGE DISPOSITION & COMMUNICATION FOLLOW UP 2 MONTHS ELECTRONICALLY SIGNED BY RIK PEÑA ON 09/29/2018 AT 08:16 AM EDT DISCLAIMER : THIS IS A VISIT SUMMARY EXTRACTED FROM THE [employer] CHART. IT IS NOT A COPY OF THE [employer] PROGRESS NOTE. JANEL
== END ==
LOC: M PAIN 09:00
PROVIDERS: ATTEND Nurse Practitioner Family
DX: M45.0 Ankylosing spondylitis of multiple sites in spine (principal); M25.512 Pain in left shoulder; G89.29 Other chronic pain; K21.9 Gastro-esophageal reflux disease without esophagitis; D50.9 Iron deficiency anemia, unspecified; Z87.891 Personal history of nicotine dependence; E11.9 Type 2 diabetes mellitus without complications; Z79.84 Long term (current) use of oral hypoglycemic drugs; Z79.899 Other long term (current) drug therapy

== ENCOUNTER → 2018-09-18 | Outpatient (REF) | payer BC ==
[2018-09-18 20:13] LABS: BASO # 0.1 10^3/uL (0.0-0.2); BASO % 0.6 % (0.0-1.0); EOS # 0.2 10^3/uL (0.0-0.50); EOS % 2.6 % (0.0-3.0); HEMATOCRIT 44.7 % (42.0-52.0); HEMOGLOBIN 14.8 g/dl (13.5-17.5); LYMPH # 3.7 10^3/uL (1.5-4.5); MEAN CORPUSCULAR HEMOGLOBIN 29.6 pg (27.0-33.0); MEAN CORPUSCULAR HGB CONC 33.1 g/dl (32.0-36.5); MEAN CORPUSCULAR VOLUME 89.4 fl (80.0-96.0); MONO # 0.8 10^3/uL (0.0-0.8); MONO % 8.1 % (0.0-5.0); NEUTROPHILS # 4.6 10^3/uL (1.8-7.7); NEUTROPHILS % 49.3 % (36.0-66.0); PLATELET COUNT, AUTOMATED 380 10^3/uL (150-450); WHITE BLOOD COUNT 9.4 10^3/uL (4.0-10.0)
[2018-09-18 20:31] LABS: ALBUMIN 4.1 GM/DL (3.2-5.2); ALT/SGPT 37 U/L (12-78); BILIRUBIN,TOTAL 0.4 MG/DL (0.2-1.0); BLOOD UREA NITROGEN 11 MG/DL (7-18); C REACTIVE PROTEIN QUANTITATIV 2.72 MG/DL (0.00-0.30); CALCIUM LEVEL 9.1 MG/DL (8.5-10.1); CARBON DIOXIDE LEVEL 31 MEQ/L (21-32); CHLORIDE LEVEL 100 MEQ/L (98-107); GLOMERULAR FILTRATION RATE > 60.0 (>60); GLUCOSE, FASTING 96 MG/DL (70-100); POTASSIUM SERUM 4.3 MEQ/L (3.5-5.1); SODIUM LEVEL 136 MEQ/L (136-145); TOTAL PROTEIN 7.8 GM/DL (6.4-8.2)
[2018-09-18 20:57] LABS: ERYTHROCYTE SEDIMENTATION RATE 6 mm/hr (0-15)
== END ==
LOC: M LABDRWAD 19:22
PROVIDERS: ATTEND Internal Medicine Rheumatology
DX: M45.9 Ankylosing spondylitis of unspecified sites in spine (principal)

== ENCOUNTER → 2018-09-18 | Outpatient (REF) | payer BC ==
[2018-09-18 15:46] LABS: ALT/SGPT 34 U/L (12-78); BILIRUBIN,TOTAL 0.5 MG/DL (0.2-1.0); BLOOD UREA NITROGEN 11 MG/DL (7-18); CALCIUM LEVEL 8.9 MG/DL (8.5-10.1); CARBON DIOXIDE LEVEL 29 MEQ/L (21-32); CHLORIDE LEVEL 103 MEQ/L (98-107); CHOLESTEROL LEVEL 216 MG/DL (<200); CHOLESTEROL RISK RATIO 5.684 (<5); CREATININE FOR GFR 0.83 MG/DL (0.70-1.30); GLOMERULAR FILTRATION RATE > 60.0 (>60); GLUCOSE, FASTING 101 MG/DL (70-100); HDL CHOLESTEROL 38 MG/DL (>40); LDL CHOLESTEROL 144 MG/DL (<100); NON-HDL-C 178 MG/DL; POTASSIUM SERUM 4.3 MEQ/L (3.5-5.1); SODIUM LEVEL 138 MEQ/L (136-145); TOTAL 25(OH) VITAMIN D 46.7 NG/ML (30.0-100.0); TOTAL PROTEIN 7.5 GM/DL (6.4-8.2); TRIGLYCERIDES LEVEL 172 MG/DL (<150)
[2018-09-18 15:53] LABS: HEMOGLOBIN A1c 5.7 %
== END ==
LOC: M SFHCADAM 14:08
PROVIDERS: ATTEND Physician Assistant Medical
DX: E11.9 Type 2 diabetes mellitus without complications (principal); E55.9 Vitamin D deficiency, unspecified

== ENCOUNTER → 2018-11-13 | Outpatient (CLI) | payer BC ==
--- NOTE | 2018-11-28 02:11 | ECWPNPC ---
PATIENT NAME: JOSUE MARTINEZ : 1975 GENDER: MALE VISIT DATE: 11/13/2018 DISCHARGE DATE: 11/13/18 1028 VISIT LOCKED DATE TIME: PHYSICIAN: RHIANNON NASCIMENTO RESOURCE: RHIANNON NASCIMENTO REASON FOR APPOINTMENT 1. 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 PAIN THE PATIENT DESCRIBES THE PAIN... THE PATIENT DESCRIBES THE PAIN... FALL RISK SCREENING: SCREENING :NO FALLS REPORTED IN THE LAST YEAR CURRENT MEDICATIONS TAKING NAPROXEN 375 MG TABLET 1 TABLET WITH FOOD OR MILK NEEDED EVERY 12 HRS ORALLY 30 ORALLY BID TAKING ZANTAC 300 MG TABLET 1 TABLET AT BEDTIME ORALLY ONCE A DAY TAKING PROBIOTIC - CAPSULE 1 CAPSULE ORALLY TWICE A DAY TAKING MENS MULTIVITAMIN PLUS TABLET 1 TAB ORALLY DAILY TAKING REMICADE 100 MG SOLUTION RECONSTITUTED INTRAVENOUS EVERY 6 WEEKS, NOTES: EVERY 7 WEEKS TAKING AIRBORNE TABLET EFFERVESCENT ORALLY ONCE DAILY TAKING FERROUS SULFATE 325 (65 FE) MG TABLET 1 TABLET ORALLY ONCE A DAY TAKING MIRALAX - PACKET 1 PACKET MIXED WITH 8 OUNCES OF FLUID ORALLY TWICE DAILY NEEDED TAKING COLACE 100 MG CAPSULE 1 CAPSULE NEEDED ORALLY TWICE A DAY TAKING CLARITIN 10 MG TABLET 1 TABLET ORALLY ONCE A DAY TAKING VOLTAREN 1 % GEL ONE APPLICATION EXTERNALLY APPLY 4 GMS FOUR TIMES DAILY TO BACK, NECK AREA TAKING CAPSAICIN 0.1 % CREAM 1 APPLICATION TO AFFECTED AREA NEEDED EXTERNALLY THREE TIMES A DAY TAKING METFORMIN HCL 1000 MG TABLET 1 TAB ORALLY TWICE DAILY TAKING CYCLOBENZAPRINE HCL 10 MG TABLET 1 TABLET NEEDED ORALLY THREE TIMES A DAY TAKING DRISDOL 70687 UNIT CAPSULE 1 CAPSULE ORALLY WEEKLY TAKING PROZAC 20 MG CAPSULE 3 CAPSULE3 ORALLY ONCE A DAY TAKING DEXILANT 60 MG CAPSULE DELAYED RELEASE 1 CAPSULE ORALLY ONCE A DAY TAKING BYDUREON 2 MG PEN-INJECTOR DIRECTED SUBCUTANEOUS WEEKLY TAKING QUETIAPINE FUMARATE 200 MG TABLET 1 TABLET ORALLY ONCE A DAY TAKING SIMVASTATIN 40 MG TABLET 1 TABLET IN THE EVENING ORALLY ONCE A DAY TAKING MS CONTIN 30 MG TABLET EXTENDED RELEASE 1 TABLET ORALLY EVERY 12 HRS MDD2 TAKING MORPHINE SULFATE 15 MG TABLET 1 TAB ORALLY Q 4-6H PRN MDD5 NOT-TAKING BENADRYL 25 MG TABLET 1 TABLET ORALLY 30 MINUTES PRIOR TO INFUSION NOT-TAKING ACETAMINOPHEN 650 MG TABLET EXTENDED RELEASE 1 TABLET ORALLY 30 MINUTES PRIOR TO INFUSION NOT-TAKING 0.9% SODIUM CHLORIDE (NS) AT [facility] DIRECTED MEDICATION LIST REVIEWED AND RECONCILED WITH THE PATIENT PAST MEDICAL HISTORY GERD, 11/05 EGD VARIABLE Z LINE, SMALL HH, OTHERWISE NORMAL, REINDL CHRONIC LOW BACK PAIN (INJURED AT WORK) - SUMMER 2009 - PAIN CLINIC [facility] VIT D DEF FE DEF ANEMIA FORMER SMOKER, QUIT 01/02, SMOKED 18 Y, 1/2 PPD ANKYLOSING SPONDYLITIS - DR SOUZA DX 03/05, [facility] RHEUM 02/03 CT CHEST 8.5 MM CAVITARY LESION(LIKELY ABSCESS) 04/05 - PER PULM NO FURTHER IMAGING REQUIRED DM2, 09/06 PTSD/INSOMNIA/DEPRESSION ALLERGIC RHINITIS ALLERGIES N.K.D.A. SURGICAL HISTORY NO SURGICAL HISTORY DOCUMENTED. FAMILY HISTORY FATHER: 65 YRS, AGENT ORANGE MOTHER: ALIVE 63 YRS, DM2, THYROID PROBLEMS SIBLINGS: ALIVE SON(S): ALIVE 16 YRS, NO CONTACT WITH SON DAUGHTER(S): ALIVE, 2001 - HEALTHY 2007 - HEALTHY 4 BROTHER(S) , 1 SISTER(S) . 1 SON(S) , 2 DAUGHTER(S) - HEALTHY. SOCIAL HISTORY GENERAL: TOBACCO USE ARE YOU A:NONSMOKER HIV / HEP-C SCREENING HIV TEST OFFERED TO PATIENT:YES DATE OFFERED:08/30/2016 TEST ACCEPTED:NO HEP-C TEST OFFERED TO PATIENT:YES DATE OFFERED:08/30/2016 REASON:PATIENT DECLINED TEST ACCEPTED:NO REASON:PATIENT DECLINED OTHERS AT HOME: , MIL, DGT, STEP DGTS, STEP GR DGT AND STEP GR SON. EDUCATION LEVEL OF EDUCATION:FINISHED HIGH SCHOOL DIET: REGULAR. LANGUAGE LANGUAGES SPOKEN:HAITIAN DOMESTIC VIOLENCE DO YOU FEEL SAFE IN YOUR ENVIRONMENT?YES NEW PATIENT PAIN DIARY TODAY'S VISIT NOTES, FROM 0-10, WHAT LEVEL IS YOUR PAIN TODAY? 0. BMI CARE GOAL FOLLOW-UP ABOVE NORMAL BMI FOLLOW-UPDIETARY MANAGEMENT EDUCATION, GUIDANCE, AND COUNSELING RECREATIONAL DRUG USE DRUG USE?NO EXERCISE: NONE. 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?NO LUNG CANCER SCREENING SMOKING STATUS:NON SMOKER PAIN CLINIC PFS, CLERGY, PUBLIC HEALTH REFERRALS PFS REFERRAL NEEDED?NO CLERGY REFERRAL NEEDED?NO PUBLIC HEALTH REFERRAL NEEDED?NO WAS THE PROVIDER NOTIFIED OF ANY PERTINENT INFO?NO HAS THE PATIENT BEEN EDUCATED REGARDING HIS/HER PLAN OF CARE?YES TPI REVIEWED HAS THE PATIENT BEEN EDUCATED REGARDING PAIN, THE RISK FOR PAIN, THE IMPORTANCE OF EFFECTIVE PAIN MANAGEMENT, AND THE PAIN ASSESSMENT PROCESS?YES LATEX QUESTIONNAIRE LATEX ALLERGY : HAVE YOU EVER DEVELOPED ANY TYPE OF REACTION AFTER HANDLING LATEX PRODUCTS SUCH RUBBER GLOVES, CONDOMS, DIAPHRAGMS, BALLOONS, SOCKS, OR UNDERWEAR?NO LATEX ALLERGY : HAVE YOU EVER DEVELOPED ANY TYPE OF REACTION DURING OR AFTER DENTAL APPOINTMENT, VAGINAL/RECTAL EXAMINATION, SURGICAL PROCEDURE, OR ANY OTHER EXPOSURE?NO DATE ASKED : 08/15/2018 LATEX RISK : HAVE YOU EVER HAD ANY DIFFICULTY BREATHING OR HIVES AFTER EATING OR HANDLING ANY FRUITS, OR VEGETABLES; SUCH KIWI, BANANAS, STONE FRUITS, OR CHESTNUTSNO LATEX RISK : DO YOU HAVE A PREVIOUS PERSONAL HISTORY OF MORE THAN NINE SURGERIES, SPINA BIFIDA, OR REPEATED CATHERTIZATIONS? NO LATEX RISK : ARE YOU FREQUENTLY EXPOSED TO LATEX PRODUCTS IN YOUR OCCUPATION?NO CAFFEINE CAFFEINE USE?YES ADVANCE DIRECTIVE ADVANCE DIRECTIVE DISCUSSED WITH PATIENT:YES PATIENT DECLINES HCP INFORMATION. 11/13/18 BAHAI [id number] NONE MARITAL STATUS: . ALCOHOL SCREENING DID YOU HAVE A DRINK CONTAINING ALCOHOL IN THE PAST YEAR?YES HOW OFTEN DID YOU HAVE SIX OR MORE DRINKS ON ONE OCCASION IN THE PAST YEAR?NEVER (0 POINTS) HOW MANY DRINKS DID YOU HAVE ON A TYPICAL DAY WHEN YOU WERE DRINKING IN THE PAST YEAR?1 OR 2 (0 POINTS) HOW OFTEN DID YOU HAVE A DRINK CONTAINING ALCOHOL IN THE PAST YEAR?MONTHLY OR LESS (1 POINT) POINTS1 INTERPRETATIONNEGATIVE SEXUAL HX HAD SEX IN THE LAST 12 MONTHS (VAGINAL, ORAL, OR ANAL)?YES WITHWOMEN ONLY USE PROTECTION?NO HAVE YOU EVER HAD AN STD?NO REVIEWED WITH PATIENT 03/15/18 0936 JSREVIEWED WITH PATIENT 09/13/18 0938 JSREVIEWED WITH PT 11/13/18 1010 BV. HOSPITALIZATION/MAJOR DIAGNOSTIC PROCEDURE NO HOSPITALIZATION HISTORY. REVIEW OF SYSTEMS REVIEWED BY: PROVIDER: RHIANNON JOLLY . CONSTITUTIONAL: ANY CHANGE IN YOUR MEDICAL CONDITION? NO . CHILLS NO . FEVER NO . INFECTION: DO YOU HAVE NEW INFECTIONS? NO . DO YOU HAVE HISTORY OF MRSA? NO . MUSCULOSKELETAL: ANY NEW PATTERNS OF PAIN OR NUMBNESS? NO . GASTROENTEROLOGY: ANY NEW CHANGE IN BOWEL CONTROL? NO . GENITOURINARY: ANY NEW CHANGE IN BLADDER CONTROL? NO . IS THERE A CHANCE YOU COULD BE ? NO . HEMATOLOGY/LYMPH: DO YOU TAKE ANY BLOOD THINNERS? (FOR EXAMPLE- COUMADIN, PLAVIX, AGGRENOX, PLATEL, PRADAXA, OR XARELTO) NO . WHEN WAS YOUR LAST DOSE? DATE: TIME: . NEUROLOGY: HAVE YOU FALLEN IN THE PAST 12 MONTHS? NO . ANY NEW EXTREMITY NUMBNESS OR WEAKNESS? NO . CARDIOLOGY: DO YOU HAVE A PACEMAKER OR DEFIBRILLATOR? NO . RESPIRATORY: HAVE YOU BEEN SICK IN THE PAST WEEK? NO . FEVER NO . FLU LIKE SYMPTOMS? NO . COUGH PT WAS TREATED FOR BRONCHITIS A FEW WEEKS AGO, STATES HE STILL HAS A MILD INTERMITTENT DRY COUGH THAT IS IMPROVING . INTEGUMENTARY: DO YOU HAVE ANY RASHES OR OPEN SORES? NO . ALLERGIC/IMMUNO: ARE YOU ALLERGIC TO IV DYE? NO . ANY NEW ALLERGIES? NO . PSYCHIATRIC: DO YOU HAVE THOUGHTS OF HURTING YOURSELF OR SOMEONE ELSE? NO . ARE YOU ABUSED, NEGLECTED, OR IN AN UNSAFE ENVIRONMENT? NO . ENDOCRINOLOGY: ARE YOU DIABETIC? YES, ON MEDICATION . OTHER: DO YOU NEED ANY PRESCRIPTIONS? NO . IF YES, PLEASE LIST: ____ . ANY NEW PROBLEMS WITH YOUR MEDICATIONS? NO . WHEN DID YOU LAST EAT? ____ . WHEN DID YOU LAST DRINK? ____ . WHAT DID YOU LAST DRINK? ____ . NAME OF PERSON DRIVING YOU HOME? ____ . DO YOU HAVE ANY OTHER QUESTIONS OR CONCERNS NO . VITAL SIGNS WT 174.2 LBS, HT 62 IN, BMI 31.86 INDEX, BP 116/75 MM HG, HR 84 /MIN, RR 18 /MIN, TEMP 98.0 F, OXYGEN SAT % 95%, NA INITIALS AW 1004, REVIEWED BY: BV. EXAMINATION GENERAL EXAMINATION: GENERALAWAKE,ALERT ,PLEAASANT . PSYCHAFFECT NORMAL . LUNGS:LUNG EARLY ARE CLEAR TO AUSCULTATION BILATERALLY. GOOD MOVEMENT OF AIR . HEART:S1, S2 IN A REGULAR RATE AND RHYTHM. NO SIGNIFICANT MURMURS, RUBS OR GALLOPS NOTED . 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 BRINGS IN MEDICATIONS WHICH IS APPROPRIATE FOR WHAT WAS DISPENSED. RECENT URINE TOXICOLOGY REVIEWED. NO UNAUTHORIZED MEDICATIONS. NO ILLICIT SUBSTANCES AND PRESCRIBED MEDICATIONS WERE PRESENT. , RISKS AND BENEFITS OF NARCOTIC/OPIOD MEDICATIONS WERE REVIEWED WITH PATIENT - THIS INCLUDES BUT IS NOT LIMITED TO RISK OF DEPENDANCE/DEVELOPMENT OF ADDICTION, MOOD DISTURBANCE AND DEPRESSION, OSTEOPOROSIS, HORMONAL AND LABIDAL CHANGES, RESPIRATORY DEPRESSION AND . PATIENT IS ADVISED NOT TO DRIVE OR DRINK ALCOHOL WHILE ON THESE MEDICATIONS. PROCEDURE CODES FA211 ESTABILISHED PATIENT [facility] FACILITY CHARGE DISPOSITION & COMMUNICATION FOLLOW UP 3 MONTHS (REASON: MED MGMNT) ELECTRONICALLY SIGNED BY RIK PEÑA ON 11/27/2018 AT 10:05 AM EDT DISCLAIMER : THIS IS A VISIT SUMMARY EXTRACTED FROM THE [employer] CHART. IT IS NOT A COPY OF THE [employer] PROGRESS NOTE. MTDD
== END ==
LOC: M PAIN 09:45
PROVIDERS: ATTEND Nurse Practitioner Family
DX: M45.0 Ankylosing spondylitis of multiple sites in spine (principal); K21.9 Gastro-esophageal reflux disease without esophagitis; E55.9 Vitamin D deficiency, unspecified; D50.9 Iron deficiency anemia, unspecified; Z87.891 Personal history of nicotine dependence; E11.9 Type 2 diabetes mellitus without complications; F43.10 Post-traumatic stress disorder, unspecified; G47.00 Insomnia, unspecified; F32.9 Major depressive disorder, single episode, unspecified; J30.9 Allergic rhinitis, unspecified; Z79.84 Long term (current) use of oral hypoglycemic drugs; Z79.891 Long term (current) use of opiate analgesic; Z79.899 Other long term (current) drug therapy

== ENCOUNTER → 2018-11-14 | Outpatient (CLI) | payer BC ==
--- NOTE | 2018-11-14 19:08 | REP ---
PA and lateral chest: Comparison is 05/18/2017. The lung bailey are clear. The cardiac size is normal. The mau, mediastinum, and skeletal structures are unremarkable. Impression: Negative PA and lateral chest. The previous some right upper lobe infiltrate has resolved. Electronically Signed by Best Rodriguez MD 11/14/2018 07:00 P
== END ==
LOC: M ADAMS 18:29
PROVIDERS: ATTEND Internal Medicine Rheumatology
DX: R06.02 Shortness of breath (principal)

== ENCOUNTER → 2018-11-30 | Outpatient (CLI) | payer BC ==
[~2018-11-30] MED LIST changes: -MORP-38 PO; +MORP-69 PO; -TRAZ-163 PO; +TRAZ-257 PO
[2018-11-30 20:22] LABS: BASO # 0.1 10^3/uL (0.0-0.2); BASO % 0.6 % (0.0-1.0); EOS # 0.4 10^3/uL (0.0-0.50); EOS % 3.5 % (0.0-3.0); HEMATOCRIT 43.2 % (42.0-52.0); HEMOGLOBIN 14.4 g/dl (13.5-17.5); LYMPH # 2.9 10^3/uL (1.5-4.5); MEAN CORPUSCULAR HEMOGLOBIN 30.2 pg (27.0-33.0); MEAN CORPUSCULAR HGB CONC 33.3 g/dl (32.0-36.5); MEAN CORPUSCULAR VOLUME 90.6 fl (80.0-96.0); MONO # 0.7 10^3/uL (0.0-0.8); MONO % 6.6 % (0.0-5.0); NEUTROPHILS % 62.9 % (36.0-66.0); PLATELET COUNT, AUTOMATED 299 10^3/uL (150-450); RED BLOOD COUNT 4.77 10^6/uL (4.30-6.10); WHITE BLOOD COUNT 11.1 10^3/uL (4.0-10.0)
[2018-11-30 20:34] LABS: ALBUMIN 3.9 GM/DL (3.2-5.2); ALT/SGPT 48 U/L (12-78); BILIRUBIN,TOTAL 0.2 MG/DL (0.2-1.0); BLOOD UREA NITROGEN 11 MG/DL (7-18); C REACTIVE PROTEIN QUANTITATIV 0.58 MG/DL (0.00-0.30); CALCIUM LEVEL 9.2 MG/DL (8.5-10.1); CARBON DIOXIDE LEVEL 31 MEQ/L (21-32); CHLORIDE LEVEL 103 MEQ/L (98-107); CREATININE FOR GFR 0.86 MG/DL (0.70-1.30); GLOMERULAR FILTRATION RATE > 60.0 (>60); GLUCOSE, FASTING 100 MG/DL (70-100); POTASSIUM SERUM 4.1 MEQ/L (3.5-5.1); SODIUM LEVEL 140 MEQ/L (136-145); TOTAL PROTEIN 7.6 GM/DL (6.4-8.2)
[2018-11-30 21:00] LABS: ERYTHROCYTE SEDIMENTATION RATE 5 mm/hr (0-15)
== END ==
LOC: M WUC 15:44
PROVIDERS: ATTEND Internal Medicine Rheumatology
DX: M45.9 Ankylosing spondylitis of unspecified sites in spine (principal)

== ENCOUNTER 2018-12-04 12:28 | Outpatient (CLI) | payer BC ==
[~2018-12-04] VITALS: Ht 160 cm; Wt 80.0 kg
[~2018-12-04 12:28] MED LIST changes: +MORP-38 PO; -MORP-69 PO; +TRAZ-163 PO; -TRAZ-257 PO
[2018-12-04] MEDS ORDERED: diphenhydrAMINE INJ 50MG/ML VIAL (J1200) IV PRN (12:45)
[2018-12-04] MEDS ORDERED: methylPREDNISolone INJ 125 MG/2 ML VIAL (J2930) IV PRN (12:45)
[2018-12-04] MEDS ORDERED: FILTER 1.2 MICRON (ADULT TPN/MANNITOL/REMICADE) XX ONE (12:45)
[2018-12-04] MEDS ORDERED: ALBUTEROL SULFATE 2.5 MG/0.5 ML INH NEB SOLN INH PRN (12:45)
[2018-12-04] MEDS ORDERED: EPINEPHrine INJ 1 MG/ML 1ML AMP IM PRN (12:45)
[2018-12-04] MEDS ORDERED: ACETAMINOPHEN 650MG ER TAB (TYLENOL ARTHRITIS) PO ONE (13:00)
[2018-12-04] MEDS ORDERED: NS 1,000 ML IV SCH (13:00)
[2018-12-04] MEDS ORDERED: diphenhydrAMINE 25 MG CAP PO ONE (13:00)
[2018-12-04 13:05] VITALS: BP 123/75
[2018-12-04] MEDS ORDERED: inFLIXimab INJECTION 400 MG in NS 210 ML IV ONE (13:30)
== END 2018-12-04 14:10 | disposition home or self-care (01) ==
LOC: M INFU 12:28
PROVIDERS: ATTEND Internal Medicine Rheumatology
DX: M45.0 Ankylosing spondylitis of multiple sites in spine (principal)
CPT/HCPCS: 96413; J1745

== ENCOUNTER 2019-01-22 12:35 | Outpatient (CLI) | payer BC ==
[~2019-01-22] VITALS: Ht 160 cm; Wt 80.0 kg
[2019-01-22 12:35] VITALS: BP 118/78
[~2019-01-22 12:35] MED LIST changes: -MORP-38 PO; +MORP-69 PO
[2019-01-22] MEDS ORDERED: FILTER 1.2 MICRON (ADULT TPN/MANNITOL/REMICADE) XX ONE (12:45)
[2019-01-22] MEDS ORDERED: diphenhydrAMINE INJ 50MG/ML VIAL (J1200) IV PRN (12:45)
[2019-01-22] MEDS ORDERED: ACETAMINOPHEN 650MG ER TAB (TYLENOL ARTHRITIS) PO ONE (12:45)
[2019-01-22] MEDS ORDERED: EPINEPHrine INJ 1 MG/ML 1ML AMP IM PRN (12:45)
[2019-01-22] MEDS ORDERED: ALBUTEROL SULFATE 2.5 MG/0.5 ML INH NEB SOLN INH PRN (12:45)
[2019-01-22] MEDS ORDERED: methylPREDNISolone INJ 125 MG/2 ML VIAL (J2930) IV PRN (12:45)
[2019-01-22] MEDS ORDERED: NS 1,000 ML IV SCH (12:45)
[2019-01-22] MEDS ORDERED: diphenhydrAMINE 25 MG CAP PO ONE (12:45)
[2019-01-22] MEDS ORDERED: inFLIXimab INJECTION 400 MG in NS 210 ML IV ONE (13:00)
[2019-01-22 14:50] VITALS: BP 112/59
== END 2019-01-22 14:50 | disposition home or self-care (01) ==
LOC: M INFU 12:35
PROVIDERS: ATTEND Internal Medicine Rheumatology
DX: M45.0 Ankylosing spondylitis of multiple sites in spine (principal)
CPT/HCPCS: 96413; J1745

== ENCOUNTER → 2019-02-13 | Outpatient (CLI) | payer BC ==
[~2019-02-13] MED LIST changes: -TRAZ-163 PO; +TRAZ-257 PO
--- NOTE | 2019-03-11 11:54 | ECWPNPC ---
PATIENT NAME: JOSUE MARTINEZ : 1975 GENDER: MALE VISIT DATE: 02/13/2019 DISCHARGE DATE: 02/13/19 1014 VISIT LOCKED DATE TIME: PHYSICIAN: RHIANNON NASCIMENTO RESOURCE: RHIANNON NASCIMENTO REASON FOR APPOINTMENT 1. 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 PAIN THE PATIENT DESCRIBES THE PAIN... THE PATIENT DESCRIBES THE PAIN... THE PATIENT DESCRIBES THE PAIN... FALL RISK SCREENING: SCREENING :NO FALLS REPORTED IN THE LAST YEAR CURRENT MEDICATIONS TAKING NAPROXEN 375 MG TABLET 1 TABLET WITH FOOD OR MILK NEEDED EVERY 12 HRS ORALLY 30 ORALLY BID TAKING ZANTAC 300 MG TABLET 1 TABLET AT BEDTIME ORALLY ONCE A DAY TAKING PROBIOTIC - CAPSULE 1 CAPSULE ORALLY TWICE A DAY TAKING MENS MULTIVITAMIN PLUS TABLET 1 TAB ORALLY DAILY TAKING REMICADE 100 MG SOLUTION RECONSTITUTED INTRAVENOUS EVERY 6 WEEKS, NOTES: EVERY 7 WEEKS TAKING AIRBORNE TABLET EFFERVESCENT ORALLY ONCE DAILY TAKING FERROUS SULFATE 325 (65 FE) MG TABLET 1 TABLET ORALLY ONCE A DAY TAKING MIRALAX - PACKET 1 PACKET MIXED WITH 8 OUNCES OF FLUID ORALLY TWICE DAILY NEEDED TAKING COLACE 100 MG CAPSULE 1 CAPSULE NEEDED ORALLY TWICE A DAY TAKING CLARITIN 10 MG TABLET 1 TABLET ORALLY ONCE A DAY TAKING VOLTAREN 1 % GEL ONE APPLICATION EXTERNALLY APPLY 4 GMS FOUR TIMES DAILY TO BACK, NECK AREA TAKING CAPSAICIN 0.1 % CREAM 1 APPLICATION TO AFFECTED AREA NEEDED EXTERNALLY THREE TIMES A DAY TAKING CYCLOBENZAPRINE HCL 10 MG TABLET 1 TABLET NEEDED ORALLY THREE TIMES A DAY TAKING PROZAC 20 MG CAPSULE 3 CAPSULE3 ORALLY ONCE A DAY TAKING DEXILANT 60 MG CAPSULE DELAYED RELEASE 1 CAPSULE ORALLY ONCE A DAY TAKING QUETIAPINE FUMARATE 200 MG TABLET 1 TABLET ORALLY ONCE A DAY TAKING SIMVASTATIN 40 MG TABLET 1 TABLET IN THE EVENING ORALLY ONCE A DAY TAKING BUDESONIDE 90 MCG/ACT AEROSOL POWDER BREATH ACTIVATED 2 PUFFS INHALATION TWICE A DAY TAKING BYDUREON 2 MG PEN-INJECTOR DIRECTED SUBCUTANEOUS WEEKLY TAKING DRISDOL 40474 UNIT CAPSULE 1 CAPSULE ORALLY WEEKLY TAKING MS CONTIN 30 MG TABLET EXTENDED RELEASE 1 TABLET ORALLY EVERY 12 HRS MDD2 TAKING MORPHINE SULFATE 15 MG TABLET 1 TAB ORALLY Q 4-6H PRN MDD5 TAKING METFORMIN HCL 1000 MG TABLET 1 TAB ORALLY TWICE DAILY NOT-TAKING BENADRYL 25 MG TABLET 1 TABLET ORALLY 30 MINUTES PRIOR TO INFUSION NOT-TAKING ACETAMINOPHEN 650 MG TABLET EXTENDED RELEASE 1 TABLET ORALLY 30 MINUTES PRIOR TO INFUSION NOT-TAKING 0.9% SODIUM CHLORIDE (NS) AT [facility] DIRECTED MEDICATION LIST REVIEWED AND RECONCILED WITH THE PATIENT PAST MEDICAL HISTORY GERD, 11/05 EGD VARIABLE Z LINE, SMALL HH, OTHERWISE NORMAL, REINDL CHRONIC LOW BACK PAIN (INJURED AT WORK) - SUMMER 2009 - PAIN CLINIC [facility] VIT D DEF FE DEF ANEMIA FORMER SMOKER, QUIT 01/02, SMOKED 18 Y, 1/2 PPD ANKYLOSING SPONDYLITIS - DR SOUZA DX 03/05, [facility] RHEUM 02/03 CT CHEST 8.5 MM CAVITARY LESION(LIKELY ABSCESS) 04/05 - PER PULM NO FURTHER IMAGING REQUIRED DM2, 09/06 PTSD/INSOMNIA/DEPRESSION ALLERGIC RHINITIS ALLERGIES N.K.D.A. SURGICAL HISTORY DENIES PAST SURGICAL HISTORY FAMILY HISTORY FATHER: 65 YRS, AGENT ORANGE MOTHER: ALIVE 63 YRS, DM2, THYROID PROBLEMS SIBLINGS: ALIVE SON(S): ALIVE 16 YRS, NO CONTACT WITH SON DAUGHTER(S): ALIVE, 2001 - HEALTHY 2007 - HEALTHY 4 BROTHER(S) , 1 SISTER(S) . 1 SON(S) , 2 DAUGHTER(S) - HEALTHY. SOCIAL HISTORY GENERAL: TOBACCO USE ARE YOU A:NONSMOKER HIV / HEP-C SCREENING HIV TEST OFFERED TO PATIENT:YES DATE OFFERED:08/30/2016 TEST ACCEPTED:NO HEP-C TEST OFFERED TO PATIENT:YES DATE OFFERED:08/30/2016 REASON:PATIENT DECLINED TEST ACCEPTED:NO REASON:PATIENT DECLINED OTHERS AT HOME: , MIL, DGT, STEP DGTS, STEP GR DGT AND STEP GR SON. EDUCATION LEVEL OF EDUCATION:FINISHED HIGH SCHOOL DIET: REGULAR. LANGUAGE LANGUAGES SPOKEN:FRISIAN DOMESTIC VIOLENCE DO YOU FEEL SAFE IN YOUR ENVIRONMENT?YES NEW PATIENT PAIN DIARY TODAY'S VISIT NOTES, FROM 0-10, WHAT LEVEL IS YOUR PAIN TODAY? 0. BMI CARE GOAL FOLLOW-UP ABOVE NORMAL BMI FOLLOW-UPDIETARY MANAGEMENT EDUCATION, GUIDANCE, AND COUNSELING RECREATIONAL DRUG USE DRUG USE?NO EXERCISE: NONE. 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?NO ANESTHESIOLOGY MEDICAL DOCTOR NEEDED?NO LUNG CANCER SCREENING SMOKING STATUS:NON SMOKER PAIN CLINIC PFS, CLERGY, PUBLIC HEALTH REFERRALS PFS REFERRAL NEEDED?NO CLERGY REFERRAL NEEDED?NO PUBLIC HEALTH REFERRAL NEEDED?NO WAS THE PROVIDER NOTIFIED OF ANY PERTINENT INFO?NO HAS THE PATIENT BEEN EDUCATED REGARDING HIS/HER PLAN OF CARE?YES TPI REVIEWED HAS THE PATIENT BEEN EDUCATED REGARDING PAIN, THE RISK FOR PAIN, THE IMPORTANCE OF EFFECTIVE PAIN MANAGEMENT, AND THE PAIN ASSESSMENT PROCESS?YES LATEX QUESTIONNAIRE LATEX ALLERGY : HAVE YOU EVER DEVELOPED ANY TYPE OF REACTION AFTER HANDLING LATEX PRODUCTS SUCH RUBBER GLOVES, CONDOMS, DIAPHRAGMS, BALLOONS, SOCKS, OR UNDERWEAR?NO LATEX ALLERGY : HAVE YOU EVER DEVELOPED ANY TYPE OF REACTION DURING OR AFTER DENTAL APPOINTMENT, VAGINAL/RECTAL EXAMINATION, SURGICAL PROCEDURE, OR ANY OTHER EXPOSURE?NO DATE ASKED : 11/14/2018 LATEX RISK : HAVE YOU EVER HAD ANY DIFFICULTY BREATHING OR HIVES AFTER EATING OR HANDLING ANY FRUITS, OR VEGETABLES; SUCH KIWI, BANANAS, STONE FRUITS, OR CHESTNUTSNO LATEX RISK : DO YOU HAVE A PREVIOUS PERSONAL HISTORY OF MORE THAN NINE SURGERIES, SPINA BIFIDA, OR REPEATED CATHERIZATIONS? NO LATEX RISK : ARE YOU FREQUENTLY EXPOSED TO LATEX PRODUCTS IN YOUR OCCUPATION?NO CAFFEINE CAFFEINE USE?YES ADVANCE DIRECTIVE ADVANCE DIRECTIVE DISCUSSED WITH PATIENT:YES PATIENT DECLINES HCP INFORMATION. JEW [id number] NONE MARITAL STATUS: . ALCOHOL SCREENING DID YOU HAVE A DRINK CONTAINING ALCOHOL IN THE PAST YEAR?YES HOW OFTEN DID YOU HAVE SIX OR MORE DRINKS ON ONE OCCASION IN THE PAST YEAR?NEVER (0 POINTS) HOW MANY DRINKS DID YOU HAVE ON A TYPICAL DAY WHEN YOU WERE DRINKING IN THE PAST YEAR?1 OR 2 (0 POINTS) HOW OFTEN DID YOU HAVE A DRINK CONTAINING ALCOHOL IN THE PAST YEAR?MONTHLY OR LESS (1 POINT) POINTS1 INTERPRETATIONNEGATIVE SEXUAL HX HAD SEX IN THE LAST 12 MONTHS (VAGINAL, ORAL, OR ANAL)?YES WITHWOMEN ONLY USE PROTECTION?NO HAVE YOU EVER HAD AN STD?NO REVIEWED WITH PATIENT 03/15/18 0936 JSREVIEWED WITH PATIENT 09/13/18 0938 JSREVIEWED WITH PT 11/13/18 1010 BV. HOSPITALIZATION/MAJOR DIAGNOSTIC PROCEDURE DENIES PAST HOSPITALIZATION REVIEW OF SYSTEMS REVIEWED BY: PROVIDER: RHIANNON JOLLY . CONSTITUTIONAL: ANY CHANGE IN YOUR MEDICAL CONDITION? NO . CHILLS NO . FEVER NO . INFECTION: DO YOU HAVE NEW INFECTIONS? NO . DO YOU HAVE HISTORY OF MRSA? NO . MUSCULOSKELETAL: ANY NEW PATTERNS OF PAIN OR NUMBNESS? NO . GASTROENTEROLOGY: ANY NEW CHANGE IN BOWEL CONTROL? NO . GENITOURINARY: ANY NEW CHANGE IN BLADDER CONTROL? NO . IS THERE A CHANCE YOU COULD BE ? NO . HEMATOLOGY/LYMPH: DO YOU TAKE ANY BLOOD THINNERS? (FOR EXAMPLE- COUMADIN, PLAVIX, AGGRENOX, PLATEL, PRADAXA, OR XARELTO) NO . WHEN WAS YOUR LAST DOSE? DATE: TIME: . NEUROLOGY: HAVE YOU FALLEN IN THE PAST 12 MONTHS? NO . ANY NEW EXTREMITY NUMBNESS OR WEAKNESS? NO . CARDIOLOGY: DO YOU HAVE A PACEMAKER OR DEFIBRILLATOR? NO . RESPIRATORY: HAVE YOU BEEN SICK IN THE PAST WEEK? YES . FEVER YES, 103 X 1 DAY . FLU LIKE SYMPTOMS? NO . COUGH NO . INTEGUMENTARY: DO YOU HAVE ANY RASHES OR OPEN SORES? NO . ALLERGIC/IMMUNO: ARE YOU ALLERGIC TO IV DYE? NO . ANY NEW ALLERGIES? NO . PSYCHIATRIC: DO YOU HAVE THOUGHTS OF HURTING YOURSELF OR SOMEONE ELSE? NO . ARE YOU ABUSED, NEGLECTED, OR IN AN UNSAFE ENVIRONMENT? NO . ENDOCRINOLOGY: ARE YOU DIABETIC? NO . OTHER: DO YOU NEED ANY PRESCRIPTIONS? NO . IF YES, PLEASE LIST: ____ . ANY NEW PROBLEMS WITH YOUR MEDICATIONS? NO . WHEN DID YOU LAST EAT? ____ . WHEN DID YOU LAST DRINK? ____ . WHAT DID YOU LAST DRINK? ____ . NAME OF PERSON DRIVING YOU HOME? ____ . DO YOU HAVE ANY OTHER QUESTIONS OR CONCERNS NO . VITAL SIGNS WT 179.6 LBS, HT 62 IN, BMI 32.85 INDEX, BP 125/79 MM HG, HR 70 /MIN, RR 18 /MIN, TEMP 97.6 F, OXYGEN SAT % 99%, NA INITIALS AW 0927, REVIEWED BY: EM. EXAMINATION GENERAL EXAMINATION: GENERALAWAKE,ALERT ,PLEAASANT . PSYCHAFFECT NORMAL . LUNGS:LUNG EARLY ARE CLEAR TO AUSCULTATION BILATERALLY. GOOD MOVEMENT OF AIR . HEART:S1, S2 IN A REGULAR RATE AND RHYTHM. NO SIGNIFICANT MURMURS, RUBS OR GALLOPS NOTED . 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 BRINGS IN MEDICATIONS WHICH IS APPROPRIATE FOR WHAT WAS DISPENSED. RECENT URINE TOXICOLOGY REVIEWED. NO UNAUTHORIZED MEDICATIONS. NO ILLICIT SUBSTANCES AND PRESCRIBED MEDICATIONS WERE PRESENT. URINE TOX TODAY, RISKS AND BENEFITS OF NARCOTIC/OPIOD MEDICATIONS WERE REVIEWED WITH PATIENT - THIS INCLUDES BUT IS NOT LIMITED TO RISK OF DEPENDANCE/DEVELOPMENT OF ADDICTION, MOOD DISTURBANCE AND DEPRESSION, OSTEOPOROSIS, HORMONAL AND LABIDAL CHANGES, RESPIRATORY DEPRESSION AND . PATIENT IS ADVISED NOT TO DRIVE OR DRINK ALCOHOL WHILE ON THESE MEDICATIONS. REFERRAL TO:[facility] [place] [facility]ARE[facility]KNOWN REASON:CHRONIC PAIN ASSOCIATED W ANKYLOSING SPONDYLOSIS-CHRONIC NARCOTIC THERAPY PROCEDURE CODES FA211 ESTABILISHED PATIENT [facility] FACILITY CHARGE DISPOSITION & COMMUNICATION FOLLOW UP NO F/U (REASON: REFER TO [place] [facility]) ELECTRONICALLY SIGNED BY RIK PEÑA ON 02/28/2019 AT 01:37 PM EDT DISCLAIMER : THIS IS A VISIT SUMMARY EXTRACTED FROM THE [employer] CHART. IT IS NOT A COPY OF THE [employer] PROGRESS NOTE. MTDD
== END ==
LOC: M PAIN 09:00
PROVIDERS: ATTEND Nurse Practitioner Family
DX: M45.0 Ankylosing spondylitis of multiple sites in spine (principal); Z79.84 Long term (current) use of oral hypoglycemic drugs; Z79.891 Long term (current) use of opiate analgesic; Z79.899 Other long term (current) drug therapy; Z87.891 Personal history of nicotine dependence

== ENCOUNTER 2019-03-12 12:41 | Outpatient (CLI) | payer BC ==
[~2019-03-12] VITALS: Ht 160 cm; Wt 82.0 kg
[~2019-03-12 12:41] MED LIST changes: +TRAZ-163 PO; -TRAZ-257 PO
[2019-03-12] MEDS ORDERED: ACETAMINOPHEN 650MG PO PRIOR TO INFUSION PO ONE (14:00)
[2019-03-12] MEDS ORDERED: diphenhydrAMINE 25MG PO PRIOR TO INFUSION PO ONE (14:00)
[2019-03-12] MEDS ORDERED: inFLIXimab INJECTION 400 MG in NS 210 ML IV ONE (14:00)
[2019-03-12] MEDS ORDERED: FILTER 1.2 MICRON (ADULT TPN/MANNITOL/REMICADE) XX ONE (14:00)
[2019-03-12] MEDS ORDERED: NS 1,000 ML IV SCH (14:00)
== END 2019-03-12 15:15 | disposition home or self-care (01) ==
LOC: M INFU 12:41
PROVIDERS: ATTEND Internal Medicine Rheumatology
DX: M45.9 Ankylosing spondylitis of unspecified sites in spine (principal)
CPT/HCPCS: 96413; J1745

== ENCOUNTER → 2019-04-02 | Outpatient (REF) | payer BC ==
[2019-04-02 19:50] LABS: BASO # 0.1 10^3/uL (0.0-0.2); BASO % 0.9 % (0.0-1.0); EOS # 0.5 10^3/uL (0.0-0.5); EOS % 5.8 % (0.0-3.0); HEMATOCRIT 41.6 % (42.0-52.0); HEMOGLOBIN 13.6 g/dl (13.5-17.5); LYMPH # 3.2 10^3/uL (1.5-5.0); LYMPH % 36.3 % (24.0-44.0); MEAN CORPUSCULAR HEMOGLOBIN 30.4 pg (27.0-33.0); MEAN CORPUSCULAR HGB CONC 32.7 g/dl (32.0-36.5); MEAN CORPUSCULAR VOLUME 93.1 fl (80.0-96.0); MONO # 0.7 10^3/uL (0.0-0.8); MONO % 7.9 % (0.0-5.0); NEUTROPHILS # 4.3 10^3/uL (1.5-8.5); NEUTROPHILS % 48.6 % (36.0-66.0); PLATELET COUNT, AUTOMATED 332 10^3/uL (150-450); RED BLOOD COUNT 4.47 10^6/uL (4.30-6.10); WHITE BLOOD COUNT 8.9 10^3/uL (4.0-10.0)
[2019-04-02 19:58] LABS: HEMOGLOBIN A1c 5.7 %
[2019-04-02 20:18] LABS: ALBUMIN 3.7 GM/DL (3.2-5.2); ALT/SGPT 86 U/L (12-78); BILIRUBIN,TOTAL 0.7 MG/DL (0.2-1.0); BLOOD UREA NITROGEN 12 MG/DL (7-18); C REACTIVE PROTEIN QUANTITATIV 2.78 MG/DL (0.00-0.30); CALCIUM LEVEL 8.2 MG/DL (8.5-10.1); CARBON DIOXIDE LEVEL 26 MEQ/L (21-32); CHLORIDE LEVEL 104 MEQ/L (98-107); CHOLESTEROL LEVEL 166 MG/DL (<200); CHOLESTEROL RISK RATIO 4.486 (<5); FERRITIN 153 NG/ML (26-388); GLOMERULAR FILTRATION RATE > 60.0 (>60); GLUCOSE, FASTING 127 MG/DL (70-100); HDL CHOLESTEROL 37 MG/DL (>40); IRON (FE) 79 UG/DL (65-175); LDL CHOLESTEROL 95 MG/DL (<100); NON-HDL-C 129 MG/DL; PERCENT SATURATION 32.6 % (19.7-50.0); POTASSIUM SERUM 3.8 MEQ/L (3.5-5.1); SODIUM LEVEL 138 MEQ/L (136-145); TOTAL 25(OH) VITAMIN D 53.5 NG/ML (30.0-100.0); TOTAL IRON BINDING CAPACITY 242 UG/DL (250-450); TOTAL PROTEIN 6.8 GM/DL (6.4-8.2); TRIGLYCERIDES LEVEL 170 MG/DL (<150)
[2019-04-02 20:27] LABS: CREATININE, URINE 67.8 MG/DL; MALB URINE SIEMENS 5.3 MG/L; MAU/CREAT RATIO 7.8 MCG/MG (0.0-30.0)
== END ==
LOC: M SFHCADAM 14:04
PROVIDERS: ATTEND Physician Assistant Medical
DX: D50.9 Iron deficiency anemia, unspecified (principal); E11.9 Type 2 diabetes mellitus without complications; M45.9 Ankylosing spondylitis of unspecified sites in spine; E55.9 Vitamin D deficiency, unspecified

== ENCOUNTER 2019-04-30 12:29 | Outpatient (CLI) | payer BC ==
[~2019-04-30] VITALS: Ht 160 cm; Wt 82.0 kg
[2019-04-30] MEDS ORDERED: diphenhydrAMINE 25 MG CAP PO ONE (13:00)
[2019-04-30] MEDS ORDERED: ACETAMINOPHEN 650MG ER TAB (TYLENOL ARTHRITIS) PO ONE (13:00)
[2019-04-30] MEDS ORDERED: NS 1,000 ML IV SCH (13:00)
[2019-04-30] MEDS ORDERED: inFLIXimab INJECTION 400 MG in NS 210 ML IV ONE (13:00)
== END 2019-04-30 14:20 | disposition home or self-care (01) ==
LOC: M INFU 12:29
PROVIDERS: ATTEND Internal Medicine Rheumatology
DX: M45.9 Ankylosing spondylitis of unspecified sites in spine (principal)
CPT/HCPCS: 96413; J1745

== ENCOUNTER → 2019-05-31 | Outpatient (CLI) | payer BC ==
[~2019-05-31] MED LIST changes: -TRAZ-163 PO; +TRAZ-257 PO
== END ==
LOC: M WUC 16:03
PROVIDERS: ATTEND Internal Medicine
DX: M45.0 Ankylosing spondylitis of multiple sites in spine (principal)

== ENCOUNTER → 2019-05-31 | Outpatient (CLI) | payer BC ==
[2019-05-31 20:13] LABS: BASO # 0.1 10^3/uL (0.0-0.2); BASO % 0.6 % (0.0-1.0); EOS # 0.3 10^3/uL (0.0-0.5); EOS % 2.1 % (0.0-3.0); HEMATOCRIT 43.8 % (42.0-52.0); HEMOGLOBIN 14.4 g/dl (13.5-17.5); LYMPH # 2.6 10^3/uL (1.5-5.0); LYMPH % 20.7 % (24.0-44.0); MEAN CORPUSCULAR HEMOGLOBIN 29.9 pg (27.0-33.0); MEAN CORPUSCULAR HGB CONC 32.9 g/dl (32.0-36.5); MEAN CORPUSCULAR VOLUME 91.1 fl (80.0-96.0); MONO # 0.6 10^3/uL (0.0-0.8); MONO % 4.9 % (0.0-5.0); NEUTROPHILS % 71.4 % (36.0-66.0); PLATELET COUNT, AUTOMATED 298 10^3/uL (150-450); RED BLOOD COUNT 4.81 10^6/uL (4.30-6.10); WHITE BLOOD COUNT 12.6 10^3/uL (4.0-10.0)
[2019-05-31 20:18] LABS: ALBUMIN 4.2 GM/DL (3.2-5.2); ALT/SGPT 76 U/L (12-78); BILIRUBIN,TOTAL 0.4 MG/DL (0.2-1.0); BLOOD UREA NITROGEN 13 MG/DL (7-18); CALCIUM LEVEL 8.7 MG/DL (8.5-10.1); CARBON DIOXIDE LEVEL 25 MEQ/L (21-32); CHLORIDE LEVEL 102 MEQ/L (98-107); CREATININE FOR GFR 0.87 MG/DL (0.70-1.30); GLOMERULAR FILTRATION RATE > 60.0 (>60); GLUCOSE, FASTING 154 MG/DL (70-100); POTASSIUM SERUM 3.7 MEQ/L (3.5-5.1); SODIUM LEVEL 136 MEQ/L (136-145); TOTAL PROTEIN 7.5 GM/DL (6.4-8.2)
== END ==
LOC: M WUC 15:58
PROVIDERS: ATTEND Internal Medicine Rheumatology
DX: M45.9 Ankylosing spondylitis of unspecified sites in spine (principal)

== ENCOUNTER 2019-06-18 12:30 | Outpatient (CLI) | payer BC ==
[~2019-06-18] VITALS: Ht 160 cm; Wt 82.0 kg
[2019-06-18] MEDS ORDERED: inFLIXimab INJECTION 400 MG in NS 210 ML IV ONE (12:45)
[2019-06-18] MEDS ORDERED: NS 1,000 ML IV SCH (12:45)
[2019-06-18] MEDS ORDERED: ACETAMINOPHEN 650MG PO PRIOR TO INFUSION PO ONE (12:45)
[2019-06-18] MEDS ORDERED: diphenhydrAMINE 25MG PO PRIOR TO INFUSION PO ONE (12:45)
[2019-06-18 12:57] VITALS: BP 117/69
[2019-06-18 14:15] VITALS: BP 107/59
[2019-06-18 14:30] VITALS: BP 111/62
== END 2019-06-18 14:30 | disposition home or self-care (01) ==
LOC: M INFU 12:30
PROVIDERS: ATTEND Internal Medicine Rheumatology
DX: M45.9 Ankylosing spondylitis of unspecified sites in spine (principal)
CPT/HCPCS: 96413; J1745

== ENCOUNTER 2019-08-06 12:33 | Outpatient (CLI) | payer BC ==
[~2019-08-06] VITALS: Ht 160 cm; Wt 82.0 kg
[~2019-08-06 12:33] MED LIST changes: -FLUO20CA19 PO; +FLUO20CA22 PO; +QUET100T2 PO; -QUET1TAB8 PO
[2019-08-06 12:35] VITALS: BP 122/68
[2019-08-06] MEDS ORDERED: ACETAMINOPHEN TAB 650MG DOSE (2X325MG) PO ONE (12:45)
[2019-08-06] MEDS ORDERED: NS 1,000 ML IV SCH (13:00)
[2019-08-06] MEDS ORDERED: inFLIXimab INJECTION 400 MG in NS 210 ML IV ONE (13:00)
[2019-08-06] MEDS ORDERED: diphenhydrAMINE 25 MG CAP PO ONE (13:00)
[2019-08-06 14:15] VITALS: BP 114/69
== END 2019-08-06 14:15 | disposition home or self-care (01) ==
LOC: M INFU 12:33
PROVIDERS: ATTEND Internal Medicine Rheumatology
DX: M45.9 Ankylosing spondylitis of unspecified sites in spine (principal)
CPT/HCPCS: 96413; J1745

== ENCOUNTER → 2019-08-26 | Outpatient (REF) | payer BC ==
[2019-08-26 16:38] LABS: BASO # 0.1 10^3/uL (0.0-0.2); BASO % 0.9 % (0.0-1.0); EOS # 0.2 10^3/uL (0.0-0.5); EOS % 2.8 % (0.0-3.0); HEMATOCRIT 43.6 % (42.0-52.0); HEMOGLOBIN 15.2 g/dl (13.5-17.5); LYMPH # 2.4 10^3/uL (1.5-5.0); LYMPH % 37.2 % (24.0-44.0); MEAN CORPUSCULAR HEMOGLOBIN 31.5 pg (27.0-33.0); MEAN CORPUSCULAR HGB CONC 34.9 g/dl (32.0-36.5); MEAN CORPUSCULAR VOLUME 90.5 fl (80.0-96.0); MONO # 0.4 10^3/uL (0.0-0.8); MONO % 6.1 % (0.0-5.0); NEUTROPHILS # 3.4 10^3/uL (1.5-8.5); NEUTROPHILS % 52.8 % (36.0-66.0); PLATELET COUNT, AUTOMATED 291 10^3/uL (150-450); RED BLOOD COUNT 4.82 10^6/uL (4.30-6.10); WHITE BLOOD COUNT 6.4 10^3/uL (4.0-10.0)
[2019-08-26 16:49] LABS: ALBUMIN 4.1 GM/DL (3.2-5.2); ALT/SGPT 65 U/L (12-78); BILIRUBIN,TOTAL 0.5 MG/DL (0.2-1.0); BLOOD UREA NITROGEN 8 MG/DL (7-18); C REACTIVE PROTEIN QUANTITATIV < 0.30 MG/DL (0.00-0.30); CALCIUM LEVEL 8.9 MG/DL (8.5-10.1); CARBON DIOXIDE LEVEL 27 MEQ/L (21-32); CHLORIDE LEVEL 104 MEQ/L (98-107); CREATININE FOR GFR 0.87 MG/DL (0.70-1.30); GLOMERULAR FILTRATION RATE > 60.0 (>60); GLUCOSE, FASTING 179 MG/DL (70-100); POTASSIUM SERUM 3.8 MEQ/L (3.5-5.1); SODIUM LEVEL 136 MEQ/L (136-145); TOTAL PROTEIN 7.3 GM/DL (6.4-8.2)
[2019-08-26 17:30] LABS: ERYTHROCYTE SEDIMENTATION RATE 1 mm/hr (0-15)
== END ==
LOC: M SFHCRHEU 14:10
PROVIDERS: ATTEND Internal Medicine
DX: M45.0 Ankylosing spondylitis of multiple sites in spine (principal)

== ENCOUNTER 2019-09-24 12:38 | Outpatient (CLI) | payer BC ==
[~2019-09-24] VITALS: Ht 165.1 cm; Wt 81.5 kg
[~2019-09-24 12:38] MED LIST changes: +CYCL-707 PO; -CYCL10TA PO
[2019-09-24] MEDS ORDERED: diphenhydrAMINE 25MG PO PRIOR TO INFUSION PO ONE (12:45)
[2019-09-24] MEDS ORDERED: inFLIXimab INJECTION 400 MG in NS 210 ML IV ONE (12:45)
[2019-09-24] MEDS ORDERED: diphenhydrAMINE 50MG/ML VIAL (J1200) IV PRN (13:00)
[2019-09-24] MEDS ORDERED: methylPREDNISolone INJ 125 MG/2 ML VIAL (J2930) IV PRN (13:00)
[2019-09-24] MEDS ORDERED: ALBUTEROL SULFATE 2.5 MG/0.5 ML INH NEB SOLN INH PRN (13:00)
[2019-09-24] MEDS ORDERED: EPINEPHrine INJ 1 MG/ML 1ML AMP IM PRN (13:00)
[2019-09-24 13:03] VITALS: BP 120/61
[2019-09-24 13:30] VITALS: BP 108/65
[2019-09-24 14:27] VITALS: BP 113/74
== END 2019-09-24 14:25 | disposition home or self-care (01) ==
LOC: M INFU 12:38
PROVIDERS: ATTEND Internal Medicine
DX: M45.0 Ankylosing spondylitis of multiple sites in spine (principal); Z79.84 Long term (current) use of oral hypoglycemic drugs; Z79.899 Other long term (current) drug therapy
CPT/HCPCS: 96413; J1745

== ENCOUNTER → 2019-10-04 | Outpatient (REF) | payer BC ==
[2019-10-04 13:10] LABS: BASO # 0.1 10^3/uL (0.0-0.2); BASO % 0.9 % (0.0-1.0); EOS # 0.4 10^3/uL (0.0-0.5); EOS % 4.2 % (0.0-3.0); HEMATOCRIT 42.7 % (42.0-52.0); HEMOGLOBIN 14.8 g/dl (13.5-17.5); LYMPH # 4.4 10^3/uL (1.5-5.0); LYMPH % 43.2 % (24.0-44.0); MEAN CORPUSCULAR HEMOGLOBIN 31.1 pg (27.0-33.0); MEAN CORPUSCULAR HGB CONC 34.7 g/dl (32.0-36.5); MEAN CORPUSCULAR VOLUME 89.7 fl (80.0-96.0); MONO # 0.9 10^3/uL (0.0-0.8); MONO % 9.2 % (0.0-5.0); NEUTROPHILS # 4.3 10^3/uL (1.5-8.5); NEUTROPHILS % 42.1 % (36.0-66.0); PLATELET COUNT, AUTOMATED 367 10^3/uL (150-450); RED BLOOD COUNT 4.76 10^6/uL (4.30-6.10); WHITE BLOOD COUNT 10.1 10^3/uL (4.0-10.0)
[2019-10-04 13:29] LABS: ALBUMIN 3.9 GM/DL (3.2-5.2); ALT/SGPT 54 U/L (12-78); BILIRUBIN,TOTAL 0.7 MG/DL (0.2-1.0); BLOOD UREA NITROGEN 9 MG/DL (7-18); CALCIUM LEVEL 8.7 MG/DL (8.5-10.1); CARBON DIOXIDE LEVEL 29 MEQ/L (21-32); CHLORIDE LEVEL 103 MEQ/L (98-107); CREATININE FOR GFR 0.79 MG/DL (0.70-1.30); GLOMERULAR FILTRATION RATE > 60.0 (>60); GLUCOSE, FASTING 93 MG/DL (70-100); POTASSIUM SERUM 3.9 MEQ/L (3.5-5.1); SODIUM LEVEL 140 MEQ/L (136-145); TOTAL 25(OH) VITAMIN D 63.3 NG/ML (30.0-100.0); TOTAL PROTEIN 7.3 GM/DL (6.4-8.2)
[2019-10-04 14:43] LABS: HEMOGLOBIN A1c 5.7 %
== END ==
LOC: M SFHCADAM 09:06
PROVIDERS: ATTEND Physician Assistant Medical
DX: E55.9 Vitamin D deficiency, unspecified (principal); E11.9 Type 2 diabetes mellitus without complications; K21.9 Gastro-esophageal reflux disease without esophagitis

== ENCOUNTER 2019-11-12 15:15 | Outpatient (CLI) | payer BC ==
[~2019-11-12] VITALS: Ht 157.5 cm; Wt 81.5 kg
[2019-11-12] MEDS ORDERED: ALBUTEROL SULFATE 2.5 MG/0.5 ML INH NEB SOLN INH PRN (15:30)
[2019-11-12] MEDS ORDERED: diphenhydrAMINE 50MG/ML VIAL (J1200) IV PRN (15:30)
[2019-11-12] MEDS ORDERED: methylPREDNISolone INJ 125 MG/2 ML VIAL (J2930) IV PRN (15:30)
[2019-11-12] MEDS ORDERED: inFLIXimab INJECTION 400 MG in NS 210 ML IV ONE (15:30)
[2019-11-12] MEDS ORDERED: diphenhydrAMINE 25MG PO PRIOR TO INFUSION PO ONE (15:30)
[2019-11-12] MEDS ORDERED: EPINEPHrine INJ 1 MG/ML 1ML AMP IM PRN (15:30)
[2019-11-12 15:50] VITALS: BP 126/74
[2019-11-12 16:05] VITALS: BP 127/72
[2019-11-12 16:49] VITALS: BP 124/78
== END 2019-11-12 16:50 | disposition home or self-care (01) ==
LOC: M INFU 15:15
PROVIDERS: ATTEND Internal Medicine
DX: M45.0 Ankylosing spondylitis of multiple sites in spine (principal); Z79.84 Long term (current) use of oral hypoglycemic drugs; Z79.891 Long term (current) use of opiate analgesic; Z79.899 Other long term (current) drug therapy
CPT/HCPCS: 96413; J1745

== ENCOUNTER 2019-12-31 12:00 | Outpatient (CLI) | payer BC ==
[~2019-12-31 12:00] MED LIST changes: +inFLIXimab 100MG/10ML VIAL (REMICADE) J1745 PER 10MG ONE
[2019-12-31] MEDS ORDERED: diphenhydrAMINE 25MG CAP As Ordered ONE (12:09)
== END 2019-12-31 13:30 | disposition home or self-care (01) ==
LOC: M INFU 12:00
PROVIDERS: ATTEND Internal Medicine
DX: M45.0 Ankylosing spondylitis of multiple sites in spine (principal)
CPT/HCPCS: 96413; J1745

== ENCOUNTER 2020-02-19 11:04 | Outpatient (CLI) | payer BC ==
[~2020-02-19] VITALS: Ht 157.5 cm; Wt 75.3 kg
[2020-02-19 10:05] VITALS: BP 107/74
[~2020-02-19 11:04] MED LIST changes: -inFLIXimab 100MG/10ML VIAL (REMICADE) J1745 PER 10MG ONE
[2020-02-19] MEDS ORDERED: NS 1,000 ML IV SCH (11:15)
[2020-02-19] MEDS ORDERED: diphenhydrAMINE 50MG/ML VIAL (J1200) IV PRN (11:15)
[2020-02-19] MEDS ORDERED: methylPREDNISolone 125MG 2ML VIAL IV PRN (11:15)
[2020-02-19] MEDS ORDERED: diphenhydrAMINE 25MG CAP PO ONE (11:15)
[2020-02-19] MEDS ORDERED: ALBUTEROL SULFATE 2.5 MG/0.5 ML INH NEB SOLN INH PRN (11:15)
[2020-02-19] MEDS ORDERED: EPINEPHrine INJ 1 MG/ML 1ML AMP IM PRN (11:15)
[2020-02-19] MEDS ORDERED: inFLIXimab INJECTION 400 MG in NS 210 ML IV ONE (11:30)
[2020-02-19 11:42] VITALS: BP 107/74
[2020-02-19 12:00] VITALS: BP 110/59
[2020-02-19 12:47] VITALS: BP 127/74
== END 2020-02-19 13:10 | disposition home or self-care (01) ==
LOC: M INFU 11:04
PROVIDERS: ATTEND Internal Medicine
DX: M45.0 Ankylosing spondylitis of multiple sites in spine (principal)
CPT/HCPCS: 96413; J1745

== ENCOUNTER → 2020-03-17 | Outpatient (CLI) | payer BC ==
[2020-03-17 19:09] LABS: BASO # 0.1 10^3/uL (0.0-0.2); BASO % 0.9 % (0.0-1.0); EOS # 0.2 10^3/uL (0.0-0.5); EOS % 2.4 % (0.0-3.0); HEMATOCRIT 44.1 % (42.0-52.0); HEMOGLOBIN 14.8 g/dl (13.5-17.5); LYMPH # 2.7 10^3/uL (1.5-5.0); LYMPH % 36.7 % (24.0-44.0); MEAN CORPUSCULAR HEMOGLOBIN 30.8 pg (27.0-33.0); MEAN CORPUSCULAR HGB CONC 33.6 g/dl (32.0-36.5); MEAN CORPUSCULAR VOLUME 91.7 fl (80.0-96.0); MONO # 0.6 10^3/uL (0.0-0.8); MONO % 8.1 % (0.0-5.0); NEUTROPHILS # 3.8 10^3/uL (1.5-8.5); NEUTROPHILS % 51.5 % (36.0-66.0); PLATELET COUNT, AUTOMATED 327 10^3/uL (150-450); RED BLOOD COUNT 4.81 10^6/uL (4.30-6.10); WHITE BLOOD COUNT 7.4 10^3/uL (4.0-10.0)
[2020-03-17 19:29] LABS: ERYTHROCYTE SEDIMENTATION RATE 2 mm/hr (0-15)
[2020-03-17 19:33] LABS: ALBUMIN 4.4 GM/DL (3.2-5.2); ALT/SGPT 40 U/L (12-78); BILIRUBIN,TOTAL 0.4 MG/DL (0.2-1.0); BLOOD UREA NITROGEN 8 MG/DL (7-18); CALCIUM LEVEL 9.3 MG/DL (8.5-10.1); CARBON DIOXIDE LEVEL 31 MEQ/L (21-32); CHLORIDE LEVEL 103 MEQ/L (98-107); CREATININE FOR GFR 0.73 MG/DL (0.70-1.30); GLOMERULAR FILTRATION RATE > 60.0 (>60); GLUCOSE, FASTING 100 MG/DL (70-100); POTASSIUM SERUM 4.1 MEQ/L (3.5-5.1); SODIUM LEVEL 139 MEQ/L (136-145); TOTAL PROTEIN 7.7 GM/DL (6.4-8.2)
== END ==
LOC: M WUC 15:53
PROVIDERS: ATTEND Internal Medicine
DX: M45.9 Ankylosing spondylitis of unspecified sites in spine (principal)

== ENCOUNTER 2020-04-08 12:04 | Outpatient (CLI) | payer BC ==
[~2020-04-08] VITALS: Ht 152.4 cm; Wt 75.3 kg
[~2020-04-08 12:04] MED LIST changes: +ALBUTEROL SULFATE 2.5 MG/0.5 ML INH NEB SOLN INH PRN; +EPINEPHrine INJ 1 MG/ML 1ML AMP IM PRN; +NS 1,000 ML IV SCH; +diphenhydrAMINE 25MG CAP PO ONE; +diphenhydrAMINE 50MG/ML VIAL (J1200) IV PRN; +inFLIXimab INJECTION 400 MG in NS 210 ML IV ONE; +methylPREDNISolone 125MG 2ML VIAL IV PRN
[2020-04-08 12:10] VITALS: BP 109/66
[2020-04-08 13:10] VITALS: BP 134/76
[2020-04-08 13:45] VITALS: BP 118/72
[2020-04-08 14:00] VITALS: BP 120/72
== END 2020-04-08 14:00 | disposition home or self-care (01) ==
LOC: M INFU 12:04
PROVIDERS: ATTEND Internal Medicine
DX: M45.0 Ankylosing spondylitis of multiple sites in spine (principal)
CPT/HCPCS: 96413; J1745

== ENCOUNTER → 2020-05-19 | Outpatient (CLI) | payer BC ==
[~2020-05-19] MED LIST changes: -ALBUTEROL SULFATE 2.5 MG/0.5 ML INH NEB SOLN INH PRN; -EPINEPHrine INJ 1 MG/ML 1ML AMP IM PRN; -NS 1,000 ML IV SCH; -diphenhydrAMINE 25MG CAP PO ONE; -diphenhydrAMINE 50MG/ML VIAL (J1200) IV PRN; -inFLIXimab INJECTION 400 MG in NS 210 ML IV ONE; -methylPREDNISolone 125MG 2ML VIAL IV PRN
[2020-05-19 20:18] LABS: BASO # 0.1 10^3/uL (0.0-0.2); BASO % 0.9 % (0.0-1.0); EOS # 0.2 10^3/uL (0.0-0.5); EOS % 2.4 % (0.0-3.0); HEMOGLOBIN 14.9 g/dl (13.5-17.5); LYMPH # 2.5 10^3/uL (1.5-5.0); LYMPH % 36.9 % (24.0-44.0); MEAN CORPUSCULAR HEMOGLOBIN 31.5 pg (27.0-33.0); MEAN CORPUSCULAR HGB CONC 33.9 g/dl (32.0-36.5); MONO # 0.4 10^3/uL (0.0-0.8); MONO % 6.6 % (0.0-5.0); NEUTROPHILS # 3.5 10^3/uL (1.5-8.5); NEUTROPHILS % 52.9 % (36.0-66.0); PLATELET COUNT, AUTOMATED 320 10^3/uL (150-450); RED BLOOD COUNT 4.73 10^6/uL (4.30-6.10); WHITE BLOOD COUNT 6.7 10^3/uL (4.0-10.0)
[2020-05-19 20:54] LABS: ALBUMIN 4.2 GM/DL (3.2-5.2); ALT/SGPT 35 U/L (12-78); BILIRUBIN,TOTAL 0.4 MG/DL (0.2-1.0); BLOOD UREA NITROGEN 11 MG/DL (7-18); CALCIUM LEVEL 9.1 MG/DL (8.5-10.1); CARBON DIOXIDE LEVEL 32 MEQ/L (21-32); CHLORIDE LEVEL 102 MEQ/L (98-107); CHOLESTEROL LEVEL 194 MG/DL (<200); CHOLESTEROL RISK RATIO 4.409 (<5); CREATININE FOR GFR 0.76 MG/DL (0.70-1.30); FERRITIN 73 NG/ML (26-388); GLOMERULAR FILTRATION RATE > 60.0 (>60); GLUCOSE, FASTING 88 MG/DL (70-100); HDL CHOLESTEROL 44 MG/DL (>40); IRON (FE) 74 UG/DL (65-175); LDL CHOLESTEROL 136 MG/DL (<100); NON-HDL-C 150 MG/DL; PERCENT SATURATION 24.3 % (19.7-50.0); POTASSIUM SERUM 4.3 MEQ/L (3.5-5.1); SODIUM LEVEL 140 MEQ/L (136-145); THYROID STIMULATING HORMONE 0.812 uIU/ML (0.358-3.740); TOTAL IRON BINDING CAPACITY 304 UG/DL (250-450); TOTAL PROTEIN 7.7 GM/DL (6.4-8.2); TRIGLYCERIDES LEVEL 71 MG/DL (<150)
[2020-05-19 20:58] LABS: CREATININE, URINE 63.3 MG/DL; MALB URINE SIEMENS < 5.0 MG/L; MAU/CREAT RATIO 7.8 MCG/MG (0.0-30.0)
[2020-05-19 20:59] LABS: TOTAL 25(OH) VITAMIN D 40.3 NG/ML (30.0-100.0)
== END ==
LOC: M WUC 15:46
PROVIDERS: ATTEND Physician Assistant Medical
DX: K21.9 Gastro-esophageal reflux disease without esophagitis (principal); E55.9 Vitamin D deficiency, unspecified; D50.9 Iron deficiency anemia, unspecified; F43.10 Post-traumatic stress disorder, unspecified; E11.9 Type 2 diabetes mellitus without complications

== ENCOUNTER 2020-05-27 12:01 | Outpatient (CLI) | payer BC ==
[~2020-05-27] VITALS: Ht 157.5 cm; Wt 75.3 kg
[~2020-05-27 12:01] MED LIST changes: +ALBUTEROL SULFATE 2.5 MG/0.5 ML INH NEB SOLN INH PRN; +EPINEPHrine INJ 1 MG/ML 1ML AMP IM PRN; +diphenhydrAMINE 25MG CAP PO ONE; +diphenhydrAMINE 50MG/ML VIAL (J1200) IV PRN; +inFLIXimab INJECTION 400 MG in NS 210 ML IV ONE; +methylPREDNISolone 125MG 2ML VIAL IV PRN
[2020-05-27 12:05] VITALS: BP 118/62
[2020-05-27 12:55] VITALS: BP 118/62
[2020-05-27 13:30] VITALS: BP 119/68
[2020-05-27 14:45] VITALS: BP 113/68
== END 2020-05-27 16:23 | disposition home or self-care (01) ==
LOC: M INFU 12:01
PROVIDERS: ATTEND Internal Medicine
DX: M45.0 Ankylosing spondylitis of multiple sites in spine (principal)
CPT/HCPCS: 96413; 96415; J1745

== ENCOUNTER 2020-07-29 12:02 | Outpatient (CLI) | payer BC ==
[~2020-07-29] VITALS: Ht 157.5 cm; Wt 75.3 kg
[~2020-07-29 12:02] MED LIST changes: -AIRB1TAB PO; +MV-M1TAB29 PO; -diphenhydrAMINE 25MG CAP PO ONE; +diphenhydrAMINE 25MG PO PRIOR TO INFUSION PO ONE
[2020-07-29 12:05] VITALS: BP 125/60
[2020-07-29 13:15] VITALS: BP 111/62
[2020-07-29 14:10] VITALS: BP 121/78
== END 2020-07-29 14:10 | disposition home or self-care (01) ==
LOC: M INFU 12:02
PROVIDERS: ATTEND Internal Medicine
DX: M45.0 Ankylosing spondylitis of multiple sites in spine (principal)
CPT/HCPCS: 96413; J1745

== ENCOUNTER → 2020-10-09 | Outpatient (CLI) | payer BC ==
[~2020-10-09] MED LIST changes: -ALBUTEROL SULFATE 2.5 MG/0.5 ML INH NEB SOLN INH PRN; -EPINEPHrine INJ 1 MG/ML 1ML AMP IM PRN; -diphenhydrAMINE 25MG PO PRIOR TO INFUSION PO ONE; -diphenhydrAMINE 50MG/ML VIAL (J1200) IV PRN; -inFLIXimab INJECTION 400 MG in NS 210 ML IV ONE; -methylPREDNISolone 125MG 2ML VIAL IV PRN
[2020-10-09 20:14] LABS: BASO # 0.1 10^3/uL (0.0-0.2); BASO % 0.8 % (0.0-1.0); EOS # 0.2 10^3/uL (0.0-0.5); EOS % 2.8 % (0.0-3.0); HEMOGLOBIN 14.8 g/dl (13.5-17.5); LYMPH # 3.3 10^3/uL (1.5-5.0); LYMPH % 38.4 % (24.0-44.0); MEAN CORPUSCULAR HEMOGLOBIN 32.5 pg (27.0-33.0); MEAN CORPUSCULAR HGB CONC 34.4 g/dl (32.0-36.5); MEAN CORPUSCULAR VOLUME 94.5 fl (80.0-96.0); MONO # 0.6 10^3/uL (0.0-0.8); NEUTROPHILS # 4.3 10^3/uL (1.5-8.5); NEUTROPHILS % 50.5 % (36.0-66.0); PLATELET COUNT, AUTOMATED 302 10^3/uL (150-450); RED BLOOD COUNT 4.55 10^6/uL (4.30-6.10); WHITE BLOOD COUNT 8.5 10^3/uL (4.0-10.0)
[2020-10-09 20:47] LABS: ALBUMIN 3.9 GM/DL (3.2-5.2); ALT/SGPT 35 U/L (12-78); BILIRUBIN,TOTAL 0.2 MG/DL (0.2-1.0); BLOOD UREA NITROGEN 11 MG/DL (7-18); CALCIUM LEVEL 8.5 MG/DL (8.5-10.1); CARBON DIOXIDE LEVEL 28 MEQ/L (21-32); CHLORIDE LEVEL 107 MEQ/L (98-107); CHOLESTEROL LEVEL 173 MG/DL (<200); CHOLESTEROL RISK RATIO 3.604 (<5); CREATININE FOR GFR 0.71 MG/DL (0.70-1.30); FERRITIN 96 NG/ML (26-388); GLOMERULAR FILTRATION RATE > 60.0 (>60); GLUCOSE, FASTING 109 MG/DL (70-100); HDL CHOLESTEROL 48 MG/DL (>40); IRON (FE) 47 UG/DL (65-175); LDL CHOLESTEROL 112 MG/DL (<100); NON-HDL-C 125 MG/DL; PERCENT SATURATION 14.9 % (19.7-50.0); POTASSIUM SERUM 4.2 MEQ/L (3.5-5.1); SODIUM LEVEL 140 MEQ/L (136-145); THYROID STIMULATING HORMONE 0.913 uIU/ML (0.358-3.740); TOTAL IRON BINDING CAPACITY 315 UG/DL (250-450); TOTAL PROTEIN 7.4 GM/DL (6.4-8.2); TRIGLYCERIDES LEVEL 63 MG/DL (<150)
[2020-10-09 20:48] LABS: CREATININE, URINE 25.6 MG/DL; HEMOGLOBIN A1c 5.3 %; MALB URINE SIEMENS < 5.0 MG/L; MAU/CREAT RATIO 19.5 MCG/MG (0.0-30.0)
[2020-10-09 21:03] LABS: FOLATE 19.5 NG/ML; VITAMIN B12 LEVEL 993 PG/ML
== END ==
LOC: M WUC 15:40
PROVIDERS: ATTEND Physician Assistant Medical
DX: E55.9 Vitamin D deficiency, unspecified (principal); D50.9 Iron deficiency anemia, unspecified; E11.9 Type 2 diabetes mellitus without complications

== ENCOUNTER 2020-11-15 21:38 | Emergency (ER) | payer BC ==
[~2020-11-15] VITALS: Ht 157.5 cm; Wt 70.9 kg
[2020-11-15 21:38] VITALS: BP 143/82
== END 2020-11-15 23:32 | disposition left against medical advice (07) ==
LOC: M ED 21:38
DX: Z53.21 Procedure and treatment not carried out due to patient leaving prior to being seen by health care provider (principal)

== ENCOUNTER → 2020-11-18 | Outpatient (REF) ==
--- NOTE | 2020-11-18 16:31 | REP ---
INDICATION: BACK PAIN COMPARISON: None. TECHNIQUE: AP, lateral, coned-down views of the lumbar spine. FINDINGS: Alignment is maintained. Bridging osteophytes along with elements of endplate sclerosis, disc space narrowing and facet hypertrophy appreciated. No acute fracture/compression injury or subluxation. IMPRESSION: Bridging osteophytes and moderate multilevel degenerative spondylosis. If the patient remains symptomatic consider MRI for further investigation. <Electronically signed by Chung Perez > 11/18/20 0611
== END ==
LOC: M PLAIMG 15:57
PROVIDERS: ATTEND Internal Medicine
DX: M25.78 Osteophyte, vertebrae (principal); M43.07 Spondylolysis, lumbosacral region

== ENCOUNTER → 2020-11-30 | Outpatient (CLI) | payer BC ==
[2020-11-30 20:32] LABS: BASO % 0.7 % (0.0-1.0); EOS # 0.2 10^3/uL (0.0-0.5); EOS % 2.6 % (0.0-3.0); HEMATOCRIT 44.4 % (42.0-52.0); HEMOGLOBIN 15.3 g/dl (13.5-17.5); LYMPH # 2.4 10^3/uL (1.5-5.0); LYMPH % 38.4 % (24.0-44.0); MEAN CORPUSCULAR HEMOGLOBIN 31.4 pg (27.0-33.0); MEAN CORPUSCULAR HGB CONC 34.5 g/dl (32.0-36.5); MEAN CORPUSCULAR VOLUME 91.2 fl (80.0-96.0); MONO # 0.4 10^3/uL (0.0-0.8); MONO % 6.4 % (2.0-8.0); NEUTROPHILS # 3.2 10^3/uL (1.5-8.5); NEUTROPHILS % 51.7 % (36.0-66.0); PLATELET COUNT, AUTOMATED 299 10^3/uL (150-450); RED BLOOD COUNT 4.87 10^6/uL (4.30-6.10); WHITE BLOOD COUNT 6.1 10^3/uL (4.0-10.0)
[2020-11-30 21:00] LABS: ALBUMIN 4.2 GM/DL (3.2-5.2); ALT/SGPT 35 U/L (12-78); BILIRUBIN,TOTAL 0.5 MG/DL (0.2-1.0); BLOOD UREA NITROGEN 7 MG/DL (7-18); CALCIUM LEVEL 8.7 MG/DL (8.5-10.1); CARBON DIOXIDE LEVEL 28 MEQ/L (21-32); CHLORIDE LEVEL 105 MEQ/L (98-107); CREATININE FOR GFR 0.84 MG/DL (0.70-1.30); GLOMERULAR FILTRATION RATE > 60.0 (>60); GLUCOSE, FASTING 141 MG/DL (70-100); POTASSIUM SERUM 3.8 MEQ/L (3.5-5.1); SODIUM LEVEL 139 MEQ/L (136-145); TOTAL PROTEIN 7.3 GM/DL (6.4-8.2)
[2020-11-30 21:07] LABS: ERYTHROCYTE SEDIMENTATION RATE 2 mm/hr (0-15)
== END ==
LOC: M WUC 15:30
PROVIDERS: ATTEND Internal Medicine
DX: M45.0 Ankylosing spondylitis of multiple sites in spine (principal)

== ENCOUNTER 2020-12-16 14:51 | Outpatient (CLI) | payer BC ==
[~2020-12-16] VITALS: Ht 157.5 cm; Wt 70.9 kg
[~2020-12-16 14:51] MED LIST changes: +NS 1,000 ML IV SCH; +diphenhydrAMINE 25MG PO PRIOR TO INFUSION PO ONE; +inFLIXimab INJECTION 400 MG in NS 210 ML IV ONE
[2020-12-16 14:55] VITALS: BP 137/81
[2020-12-16 16:15] VITALS: BP_SYST 84
[2020-12-16 17:10] VITALS: BP 129/80
== END 2020-12-16 17:20 | disposition home or self-care (01) ==
LOC: M INFU 14:51
PROVIDERS: ATTEND Internal Medicine Rheumatology
DX: M45.0 Ankylosing spondylitis of multiple sites in spine (principal)
CPT/HCPCS: 96413; J1745

== ENCOUNTER 2021-01-27 13:58 | Outpatient (CLI) | payer BC ==
[~2021-01-27] VITALS: Ht 157.5 cm; Wt 70.9 kg
[~2021-01-27 13:58] MED LIST changes: +ALBUTEROL SULFATE 2.5 MG/0.5 ML INH NEB SOLN INH PRN; +EPINEPHrine INJ 1 MG/ML 1ML AMP IM PRN; -NS 1,000 ML IV SCH; -diphenhydrAMINE 25MG PO PRIOR TO INFUSION PO ONE; +diphenhydrAMINE 50MG/ML VIAL (J1200) IV PRN; -inFLIXimab INJECTION 400 MG in NS 210 ML IV ONE; +methylPREDNISolone 125MG 2ML VIAL IV PRN
[2021-01-27] MEDS ORDERED: diphenhydrAMINE 25MG CAP PO ONE (14:00)
[2021-01-27] MEDS ORDERED: inFLIXimab INJECTION 400 MG in NS 210 ML IV ONE (14:00)
[2021-01-27 15:00] VITALS: BP 131/80
[2021-01-27 15:15] VITALS: BP 119/74
[2021-01-27 16:00] VITALS: BP 127/76
== END 2021-01-27 16:07 | disposition home or self-care (01) ==
LOC: M INFU 13:58
PROVIDERS: ATTEND Internal Medicine Rheumatology
DX: M45.0 Ankylosing spondylitis of multiple sites in spine (principal)
CPT/HCPCS: 96413; J1745

== ENCOUNTER 2021-03-10 14:14 | Outpatient (CLI) | payer BC ==
[~2021-03-10] VITALS: Ht 157.5 cm; Wt 70.9 kg
[~2021-03-10 14:14] MED LIST changes: -ALBUTEROL SULFATE 2.5 MG/0.5 ML INH NEB SOLN INH PRN; -EPINEPHrine INJ 1 MG/ML 1ML AMP IM PRN; +diphenhydrAMINE 25MG PO PRIOR TO INFUSION PO ONE; -diphenhydrAMINE 50MG/ML VIAL (J1200) IV PRN; +inFLIXimab INJECTION 400 MG in NS 210 ML IV ONE; -methylPREDNISolone 125MG 2ML VIAL IV PRN
[2021-03-10 14:15] VITALS: BP 123/61
[2021-03-10 15:00] VITALS: BP 111/74
[2021-03-10 15:55] VITALS: BP 120/79
[2021-03-10 16:28] LABS: BASO % 0.4 % (0.0-1.0); EOS # 0.2 10^3/uL (0.0-0.5); EOS % 2.8 % (0.0-3.0); HEMATOCRIT 42.1 % (42.0-52.0); HEMOGLOBIN 14.5 g/dl (13.5-17.5); LYMPH # 2.2 10^3/uL (1.5-5.0); LYMPH % 29.1 % (24.0-44.0); MEAN CORPUSCULAR HEMOGLOBIN 31.4 pg (27.0-33.0); MEAN CORPUSCULAR HGB CONC 34.4 g/dl (32.0-36.5); MEAN CORPUSCULAR VOLUME 91.1 fl (80.0-96.0); MONO # 0.6 10^3/uL (0.0-0.8); MONO % 8.6 % (2.0-8.0); NEUTROPHILS # 4.4 10^3/uL (1.5-8.5); NEUTROPHILS % 58.8 % (36.0-66.0); PLATELET COUNT, AUTOMATED 306 10^3/uL (150-450); RED BLOOD COUNT 4.62 10^6/uL (4.30-6.10); WHITE BLOOD COUNT 7.5 10^3/uL (4.0-10.0)
[2021-03-10 16:48] LABS: ALBUMIN 3.9 GM/DL (3.2-5.2); ALT/SGPT 64 U/L (12-78); BILIRUBIN,TOTAL 0.5 MG/DL (0.2-1.0); BLOOD UREA NITROGEN 10 MG/DL (7-18); CALCIUM LEVEL 8.9 MG/DL (8.5-10.1); CARBON DIOXIDE LEVEL 31 MEQ/L (21-32); CHLORIDE LEVEL 110 MEQ/L (98-107); GLOMERULAR FILTRATION RATE > 60.0 (>60); GLUCOSE, FASTING 119 MG/DL (70-100); POTASSIUM SERUM 4.5 MEQ/L (3.5-5.1); SODIUM LEVEL 142 MEQ/L (136-145); TOTAL PROTEIN 7.1 GM/DL (6.4-8.2)
[2021-03-10 17:41] LABS: ERYTHROCYTE SEDIMENTATION RATE 4 mm/hr (0-15)
== END 2021-03-10 16:10 | disposition home or self-care (01) ==
LOC: M INFU 14:14
PROVIDERS: ATTEND Internal Medicine Rheumatology
DX: M45.0 Ankylosing spondylitis of multiple sites in spine (principal)
CPT/HCPCS: 36592; 80053; 85025; 85652; 86140; 86480; 96413; J1745

== ENCOUNTER → 2021-04-01 | Outpatient (REF) | payer BC ==
[~2021-04-01] MED LIST changes: -diphenhydrAMINE 25MG PO PRIOR TO INFUSION PO ONE; -inFLIXimab INJECTION 400 MG in NS 210 ML IV ONE
[2021-04-01 14:19] LABS: BASO # 0.1 10^3/uL (0.0-0.2); BASO % 1.2 % (0.0-1.0); EOS # 0.6 10^3/uL (0.0-0.5); EOS % 6.7 % (0.0-3.0); HEMATOCRIT 38.8 % (42.0-52.0); HEMOGLOBIN 13.4 g/dl (13.5-17.5); LYMPH # 3.5 10^3/uL (1.5-5.0); LYMPH % 42.5 % (24.0-44.0); MEAN CORPUSCULAR HEMOGLOBIN 32.1 pg (27.0-33.0); MEAN CORPUSCULAR HGB CONC 34.5 g/dl (32.0-36.5); MONO # 0.6 10^3/uL (0.0-0.8); MONO % 7.1 % (2.0-8.0); NEUTROPHILS # 3.5 10^3/uL (1.5-8.5); NEUTROPHILS % 42.1 % (36.0-66.0); PLATELET COUNT, AUTOMATED 257 10^3/uL (150-450); RED BLOOD COUNT 4.17 10^6/uL (4.30-6.10); WHITE BLOOD COUNT 8.3 10^3/uL (4.0-10.0)
[2021-04-01 14:27] LABS: APPEARANCE, URINE CLEAR (CLEAR); BACTERIA, URINE AUTO NEGATIVE (NEGATIVE); BILIRUBIN, URINE AUTO NEGATIVE (NEGATIVE); BLOOD, URINE BLOOD NEGATIVE (NEGATIVE); COLOR, URINE YELLOW (YELLOW); GLUCOSE, URINE (UA) AUTO NEGATIVE (NEGATIVE); KETONE, URINE AUTO NEGATIVE (NEGATIVE); LEUKOCYTE ESTERASE, URINE AUTO NEGATIVE (NEGATIVE); NITRITE, URINE AUTO NEGATIVE (NEGATIVE); PROTEIN, URINE AUTO NEGATIVE (NEGATIVE); RBC, URINE AUTO 0 /HPF (0-3); SPECIFIC GRAVITY URINE AUTO 1.019 (1.002-1.035); SQUAMOUS EPITHELIAL CELL UR AU 0 /HPF (0-6); WBC, URINE AUTO 0 /HPF (0-3)
[2021-04-01 16:00] LABS: HEMOGLOBIN A1c 5.3 %
[2021-04-01 16:28] LABS: ALBUMIN 3.9 GM/DL (3.2-5.2); ALT/SGPT 46 U/L (12-78); BILIRUBIN,TOTAL 0.2 MG/DL (0.2-1.0); BLOOD UREA NITROGEN 9 MG/DL (7-18); CALCIUM LEVEL 8.5 MG/DL (8.5-10.1); CARBON DIOXIDE LEVEL 28 MEQ/L (21-32); CHLORIDE LEVEL 107 MEQ/L (98-107); CHOLESTEROL LEVEL 122 MG/DL (<200); CHOLESTEROL RISK RATIO 3.485 (<5); CREATININE FOR GFR 0.73 MG/DL (0.70-1.30); FERRITIN 113 NG/ML (26-388); GLOMERULAR FILTRATION RATE > 60.0 (>60); GLUCOSE, FASTING 107 MG/DL (70-100); HDL CHOLESTEROL 35 MG/DL (>40); IRON (FE) 47 UG/DL (65-175); LDL CHOLESTEROL 61 MG/DL (<100); NON-HDL-C 87 MG/DL; PERCENT SATURATION 17.5 % (19.7-50.0); POTASSIUM SERUM 3.7 MEQ/L (3.5-5.1); SODIUM LEVEL 141 MEQ/L (136-145); TOTAL IRON BINDING CAPACITY 268 UG/DL (250-450); TOTAL PROTEIN 6.7 GM/DL (6.4-8.2); TRIGLYCERIDES LEVEL 131 MG/DL (<150)
[2021-04-01 16:36] LABS: MALB URINE SIEMENS 8.4 MG/L; MAU/CREAT RATIO 6.7 MCG/MG (0.0-30.0)
[2021-04-01 17:04] LABS: TOTAL 25(OH) VITAMIN D 40.5 NG/ML (30.0-100.0)
== END ==
LOC: M SFHCADAM 07:59
PROVIDERS: ATTEND Physician Assistant Medical
DX: E11.9 Type 2 diabetes mellitus without complications (principal); K21.9 Gastro-esophageal reflux disease without esophagitis; D50.9 Iron deficiency anemia, unspecified; F43.10 Post-traumatic stress disorder, unspecified; E55.9 Vitamin D deficiency, unspecified

== ENCOUNTER 2021-04-21 14:00 | Outpatient (CLI) | payer BC ==
[~2021-04-21] VITALS: Ht 157.5 cm; Wt 70.9 kg
[~2021-04-21 14:00] MED LIST changes: +ALBUTEROL SULFATE 2.5 MG/0.5 ML INH NEB SOLN INH PRN; +DICL20GE TOP; +EPINEPHrine INJ 1 MG/ML 1ML AMP IM PRN; +FERR325T81 PO; +NS 1,000 ML IV SCH; +RANI15TA PO; +SIMV40TA20 PO; +TRUL0.5I SC; +VITA-243 PO; +VITMTA PO; +diphenhydrAMINE 25MG CAP PO ONE; +diphenhydrAMINE 50MG/ML VIAL (J1200) IV PRN; +inFLIXimab INJECTION 400 MG in NS 210 ML IV ONE; +methylPREDNISolone 125MG 2ML VIAL IV PRN
[2021-04-21 14:05] VITALS: BP 128/83
[2021-04-21 15:06] VITALS: BP 128/83
[2021-04-21 15:20] VITALS: BP 126/64
[2021-04-21 16:14] VITALS: BP 130/70
== END 2021-04-21 16:15 | disposition home or self-care (01) ==
LOC: M INFU 14:00
PROVIDERS: ATTEND Internal Medicine Rheumatology
DX: M45.0 Ankylosing spondylitis of multiple sites in spine (principal)
CPT/HCPCS: 96413; J1745

== ENCOUNTER → 2021-04-28 | Outpatient (CLI) | payer BC ==
[~2021-04-28] MED LIST changes: -ALBUTEROL SULFATE 2.5 MG/0.5 ML INH NEB SOLN INH PRN; -EPINEPHrine INJ 1 MG/ML 1ML AMP IM PRN; -NS 1,000 ML IV SCH; -diphenhydrAMINE 25MG CAP PO ONE; -diphenhydrAMINE 50MG/ML VIAL (J1200) IV PRN; -inFLIXimab INJECTION 400 MG in NS 210 ML IV ONE; -methylPREDNISolone 125MG 2ML VIAL IV PRN
== END ==
LOC: M LABSMTC 10:59
PROVIDERS: ATTEND Anesthesiology
DX: Z01.812 Encounter for preprocedural laboratory examination (principal); Z20.822 Contact with and (suspected) exposure to COVID-19

== ENCOUNTER 2021-05-03 12:16 | Day surgery (SDC) | payer BC ==
[~2021-05-03] VITALS: Ht 157.5 cm; Wt 71.4 kg
[~2021-05-03 12:16] MED LIST changes: +NS 1,000 ML IV ONE
[2021-05-03] MEDS ORDERED: propofoL 200 MG/20 ML VIAL As Ordered ONE ×2 (14:00→14:45)
[2021-05-03] MEDS ORDERED: LIDOCAINE 2% 100MG/5ML SDV (FOR ANES.) As Ordered ONE (14:01)
[2021-05-03] MEDS ORDERED: GLYCOPYRROLATE INJ 0.2 MG/ML 2 ML VIAL As Ordered ONE (14:01)
[2021-05-03 15:24] VITALS: BP 111/70
== END 2021-05-03 15:24 | disposition home or self-care (01) ==
LOC: M OPP 12:16
PROVIDERS: ATTEND Internal Medicine Gastroenterology
DX: Z12.11 Encounter for screening for malignant neoplasm of colon (principal); K64.8 Other hemorrhoids; K31.89 Other diseases of stomach and duodenum; K44.9 Diaphragmatic hernia without obstruction or gangrene; K22.89 Other specified disease of esophagus; R10.13 Epigastric pain; Z79.84 Long term (current) use of oral hypoglycemic drugs; Z79.891 Long term (current) use of opiate analgesic; Z79.899 Other long term (current) drug therapy

== ENCOUNTER 2021-06-02 14:02 | Outpatient (CLI) | payer BC ==
[~2021-06-02] VITALS: Ht 157.5 cm; Wt 70.9 kg
[~2021-06-02 14:02] MED LIST changes: +ALBUTEROL SULFATE 2.5 MG/0.5 ML INH NEB SOLN INH PRN; +EPINEPHrine INJ 1 MG/ML 1ML AMP IM PRN; -NS 1,000 ML IV ONE; +diphenhydrAMINE 25MG CAP PO ONE; +diphenhydrAMINE 50MG/ML VIAL (J1200) IV PRN; +inFLIXimab INJECTION 400 MG in NS 210 ML IV ONE; +methylPREDNISolone 125MG 2ML VIAL IV PRN
[2021-06-02 14:15] VITALS: BP 116/77
[2021-06-02 15:00] VITALS: BP 127/74
[2021-06-02 15:48] VITALS: BP 124/80
[2021-06-02] MEDS ORDERED: NS 1,000 ML IV SCH (23:15)
== END 2021-06-02 15:59 | disposition home or self-care (01) ==
LOC: M INFU 14:02
PROVIDERS: ATTEND Internal Medicine Rheumatology
DX: M45.0 Ankylosing spondylitis of multiple sites in spine (principal)
CPT/HCPCS: 96413; J1745

== ENCOUNTER → 2021-08-04 | Outpatient (REF) | payer BC ==
[~2021-08-04] MED LIST changes: -ALBUTEROL SULFATE 2.5 MG/0.5 ML INH NEB SOLN INH PRN; -EPINEPHrine INJ 1 MG/ML 1ML AMP IM PRN; -diphenhydrAMINE 25MG CAP PO ONE; -diphenhydrAMINE 50MG/ML VIAL (J1200) IV PRN; -inFLIXimab INJECTION 400 MG in NS 210 ML IV ONE; -methylPREDNISolone 125MG 2ML VIAL IV PRN
[2021-08-04 16:04] LABS: BASO # 0.1 10^3/uL (0.0-0.2); EOS # 0.4 10^3/uL (0.0-0.5); EOS % 5.3 % (0.0-3.0); HEMOGLOBIN 14.9 g/dl (13.5-17.5); LYMPH # 3.3 10^3/uL (1.5-5.0); LYMPH % 41.5 % (24.0-44.0); MEAN CORPUSCULAR HEMOGLOBIN 31.6 pg (27.0-33.0); MEAN CORPUSCULAR HGB CONC 34.7 g/dl (32.0-36.5); MEAN CORPUSCULAR VOLUME 91.1 fl (80.0-96.0); MONO # 0.7 10^3/uL (0.0-0.8); MONO % 8.1 % (2.0-8.0); NEUTROPHILS # 3.5 10^3/uL (1.5-8.5); NEUTROPHILS % 43.8 % (36.0-66.0); PLATELET COUNT, AUTOMATED 287 10^3/uL (150-450); RED BLOOD COUNT 4.72 10^6/uL (4.30-6.10)
[2021-08-04 16:28] LABS: ALBUMIN 4.1 GM/DL (3.2-5.2); ALT/SGPT 46 U/L (12-78); BILIRUBIN,TOTAL 0.4 MG/DL (0.2-1.0); BLOOD UREA NITROGEN 12 MG/DL (7-18); CALCIUM LEVEL 8.8 MG/DL (8.5-10.1); CARBON DIOXIDE LEVEL 33 MEQ/L (21-32); CHLORIDE LEVEL 104 MEQ/L (98-107); GLOMERULAR FILTRATION RATE > 60.0 (>60); GLUCOSE, FASTING 103 MG/DL (70-100); SODIUM LEVEL 139 MEQ/L (136-145); TOTAL PROTEIN 7.2 GM/DL (6.4-8.2)
[2021-08-04 17:02] LABS: ERYTHROCYTE SEDIMENTATION RATE 1 mm/hr (0-15)
== END ==
LOC: M SFHCADAM 13:25
PROVIDERS: ATTEND Internal Medicine Rheumatology
DX: M45.0 Ankylosing spondylitis of multiple sites in spine (principal); Z79.899 Other long term (current) drug therapy; H57.11 Ocular pain, right eye

== ENCOUNTER 2021-08-25 14:01 | Outpatient (CLI) | payer BC ==
[~2021-08-25] VITALS: Ht 157.5 cm; Wt 73.5 kg
[~2021-08-25 14:01] MED LIST changes: +ALBUTEROL SULFATE 2.5 MG/0.5 ML INH NEB SOLN INH PRN; +EPINEPHrine INJ 1 MG/ML 1ML AMP IM PRN; +diphenhydrAMINE 25MG CAP PO ONE; +diphenhydrAMINE 50MG/ML VIAL (J1200) IV PRN; +inFLIXimab INJECTION 400 MG in NS 210 ML IV ONE; +methylPREDNISolone 125MG 2ML VIAL IV PRN
[2021-08-25 14:07] VITALS: BP 127/84
[2021-08-25 14:45] VITALS: BP 123/78
[2021-08-25 15:45] VITALS: BP 134/86
== END 2021-08-25 15:45 | disposition home or self-care (01) ==
LOC: M INFU 14:01
PROVIDERS: ATTEND Internal Medicine Rheumatology
DX: M45.9 Ankylosing spondylitis of unspecified sites in spine (principal)
CPT/HCPCS: 96413; J1745

== ENCOUNTER 2021-10-06 14:14 | Outpatient (CLI) | payer BC ==
[~2021-10-06] VITALS: Ht 157.5 cm; Wt 73.5 kg
[2021-10-06 14:20] VITALS: BP 124/81
[2021-10-06 15:00] VITALS: BP 127/85
[2021-10-06 15:09] VITALS: BP 127/85
[2021-10-06 15:43] VITALS: BP 122/80
== END 2021-10-06 15:45 | disposition home or self-care (01) ==
LOC: M INFU 14:14
PROVIDERS: ATTEND Internal Medicine Rheumatology
DX: M45.0 Ankylosing spondylitis of multiple sites in spine (principal)
CPT/HCPCS: 96365; J1745

== ENCOUNTER → 2021-10-21 | Outpatient (REF) | payer BC ==
[~2021-10-21] MED LIST changes: -ALBUTEROL SULFATE 2.5 MG/0.5 ML INH NEB SOLN INH PRN; -EPINEPHrine INJ 1 MG/ML 1ML AMP IM PRN; -diphenhydrAMINE 25MG CAP PO ONE; -diphenhydrAMINE 50MG/ML VIAL (J1200) IV PRN; -inFLIXimab INJECTION 400 MG in NS 210 ML IV ONE; -methylPREDNISolone 125MG 2ML VIAL IV PRN
[2021-10-21 16:41] LABS: APPEARANCE, URINE CLEAR (CLEAR); BACTERIA, URINE AUTO NEGATIVE (NEGATIVE); BILIRUBIN, URINE AUTO NEGATIVE (NEGATIVE); BLOOD, URINE BLOOD NEGATIVE (NEGATIVE); COLOR, URINE YELLOW (YELLOW); GLUCOSE, URINE (UA) AUTO NEGATIVE (NEGATIVE); KETONE, URINE AUTO NEGATIVE (NEGATIVE); LEUKOCYTE ESTERASE, URINE AUTO NEGATIVE (NEGATIVE); NITRITE, URINE AUTO NEGATIVE (NEGATIVE); PROTEIN, URINE AUTO NEGATIVE (NEGATIVE); RBC, URINE AUTO 0 /HPF (0-3); SPECIFIC GRAVITY URINE AUTO 1.017 (1.002-1.035); SQUAMOUS EPITHELIAL CELL UR AU 0 /HPF (0-6); WBC, URINE AUTO 0 /HPF (0-3)
== END ==
LOC: M SFHCADAM 16:02
PROVIDERS: ATTEND Physician Assistant Medical
DX: M54.9 Dorsalgia, unspecified (principal)

== ENCOUNTER 2021-11-17 14:00 | Outpatient (CLI) | payer BC ==
[~2021-11-17] VITALS: Ht 157.5 cm; Wt 73.5 kg
[~2021-11-17 14:00] MED LIST changes: +ALBUTEROL SULFATE 2.5 MG/0.5 ML INH NEB SOLN INH PRN; +EPINEPHrine INJ 1 MG/ML 1ML AMP IM PRN; +NS 1,000 ML IV SCH; +diphenhydrAMINE 25MG PO PRIOR TO INFUSION PO ONE; +diphenhydrAMINE 50MG/ML VIAL (J1200) IV PRN; +inFLIXimab INJECTION 400 MG in NS 210 ML IV ONE; +methylPREDNISolone 125MG 2ML VIAL IV PRN
[2021-11-17 14:10] VITALS: BP 139/81
[2021-11-17 14:45] VITALS: BP 140/72
[2021-11-17 15:45] VITALS: BP 122/79
== END 2021-11-17 15:45 | disposition home or self-care (01) ==
LOC: M INFU 14:00
PROVIDERS: ATTEND Internal Medicine Rheumatology
DX: M45.0 Ankylosing spondylitis of multiple sites in spine (principal)
CPT/HCPCS: 96413; J1745

== ENCOUNTER 2021-12-29 14:05 | Outpatient (CLI) | payer BC ==
[~2021-12-29] VITALS: Ht 157.5 cm; Wt 73.5 kg
[2021-12-29 14:05] VITALS: BP 129/71
[~2021-12-29 14:05] MED LIST changes: -NS 1,000 ML IV SCH
[2021-12-29 16:00] VITALS: BP 125/69
== END 2021-12-29 16:00 | disposition home or self-care (01) ==
LOC: M INFU 14:05
PROVIDERS: ATTEND Internal Medicine Rheumatology
DX: M45.0 Ankylosing spondylitis of multiple sites in spine (principal)
CPT/HCPCS: 96413; J1745

== ENCOUNTER → 2022-01-18 | Outpatient (CLI) | payer BC ==
[~2022-01-18] MED LIST changes: -ALBUTEROL SULFATE 2.5 MG/0.5 ML INH NEB SOLN INH PRN; -EPINEPHrine INJ 1 MG/ML 1ML AMP IM PRN; -diphenhydrAMINE 25MG PO PRIOR TO INFUSION PO ONE; -diphenhydrAMINE 50MG/ML VIAL (J1200) IV PRN; -inFLIXimab INJECTION 400 MG in NS 210 ML IV ONE; -methylPREDNISolone 125MG 2ML VIAL IV PRN
== END ==
LOC: M PLAIMG 07:05
PROVIDERS: ATTEND Physician Assistant Medical
DX: M45.0 Ankylosing spondylitis of multiple sites in spine (principal)

== ENCOUNTER → 2022-02-04 | Outpatient (REF) | payer BC ==
[2022-02-04 13:58] LABS: BASO # 0.1 10^3/uL (0.0-0.2); EOS # 0.7 10^3/uL (0.0-0.5); EOS % 7.9 % (0.0-3.0); HEMOGLOBIN 15.2 g/dl (13.5-17.5); LYMPH % 33.2 % (24.0-44.0); MEAN CORPUSCULAR HEMOGLOBIN 31.5 pg (27.0-33.0); MEAN CORPUSCULAR HGB CONC 34.5 g/dl (32.0-36.5); MEAN CORPUSCULAR VOLUME 91.3 fl (80.0-96.0); MONO # 0.7 10^3/uL (0.0-0.8); MONO % 7.6 % (2.0-8.0); NEUTROPHILS # 4.5 10^3/uL (1.5-8.5); NEUTROPHILS % 49.9 % (36.0-66.0); PLATELET COUNT, AUTOMATED 281 10^3/uL (150-450); RED BLOOD COUNT 4.82 10^6/uL (4.30-6.10); WHITE BLOOD COUNT 8.9 10^3/uL (4.0-10.0)
[2022-02-04 14:18] LABS: ERYTHROCYTE SEDIMENTATION RATE 2 mm/hr (0-15)
[2022-02-04 15:02] LABS: ALBUMIN 4.1 GM/DL (3.2-5.2); ALT/SGPT 45 U/L (12-78); BILIRUBIN,TOTAL 0.5 MG/DL (0.2-1.0); BLOOD UREA NITROGEN 11 MG/DL (7-18); CALCIUM LEVEL 9.1 MG/DL (8.5-10.1); CARBON DIOXIDE LEVEL 32 MEQ/L (21-32); CHLORIDE LEVEL 101 MEQ/L (98-107); CREATININE FOR GFR 0.75 MG/DL (0.70-1.30); GLOMERULAR FILTRATION RATE > 60.0 (>60); GLUCOSE, FASTING 100 MG/DL (70-100); POTASSIUM SERUM 4.3 MEQ/L (3.5-5.1); SODIUM LEVEL 137 MEQ/L (136-145); TOTAL PROTEIN 7.4 GM/DL (6.4-8.2)
== END ==
LOC: M SFHCADAM 11:38
PROVIDERS: ATTEND Internal Medicine Rheumatology
DX: M45.0 Ankylosing spondylitis of multiple sites in spine (principal); M54.12 Radiculopathy, cervical region; H57.11 Ocular pain, right eye; Z79.899 Other long term (current) drug therapy

== ENCOUNTER 2022-02-09 14:31 | Outpatient (CLI) | payer BC ==
[~2022-02-09] VITALS: Ht 157.5 cm; Wt 73.0 kg
[~2022-02-09 14:31] MED LIST changes: +ALBUTEROL SULFATE 2.5 MG/0.5 ML INH NEB SOLN INH PRN; +EPINEPHrine INJ 1 MG/ML 1ML AMP IM PRN; +diphenhydrAMINE 25MG PO PRIOR TO INFUSION PO ONE; +diphenhydrAMINE 50MG/ML VIAL (J1200) IV PRN; +inFLIXimab INJECTION 400 MG in NS 210 ML IV ONE; +methylPREDNISolone 125MG 2ML VIAL IV PRN
[2022-02-09 14:39] VITALS: BP 135/89
[2022-02-09 15:24] VITALS: BP 131/82
[2022-02-09 16:20] VITALS: BP 147/81
== END 2022-02-09 16:20 | disposition home or self-care (01) ==
LOC: M INFU 14:31
PROVIDERS: ATTEND Internal Medicine Rheumatology
DX: M45.0 Ankylosing spondylitis of multiple sites in spine (principal)
CPT/HCPCS: 96413; J1745

== ENCOUNTER 2022-03-23 14:00 | Outpatient (CLI) | payer BC ==
[~2022-03-23] VITALS: Ht 157.5 cm; Wt 74.5 kg
[2022-03-23 14:00] VITALS: BP 151/83
[2022-03-23 14:50] VITALS: BP 134/80
[2022-03-23 15:40] VITALS: BP 134/80
== END 2022-03-23 15:40 | disposition home or self-care (01) ==
LOC: M INFU 14:00
PROVIDERS: ATTEND Internal Medicine Rheumatology
DX: M45.9 Ankylosing spondylitis of unspecified sites in spine (principal)
CPT/HCPCS: 96413; J1745

== ENCOUNTER → 2022-03-31 | Outpatient (REF) | payer BC ==
[~2022-03-31] MED LIST changes: -ALBUTEROL SULFATE 2.5 MG/0.5 ML INH NEB SOLN INH PRN; -EPINEPHrine INJ 1 MG/ML 1ML AMP IM PRN; -diphenhydrAMINE 25MG PO PRIOR TO INFUSION PO ONE; -diphenhydrAMINE 50MG/ML VIAL (J1200) IV PRN; -inFLIXimab INJECTION 400 MG in NS 210 ML IV ONE; -methylPREDNISolone 125MG 2ML VIAL IV PRN
[2022-03-31 13:51] LABS: CHOLESTEROL RISK RATIO 5.764 (<5)
[2022-03-31 14:20] LABS: HEMOGLOBIN A1c 5.4 %
== END ==
LOC: M SFHCADAM 09:06
PROVIDERS: ATTEND Physician Assistant Medical
DX: E11.9 Type 2 diabetes mellitus without complications (principal)

== ENCOUNTER 2022-05-04 14:15 | Outpatient (CLI) | payer BC ==
[~2022-05-04] VITALS: Ht 157.5 cm; Wt 74.5 kg
[~2022-05-04 14:15] MED LIST changes: +ALBUTEROL SULFATE 2.5 MG/0.5 ML INH NEB SOLN INH PRN; +EPINEPHrine INJ 1 MG/ML 1ML AMP IM PRN; +diphenhydrAMINE 25MG PO PRIOR TO INFUSION PO ONE; +diphenhydrAMINE 50MG/ML VIAL IV PRN; +inFLIXimab INJECTION 400 MG in NS 210 ML IV ONE; +methylPREDNISolone 125MG 2ML VIAL IV PRN
[2022-05-04 14:20] VITALS: BP 129/70
[2022-05-04 15:15] VITALS: BP 134/72
[2022-05-04 16:15] VITALS: BP 130/84
== END 2022-05-04 16:15 | disposition home or self-care (01) ==
LOC: M INFU 14:15
PROVIDERS: ATTEND Internal Medicine Rheumatology
DX: M45.0 Ankylosing spondylitis of multiple sites in spine (principal)
CPT/HCPCS: 96413; J1745

== ENCOUNTER → 2022-06-01 | Outpatient (REF) | payer BC ==
[~2022-06-01] MED LIST changes: -ALBUTEROL SULFATE 2.5 MG/0.5 ML INH NEB SOLN INH PRN; -EPINEPHrine INJ 1 MG/ML 1ML AMP IM PRN; -diphenhydrAMINE 25MG PO PRIOR TO INFUSION PO ONE; -diphenhydrAMINE 50MG/ML VIAL IV PRN; -inFLIXimab INJECTION 400 MG in NS 210 ML IV ONE; -methylPREDNISolone 125MG 2ML VIAL IV PRN
== END ==
LOC: M SFHCADAM 12:45
PROVIDERS: ATTEND Physician Assistant Medical
DX: R50.9 Fever, unspecified (principal)

== ENCOUNTER → 2022-06-29 | Outpatient (REF) | LOC: M PLAIMG 13:00 | PROVIDERS: ATTEND Internal Medicine | DX: R52 Pain, unspecified (principal) ==

== ENCOUNTER 2022-07-27 13:40 | Outpatient (CLI) | payer BC ==
[~2022-07-27] VITALS: Ht 157.5 cm; Wt 72.6 kg
[~2022-07-27 13:40] MED LIST changes: +ALBUTEROL SULFATE 2.5MG/0.5ML INH NEB SOLN INH PRN; +EPINEPHrine INJ 1 MG/ML 1ML AMP IM PRN; +diphenhydrAMINE 50MG/ML VIAL IV PRN; +methylPREDNISolone 125MG 2ML VIAL IV PRN
[2022-07-27 13:45] VITALS: BP 104/63
[2022-07-27] MEDS ORDERED: inFLIXimab INJECTION 400 MG in NS 210 ML IV ONE (14:00)
[2022-07-27] MEDS ORDERED: NS 1,000 ML IV SCH (14:00)
[2022-07-27] MEDS ORDERED: diphenhydrAMINE 25MG PO PRIOR TO INFUSION PO ONE (14:00)
[2022-07-27 14:15] VITALS: BP 104/63
[2022-07-27 14:30] VITALS: BP 125/84
[2022-07-27 15:25] VITALS: BP 111/81
== END 2022-07-27 15:25 | disposition home or self-care (01) ==
LOC: M INFU 13:40
PROVIDERS: ATTEND Internal Medicine Rheumatology
DX: M45.0 Ankylosing spondylitis of multiple sites in spine (principal)
CPT/HCPCS: 96413; J1745

== ENCOUNTER 2022-09-07 14:01 | Outpatient (CLI) | payer BC ==
[~2022-09-07] VITALS: Ht 157.5 cm; Wt 72.6 kg
[~2022-09-07 14:01] MED LIST changes: +NS 1,000 ML IV SCH; +diphenhydrAMINE 25MG PO PRIOR TO INFUSION PO ONE; +inFLIXimab INJECTION 400 MG in NS 210 ML IV ONE
[2022-09-07 14:10] VITALS: BP 127/82
[2022-09-07 15:50] VITALS: BP 140/85
== END 2022-09-07 15:50 | disposition home or self-care (01) ==
LOC: M INFU 14:01
PROVIDERS: ATTEND Internal Medicine Rheumatology
DX: M45.0 Ankylosing spondylitis of multiple sites in spine (principal)
CPT/HCPCS: 96413; J1745

== ENCOUNTER → 2022-09-09 | Outpatient (REF) | payer BC ==
[~2022-09-09] MED LIST changes: -ALBUTEROL SULFATE 2.5MG/0.5ML INH NEB SOLN INH PRN; -EPINEPHrine INJ 1 MG/ML 1ML AMP IM PRN; -NS 1,000 ML IV SCH; -diphenhydrAMINE 25MG PO PRIOR TO INFUSION PO ONE; -diphenhydrAMINE 50MG/ML VIAL IV PRN; -inFLIXimab INJECTION 400 MG in NS 210 ML IV ONE; -methylPREDNISolone 125MG 2ML VIAL IV PRN
[2022-09-09 17:58] LABS: ALBUMIN 4.6 G/DL (3.2-5.2); ALKALINE PHOSPHATASE 99 U/L (46-116); ALT/SGPT 29 U/L (7.0-40); AST/SGOT 16 U/L (<34); BASO # 0.1 10^3/uL (0.0-0.2); BASO % 0.9 % (0.0-1.0); BILIRUBIN,TOTAL 0.7 MG/DL (0.3-1.2); BLOOD UREA NITROGEN 11 MG/DL (9-23); CARBON DIOXIDE LEVEL 30 MMOL/L (20-31); CHLORIDE LEVEL 103 MMOL/L (98-107); CREATININE FOR GFR 0.84 MG/DL (0.70-1.30); EOS # 0.3 10^3/uL (0.0-0.5); EOS % 3.1 % (0.0-3.0); GLOMERULAR FILTRATION RATE > 60.0 (>60); GLUCOSE, FASTING 115 MG/DL (60-100); HEMATOCRIT 44.7 % (42.0-52.0); HEMOGLOBIN 15.3 g/dl (13.5-17.5); LYMPH # 3.5 10^3/uL (1.5-5.0); LYMPH % 42.6 % (24.0-44.0); MEAN CORPUSCULAR HEMOGLOBIN 31.2 pg (27.0-33.0); MEAN CORPUSCULAR HGB CONC 34.2 g/dl (32.0-36.5); MONO # 0.5 10^3/uL (0.0-0.8); MONO % 6.1 % (2.0-8.0); NEUTROPHILS # 3.9 10^3/uL (1.5-8.5); NEUTROPHILS % 47.2 % (36.0-66.0); PLATELET COUNT, AUTOMATED 312 10^3/uL (150-450); POTASSIUM SERUM 4.7 MMOL/L (3.5-5.1); RED BLOOD COUNT 4.91 10^6/uL (4.30-6.10); SODIUM LEVEL 140 MMOL/L (136-145); TOTAL PROTEIN 7.5 G/DL (5.7-8.2); WHITE BLOOD COUNT 8.2 10^3/uL (4.0-10.0)
[2022-09-09 18:01] LABS: C REACTIVE PROTEIN QUANTITATIV < 0.40 MG/DL (<1.0)
[2022-09-09 18:26] LABS: ERYTHROCYTE SEDIMENTATION RATE 4 mm/hr (0-15)
== END ==
LOC: M SFHCADAM 14:14
PROVIDERS: ATTEND Internal Medicine Rheumatology
DX: M45.0 Ankylosing spondylitis of multiple sites in spine (principal); M54.12 Radiculopathy, cervical region; Z79.899 Other long term (current) drug therapy; H57.11 Ocular pain, right eye

== ENCOUNTER → 2022-10-04 | Outpatient (REF) | payer BC ==
[2022-10-04 13:01] LABS: BASO # 0.1 10^3/uL (0.0-0.2); BASO % 1.2 % (0.0-1.0); EOS # 0.5 10^3/uL (0.0-0.5); EOS % 6.9 % (0.0-3.0); HEMATOCRIT 40.1 % (42.0-52.0); HEMOGLOBIN 13.9 g/dl (13.5-17.5); LYMPH # 3.6 10^3/uL (1.5-5.0); LYMPH % 47.2 % (24.0-44.0); MEAN CORPUSCULAR HEMOGLOBIN 31.1 pg (27.0-33.0); MEAN CORPUSCULAR HGB CONC 34.7 g/dl (32.0-36.5); MEAN CORPUSCULAR VOLUME 89.7 fl (80.0-96.0); MONO # 0.6 10^3/uL (0.0-0.8); MONO % 7.3 % (2.0-8.0); NEUTROPHILS # 2.9 10^3/uL (1.5-8.5); NEUTROPHILS % 37.1 % (36.0-66.0); PLATELET COUNT, AUTOMATED 273 10^3/uL (150-450); RED BLOOD COUNT 4.47 10^6/uL (4.30-6.10); WHITE BLOOD COUNT 7.7 10^3/uL (4.0-10.0)
[2022-10-04 13:37] LABS: C REACTIVE PROTEIN QUANTITATIV < 0.40 MG/DL (<1.0)
[2022-10-04 13:39] LABS: ALBUMIN 3.9 G/DL (3.2-5.2); ALKALINE PHOSPHATASE 86 U/L (46-116); ALT/SGPT 27 U/L (7.0-40); AST/SGOT 16 U/L (<34); BILIRUBIN,TOTAL 0.4 MG/DL (0.3-1.2); BLOOD UREA NITROGEN 11 MG/DL (9-23); CALCIUM LEVEL 8.3 MG/DL (8.5-10.1); CARBON DIOXIDE LEVEL 30 MMOL/L (20-31); CHLORIDE LEVEL 104 MMOL/L (98-107); CREATININE FOR GFR 0.88 MG/DL (0.70-1.30); GLOMERULAR FILTRATION RATE > 60.0 (>60); GLUCOSE, FASTING 120 MG/DL (60-100); POTASSIUM SERUM 4.1 MMOL/L (3.5-5.1); SODIUM LEVEL 140 MMOL/L (136-145); TOTAL PROTEIN 6.5 G/DL (5.7-8.2)
[2022-10-04 13:46] LABS: ERYTHROCYTE SEDIMENTATION RATE 1 mm/hr (0-15)
== END ==
LOC: M SFHCADAM 11:04
PROVIDERS: ATTEND Physician Assistant Medical
DX: M45.0 Ankylosing spondylitis of multiple sites in spine (principal); M54.12 Radiculopathy, cervical region; Z79.899 Other long term (current) drug therapy; H57.11 Ocular pain, right eye

== ENCOUNTER 2022-10-19 14:00 | Outpatient (CLI) | payer BC ==
[~2022-10-19] VITALS: Ht 157.5 cm; Wt 72.6 kg
[2022-10-19 14:00] VITALS: BP 143/78
[~2022-10-19 14:00] MED LIST changes: +ALBUTEROL SULFATE 2.5MG/0.5ML INH NEB SOLN INH PRN; +EPINEPHrine INJ 1 MG/ML 1ML AMP IM PRN; +diphenhydrAMINE 25MG PO PRIOR TO INFUSION PO ONE; +diphenhydrAMINE 50MG/ML VIAL IV PRN; +inFLIXimab INJECTION 400 MG in NS 210 ML IV ONE; +methylPREDNISolone 125MG 2ML VIAL IV PRN
[2022-10-19 14:44] VITALS: BP 143/78
[2022-10-19 15:03] VITALS: BP 131/80
[2022-10-19 15:45] VITALS: BP 126/76
== END 2022-10-19 15:45 | disposition home or self-care (01) ==
LOC: M INFU 14:00
PROVIDERS: ATTEND Internal Medicine Rheumatology
DX: M45.9 Ankylosing spondylitis of unspecified sites in spine (principal)
CPT/HCPCS: 96413; J1745

== ENCOUNTER 2022-11-30 14:15 | Outpatient (CLI) | payer BC ==
[~2022-11-30] VITALS: Ht 157.5 cm; Wt 72.6 kg
[2022-11-30 14:15] VITALS: BP 133/75; O2SAT 98
[2022-11-30 15:55] VITALS: BP 140/79; O2SAT 99
== END 2022-11-30 15:55 ==
LOC: M INFU 14:15
PROVIDERS: ATTEND Internal Medicine Rheumatology
DX: M45.0 Ankylosing spondylitis of multiple sites in spine (principal)
CPT/HCPCS: 96413; J1745

== ENCOUNTER 2023-01-11 14:15 | Outpatient (CLI) | payer BC ==
[~2023-01-11] VITALS: Ht 157.5 cm; Wt 74.1 kg
[2023-01-11 14:15] VITALS: BP 134/84; O2SAT 99
[~2023-01-11 14:15] MED LIST changes: -diphenhydrAMINE 25MG PO PRIOR TO INFUSION PO ONE; -inFLIXimab INJECTION 400 MG in NS 210 ML IV ONE
[2023-01-11] MEDS ORDERED: diphenhydrAMINE 25MG PO PRIOR TO INFUSION PO ONE (14:30)
[2023-01-11] MEDS ORDERED: inFLIXimab INJECTION 400 MG in NS 210 ML IV ONE (14:30)
[2023-01-11 16:25] VITALS: BP 131/87; O2SAT 99
[2023-01-11 16:30] VITALS: BP 131/87; TEMP 36.2; O2SAT 99
== END 2023-01-11 16:25 ==
LOC: M INFU 14:15
PROVIDERS: ATTEND Internal Medicine Rheumatology
DX: M45.9 Ankylosing spondylitis of unspecified sites in spine (principal)
CPT/HCPCS: 96413; J1745

== ENCOUNTER 2023-02-22 14:20 | Outpatient (CLI) | payer BC ==
[~2023-02-22] VITALS: Ht 157.5 cm; Wt 73.2 kg
[2023-02-22 14:15] VITALS: BP 120/70; O2SAT 97
[2023-02-22] MEDS ORDERED: inFLIXimab INJECTION 400 MG in NS 210 ML IV ONE (14:30)
[2023-02-22] MEDS ORDERED: diphenhydrAMINE 25MG PO PRIOR TO INFUSION PO ONE (14:30)
[2023-02-22 15:30] VITALS: BP 151/75; O2SAT 99
[2023-02-22 16:20] VITALS: BP 133/80; O2SAT 97
== END 2023-02-22 16:20 ==
LOC: M INFU 14:20
PROVIDERS: ATTEND Internal Medicine Rheumatology
DX: M45.9 Ankylosing spondylitis of unspecified sites in spine (principal)
CPT/HCPCS: 96413; J1745

== ENCOUNTER → 2023-03-20 | Outpatient (REF) | payer BC ==
[~2023-03-20] MED LIST changes: -ALBUTEROL SULFATE 2.5MG/0.5ML INH NEB SOLN INH PRN; -EPINEPHrine INJ 1 MG/ML 1ML AMP IM PRN; -diphenhydrAMINE 50MG/ML VIAL IV PRN; -methylPREDNISolone 125MG 2ML VIAL IV PRN
[2023-03-20 18:00] LABS: BASO # 0.1 10^3/uL (0.0-0.2); BASO % 0.8 % (0.0-1.0); EOS # 0.4 10^3/uL (0.0-0.5); EOS % 4.4 % (0.0-3.0); HEMATOCRIT 41.9 % (42.0-52.0); HEMOGLOBIN 14.4 g/dl (13.5-17.5); LYMPH # 2.9 10^3/uL (1.5-5.0); LYMPH % 34.3 % (24.0-44.0); MEAN CORPUSCULAR HEMOGLOBIN 31.5 pg (27.0-33.0); MEAN CORPUSCULAR HGB CONC 34.4 g/dl (32.0-36.5); MEAN CORPUSCULAR VOLUME 91.7 fl (80.0-96.0); MONO # 0.7 10^3/uL (0.0-0.8); MONO % 8.8 % (2.0-8.0); NEUTROPHILS # 4.3 10^3/uL (1.5-8.5); NEUTROPHILS % 51.5 % (36.0-66.0); PLATELET COUNT, AUTOMATED 287 10^3/uL (150-450); RED BLOOD COUNT 4.57 10^6/uL (4.30-6.10); WHITE BLOOD COUNT 8.3 10^3/uL (4.0-10.0)
[2023-03-20 18:15] LABS: C REACTIVE PROTEIN QUANTITATIV < 0.40 MG/DL (<1.0)
[2023-03-20 18:16] LABS: ALKALINE PHOSPHATASE 97 U/L (46-116); ALT/SGPT 39 U/L (7.0-40); AST/SGOT 19 U/L (<34); BILIRUBIN,TOTAL 0.7 MG/DL (0.3-1.2); BLOOD UREA NITROGEN 9 MG/DL (9-23); CARBON DIOXIDE LEVEL 31 MMOL/L (20-31); CHLORIDE LEVEL 103 MMOL/L (98-107); CREATININE FOR GFR 0.73 MG/DL (0.70-1.30); GLOMERULAR FILTRATION RATE > 60.0 (>60); GLUCOSE, FASTING 93 MG/DL (60-100); POTASSIUM SERUM 4.3 MMOL/L (3.5-5.1); SODIUM LEVEL 143 MMOL/L (136-145); TOTAL PROTEIN 7.1 G/DL (5.7-8.2)
[2023-03-20 18:32] LABS: ERYTHROCYTE SEDIMENTATION RATE 5 mm/hr (0-15)
== END ==
LOC: M PLALAB 17:00
PROVIDERS: ATTEND Internal Medicine Rheumatology
DX: M45.0 Ankylosing spondylitis of multiple sites in spine (principal); M54.12 Radiculopathy, cervical region; Z79.899 Other long term (current) drug therapy; H57.11 Ocular pain, right eye

== ENCOUNTER 2023-04-05 14:00 | Outpatient (CLI) | payer BC ==
[~2023-04-05] VITALS: Ht 157.5 cm; Wt 75.0 kg
[2023-04-05 14:00] VITALS: BP 127/75; O2SAT 98
[~2023-04-05 14:00] MED LIST changes: +ALBUTEROL SULFATE 2.5MG/0.5ML INH NEB SOLN INH PRN; +EPINEPHrine INJ 1 MG/ML 1ML AMP IM PRN; +diphenhydrAMINE 25MG PO PRIOR TO INFUSION PO ONE; +diphenhydrAMINE 50MG/ML VIAL IV PRN; +inFLIXimab INJECTION 400 MG in NS 210 ML IV ONE; +methylPREDNISolone 125MG 2ML VIAL IV PRN
[2023-04-05 14:14] VITALS: BP 127/75; TEMP 36.6; O2SAT 98
[2023-04-05 15:00] VITALS: BP 124/68; O2SAT 98
[2023-04-05 16:20] VITALS: BP 115/77; O2SAT 98
== END 2023-04-05 16:20 ==
LOC: M INFU 14:00
PROVIDERS: ATTEND Internal Medicine Rheumatology
DX: M45.0 Ankylosing spondylitis of multiple sites in spine (principal)
CPT/HCPCS: 96413; 96415; J1745

== ENCOUNTER → 2023-05-04 | Outpatient (REF) | payer BC ==
[~2023-05-04] MED LIST changes: -ALBUTEROL SULFATE 2.5MG/0.5ML INH NEB SOLN INH PRN; -EPINEPHrine INJ 1 MG/ML 1ML AMP IM PRN; -diphenhydrAMINE 25MG PO PRIOR TO INFUSION PO ONE; -diphenhydrAMINE 50MG/ML VIAL IV PRN; -inFLIXimab INJECTION 400 MG in NS 210 ML IV ONE; -methylPREDNISolone 125MG 2ML VIAL IV PRN
[2023-05-04 17:10] LABS: PERCENT SATURATION 12.9 % (19.7-50.0)
[2023-05-04 17:20] LABS: CHOLESTEROL RISK RATIO 3.8 (<5); FERRITIN 116.1 NG/ML (10.5-307.3); HDL CHOLESTEROL 31.5 MG/DL (>40); LDL CHOLESTEROL 48.3 MG/DL (<100); NON-HDL-C 88.5 MG/DL; THYROID STIMULATING HORMONE 0.745 uIU/ML (0.55-4.78)
[2023-05-04 17:22] LABS: HEMOGLOBIN A1c 5.1 % (4.0-6.0)
[2023-05-04 17:25] LABS: CREATININE, URINE 126.2 MG/DL
[2023-05-04 17:26] LABS: MAU/CREAT RATIO 2.3 MCG/MG (0.0-30.0)
== END ==
LOC: M SFHCADAM 13:50
PROVIDERS: ATTEND Physician Assistant Medical
DX: D50.9 Iron deficiency anemia, unspecified (principal); E11.9 Type 2 diabetes mellitus without complications

== ENCOUNTER 2023-05-17 14:10 | Outpatient (CLI) | payer BC ==
[~2023-05-17] VITALS: Ht 157.5 cm; Wt 72.0 kg
[~2023-05-17 14:10] MED LIST changes: +ALBUTEROL SULFATE 2.5MG/0.5ML INH NEB SOLN INH PRN; +EPINEPHrine INJ 1 MG/ML 1ML AMP IM PRN; +diphenhydrAMINE 25MG PO PRIOR TO INFUSION PO ONE; +diphenhydrAMINE 50MG/ML VIAL IV PRN; +inFLIXimab INJECTION 400 MG in NS 210 ML IV ONE; +methylPREDNISolone 125MG 2ML VIAL IV PRN
[2023-05-17 14:26] VITALS: BP 133/76; TEMP 97.8; O2SAT 98
[2023-05-17 16:10] VITALS: BP 130/77; O2SAT 98
== END 2023-05-17 16:18 | disposition home or self-care (01) ==
LOC: M INFU 14:10
PROVIDERS: ATTEND Internal Medicine Rheumatology
DX: M45.9 Ankylosing spondylitis of unspecified sites in spine (principal)
CPT/HCPCS: 96413; J1745

== ENCOUNTER 2023-07-03 14:00 | Outpatient (CLI) | payer BC ==
[~2023-07-03] VITALS: Ht 157.5 cm; Wt 75.0 kg
[2023-07-03 13:58] VITALS: BP 137/76; O2SAT 97
[~2023-07-03 14:00] MED LIST changes: -diphenhydrAMINE 25MG PO PRIOR TO INFUSION PO ONE; -inFLIXimab INJECTION 400 MG in NS 210 ML IV ONE
[2023-07-03] MEDS: diphenhydrAMINE 25MG PO PRIOR TO INFUSION PO ONE (14:08)
[2023-07-03] MEDS: inFLIXimab INJECTION 400 MG in NS 210 ML IV ONE (14:22)
[2023-07-03 15:45] VITALS: BP 117/71; O2SAT 98
== END 2023-07-03 15:30 | disposition home or self-care (01) ==
LOC: M INFU 14:00
PROVIDERS: ATTEND Internal Medicine Rheumatology
DX: M48.9 Spondylopathy, unspecified (principal)
CPT/HCPCS: 96413; J1745

== ENCOUNTER 2023-08-14 14:03 | Outpatient (CLI) | payer BC ==
[~2023-08-14] VITALS: Ht 157.5 cm; Wt 74.6 kg
[~2023-08-14 14:03] MED LIST changes: +NS 1,000 ML IV SCH
[2023-08-14 14:15] VITALS: BP 140/72; TEMP 97.9; O2SAT 100
[2023-08-14] MEDS: diphenhydrAMINE 25MG PO PRIOR TO INFUSION PO ONE (14:24)
[2023-08-14] MEDS: inFLIXimab INJECTION 400 MG in NS 210 ML IV ONE (14:44)
[2023-08-14 15:50] VITALS: BP 118/61; TEMP 97.8; O2SAT 98
== END 2023-08-14 15:53 ==
LOC: M INFU 14:03
PROVIDERS: ATTEND Internal Medicine Rheumatology
DX: M45.9 Ankylosing spondylitis of unspecified sites in spine (principal)
CPT/HCPCS: 96413; J1745

== ENCOUNTER → 2023-09-12 | Outpatient (REF) | payer BC ==
[~2023-09-12] MED LIST changes: -ALBUTEROL SULFATE 2.5MG/0.5ML INH NEB SOLN INH PRN; +DOCU100C16 PO; -EPINEPHrine INJ 1 MG/ML 1ML AMP IM PRN; +FAMO1TAB11 PO; +MORP30TASA PO; +NAPR-855 PO; -NS 1,000 ML IV SCH; +TIZA10TA PO; +TRUL10IN; +VITA200032 PO; -diphenhydrAMINE 50MG/ML VIAL IV PRN; -methylPREDNISolone 125MG 2ML VIAL IV PRN
[2023-09-12 18:07] LABS: BASO # 0.1 10^3/uL (0.0-0.2); BASO % 1.1 % (0.0-1.0); EOS # 0.2 10^3/uL (0.0-0.5); EOS % 2.8 % (0.0-3.0); HEMATOCRIT 42.1 % (42.0-52.0); HEMOGLOBIN 14.8 g/dl (13.5-17.5); LYMPH # 3.2 10^3/uL (1.5-5.0); LYMPH % 40.7 % (24.0-44.0); MEAN CORPUSCULAR HEMOGLOBIN 32.9 pg (27.0-33.0); MEAN CORPUSCULAR HGB CONC 35.2 g/dl (32.0-36.5); MEAN CORPUSCULAR VOLUME 93.6 fl (80.0-96.0); MONO # 0.5 10^3/uL (0.0-0.8); MONO % 6.9 % (2.0-8.0); NEUTROPHILS # 3.8 10^3/uL (1.5-8.5); NEUTROPHILS % 48.2 % (36.0-66.0); PLATELET COUNT, AUTOMATED 274 10^3/uL (150-450); WHITE BLOOD COUNT 7.9 10^3/uL (4.0-10.0)
[2023-09-12 18:09] LABS: C REACTIVE PROTEIN QUANTITATIV < 0.40 MG/DL (<1.0)
[2023-09-12 18:10] LABS: ALBUMIN 3.8 G/DL (3.2-5.2); ALKALINE PHOSPHATASE 106 U/L (46-116); ALT/SGPT 38 U/L (7.0-40); AST/SGOT 19 U/L (<34); BILIRUBIN,TOTAL 0.4 MG/DL (0.3-1.2); BLOOD UREA NITROGEN 16 MG/DL (9-23); CALCIUM LEVEL 8.8 MG/DL (8.5-10.1); CARBON DIOXIDE LEVEL 31 MMOL/L (20-31); CHLORIDE LEVEL 104 MMOL/L (98-107); CREATININE FOR GFR 0.81 MG/DL (0.70-1.30); GLOMERULAR FILTRATION RATE > 60.0 (>60); GLUCOSE, FASTING 125 MG/DL (60-100); POTASSIUM SERUM 3.9 MMOL/L (3.5-5.1); SODIUM LEVEL 139 MMOL/L (136-145)
[2023-09-12 18:19] LABS: ERYTHROCYTE SEDIMENTATION RATE 4 mm/hr (0-15)
== END ==
LOC: M SFHCADAM 13:22
PROVIDERS: ATTEND Internal Medicine Rheumatology
DX: M45.0 Ankylosing spondylitis of multiple sites in spine (principal); M54.12 Radiculopathy, cervical region; Z79.899 Other long term (current) drug therapy; H57.11 Ocular pain, right eye

== ENCOUNTER 2023-09-19 10:51 | Day surgery (SDC) | payer OTHER ==
[~2023-09-19] VITALS: Ht 157.5 cm; Wt 72.8 kg
[2023-09-19] MEDS: NS 1,000 ML IV ONE (13:56)
[2023-09-19] MEDS ORDERED: propofoL 200 MG/20 ML VIAL As Ordered ONE (14:40)
[2023-09-19] MEDS ORDERED: LIDOCAINE 2% 100MG/5ML SDV (FOR ANES.) As Ordered ONE (14:40)
[2023-09-19] MEDS ORDERED: fentaNYL 100 MCG/2 ML INJECTION As Ordered ONE (14:40)
[2023-09-19 14:54] VITALS: TEMP 98
[2023-09-19 15:02] VITALS: BP 124/73; O2SAT 98
== END 2023-09-19 15:14 | disposition home or self-care (01) ==
LOC: M OPP 10:51
PROVIDERS: ATTEND Internal Medicine Gastroenterology
DX: K21.00 Gastro-esophageal reflux disease with esophagitis, without bleeding (principal); K29.50 Unspecified chronic gastritis without bleeding; K22.89 Other specified disease of esophagus; K44.9 Diaphragmatic hernia without obstruction or gangrene; E78.00 Pure hypercholesterolemia, unspecified; Z79.899 Other long term (current) drug therapy; Z79.84 Long term (current) use of oral hypoglycemic drugs; F17.290 Nicotine dependence, other tobacco product, uncomplicated; E11.9 Type 2 diabetes mellitus without complications; Z79.891 Long term (current) use of opiate analgesic
CPT/HCPCS: 43239; 88305; J3010

== ENCOUNTER 2023-09-25 14:00 | Outpatient (CLI) | payer BC, OTHER ==
[~2023-09-25] VITALS: Ht 157.5 cm; Wt 76.0 kg
[2023-09-25 14:00] VITALS: BP 132/86; O2SAT 97
[2023-09-25] MEDS: diphenhydrAMINE 25MG PO PRIOR TO INFUSION PO ONE (14:29)
[2023-09-25] MEDS: inFLIXimab INJECTION 400 MG in NS 210 ML IV ONE (14:30)
[2023-09-25 15:40] VITALS: BP 136/80; O2SAT 97
== END 2023-09-25 15:45 | disposition home or self-care (01) ==
LOC: M INFU 14:00
PROVIDERS: ATTEND Internal Medicine Rheumatology
DX: M45.9 Ankylosing spondylitis of unspecified sites in spine (principal)
CPT/HCPCS: 96413; J1745

== ENCOUNTER 2023-11-06 14:00 | Outpatient (CLI) | payer BC, OTHER ==
[~2023-11-06] VITALS: Ht 157.5 cm; Wt 76.0 kg
[~2023-11-06 14:00] MED LIST changes: +ALBUTEROL SULFATE 2.5MG/0.5ML INH NEB SOLN INH PRN; +EPINEPHrine INJ 1 MG/ML 1ML AMP IM PRN; +FLUO-365 PO; -FLUO20CA22 PO; +diphenhydrAMINE 50MG/ML VIAL IV PRN; +methylPREDNISolone 125MG 2ML VIAL IV PRN
[2023-11-06 14:10] VITALS: BP 125/74; O2SAT 96
[2023-11-06] MEDS: diphenhydrAMINE 25MG PO PRIOR TO INFUSION PO ONE (14:37)
[2023-11-06] MEDS: inFLIXimab INJECTION 400 MG in NS 210 ML IV ONE (14:50)
[2023-11-06 15:05] VITALS: BP 120/81; O2SAT 97
[2023-11-06 16:00] VITALS: BP 134/81; O2SAT 97
== END 2023-11-06 15:55 ==
LOC: M INFU 14:00
PROVIDERS: ATTEND Internal Medicine Rheumatology
DX: M45.9 Ankylosing spondylitis of unspecified sites in spine (principal)
CPT/HCPCS: 96413; J1745

== ENCOUNTER 2023-12-18 14:12 | Outpatient (CLI) | payer OTHER, SELFPAY ==
[~2023-12-18] VITALS: Ht 157.5 cm; Wt 77.0 kg
[2023-12-18 14:10] VITALS: BP 152/78; O2SAT 99
[2023-12-18] MEDS: diphenhydrAMINE 25MG PO PRIOR TO INFUSION PO ONE (14:24)
[2023-12-18] MEDS: inFLIXimab INJECTION 400 MG in NS 210 ML IV ONE (14:46)
[2023-12-18 16:00] VITALS: BP 145/85; O2SAT 99
== END 2023-12-18 16:05 ==
LOC: M INFU 14:12
PROVIDERS: ATTEND Internal Medicine Rheumatology
DX: M45.9 Ankylosing spondylitis of unspecified sites in spine (principal)
CPT/HCPCS: 96413; J1745

== ENCOUNTER 2024-01-29 14:05 | Outpatient (CLI) | payer OTHER ==
[~2024-01-29] VITALS: Ht 157.5 cm; Wt 75.0 kg
[2024-01-29 14:00] VITALS: BP 135/84; O2SAT 98
[2024-01-29 14:05] VITALS: BP 119/74; O2SAT 97
[~2024-01-29 14:05] MED LIST changes: +NS 1,000 ML IV SCH
[2024-01-29] MEDS: diphenhydrAMINE 25MG PO PRIOR TO INFUSION PO ONE (14:21)
[2024-01-29] MEDS: inFLIXimab INJECTION 400 MG in NS 210 ML IV ONE (14:48)
== END 2024-01-29 16:05 ==
LOC: M INFU 14:05
PROVIDERS: ATTEND Internal Medicine Rheumatology
DX: M45.9 Ankylosing spondylitis of unspecified sites in spine (principal)
CPT/HCPCS: 96413; J1745

== ENCOUNTER 2024-03-11 14:06 | Outpatient (CLI) | payer OTHER ==
[~2024-03-11] VITALS: Ht 157.5 cm; Wt 76.6 kg
[~2024-03-11 14:06] MED LIST changes: -ALBUTEROL SULFATE 2.5MG/0.5ML INH NEB SOLN INH PRN; -EPINEPHrine INJ 1 MG/ML 1ML AMP IM PRN; -diphenhydrAMINE 50MG/ML VIAL IV PRN; -methylPREDNISolone 125MG 2ML VIAL IV PRN
[2024-03-11 14:10] VITALS: BP 144/78; O2SAT 97
[2024-03-11] MEDS: diphenhydrAMINE 25MG PO PRIOR TO INFUSION PO ONE (14:23)
[2024-03-11] MEDS: INFLIXIMAB BIOSIMILAR 400 MG in NS 210 ML IV ONE (15:13)
[2024-03-11 16:30] VITALS: BP 122/95; O2SAT 98
== END 2024-03-11 16:30 ==
LOC: M INFU 14:06
PROVIDERS: ATTEND Internal Medicine Rheumatology
DX: M45.9 Ankylosing spondylitis of unspecified sites in spine (principal)
CPT/HCPCS: 96413; Q5103

== ENCOUNTER → 2024-04-10 | Outpatient (REF) | payer MEDICARE ==
[~2024-04-10] MED LIST changes: +META-10 PO; -META1TAB22 PO; -NS 1,000 ML IV SCH
== END ==
LOC: M SFHCADAM 16:32
PROVIDERS: ATTEND Family Medicine
DX: J02.9 Acute pharyngitis, unspecified (principal)

== ENCOUNTER → 2024-04-12 | Outpatient (CLI) | payer MEDICARE ==
[2024-04-12 15:13] LABS: HEMOGLOBIN 13.9 g/dl (13.5-17.5); MEAN CORPUSCULAR HEMOGLOBIN 31.8 pg (27.0-33.0); MEAN CORPUSCULAR HGB CONC 34.8 g/dl (32.0-36.5); MEAN CORPUSCULAR VOLUME 91.5 fl (80.0-96.0); PLATELET COUNT, AUTOMATED 304 10^3/uL (150-450); RED BLOOD COUNT 4.37 10^6/uL (4.30-6.10); WHITE BLOOD COUNT 11.6 10^3/uL (4.0-10.0)
[2024-04-12 16:26] LABS: EOSINOPHILS 1 % (0-3); LYMPHOCYTES 48 % (16-44); MONOCYTES 6 % (0-5); NEUTROPHILS 45 % (28-66); PLATELET ESTIMATE NORMAL (NORMAL)
== END ==
LOC: M LAB 14:41
PROVIDERS: ATTEND Family Medicine
DX: R04.2 Hemoptysis (principal); R07.89 Other chest pain

== ENCOUNTER 2024-05-06 14:30 | Outpatient (CLI) | payer MEDICARE ==
[~2024-05-06] VITALS: Ht 157.5 cm; Wt 75.9 kg
[~2024-05-06 14:30] MED LIST changes: +ALBUTEROL SULFATE 2.5MG/0.5ML INH NEB SOLN INH PRN; +EPINEPHrine INJ 1 MG/ML 1ML AMP IM PRN; +diphenhydrAMINE 50MG/ML VIAL IV PRN; +methylPREDNISolone 125MG 2ML VIAL IV PRN
[2024-05-06] MEDS: diphenhydrAMINE 25MG PO PRIOR TO INFUSION PO ONE (14:35)
[2024-05-06 14:57] VITALS: BP 122/79; O2SAT 98
[2024-05-06] MEDS: INFLIXIMAB BIOSIMILAR 400 MG in NS 210 ML IV ONE (15:14)
[2024-05-06 16:30] VITALS: BP 124/78; O2SAT 98
[2024-05-06 16:41] VITALS: BP 124/78; TEMP 36.1; O2SAT 98
== END 2024-05-06 16:30 ==
LOC: M INFU 14:30
PROVIDERS: ATTEND Internal Medicine Rheumatology
DX: M45.9 Ankylosing spondylitis of unspecified sites in spine (principal)
CPT/HCPCS: 96413; Q5103

== ENCOUNTER 2024-06-17 14:37 | Outpatient (CLI) | payer MEDICARE ==
[~2024-06-17] VITALS: Ht 157.5 cm; Wt 76.3 kg
[2024-06-17 14:45] VITALS: BP 114/72; O2SAT 98
[2024-06-17] MEDS: diphenhydrAMINE 25MG PO PRIOR TO INFUSION PO ONE (14:46)
[2024-06-17] MEDS: INFLIXIMAB BIOSIMILAR 400 MG in NS 210 ML IV ONE (15:13)
[2024-06-17 16:20] VITALS: BP 126/69; O2SAT 97
== END 2024-06-17 16:22 ==
LOC: M INFU 14:37
PROVIDERS: ATTEND Internal Medicine Rheumatology
DX: M45.9 Ankylosing spondylitis of unspecified sites in spine (principal)
CPT/HCPCS: 96413; Q5103

== ENCOUNTER → 2024-06-21 | Outpatient (REF) | payer MEDICARE ==
[~2024-06-21] MED LIST changes: -ALBUTEROL SULFATE 2.5MG/0.5ML INH NEB SOLN INH PRN; -EPINEPHrine INJ 1 MG/ML 1ML AMP IM PRN; -diphenhydrAMINE 50MG/ML VIAL IV PRN; -methylPREDNISolone 125MG 2ML VIAL IV PRN
[2024-06-21 17:37] LABS: ALBUMIN 3.7 G/DL (3.2-5.2); ALKALINE PHOSPHATASE 81 U/L (40-129); ALT/SGPT 35 U/L (7.0-40); AST/SGOT 18 U/L (<34); BILIRUBIN,TOTAL 0.4 MG/DL (0.3-1.2); BLOOD UREA NITROGEN 12 MG/DL (9-23); C REACTIVE PROTEIN QUANTITATIV < 0.50 MG/DL (<1.0); CARBON DIOXIDE LEVEL 30 MMOL/L (20-31); CHLORIDE LEVEL 107 MMOL/L (98-107); GLOMERULAR FILTRATION RATE > 60.0 (>60); GLUCOSE, FASTING 159 MG/DL (60-100); POTASSIUM SERUM 4.2 MMOL/L (3.5-5.1); SODIUM LEVEL 140 MMOL/L (136-145); TOTAL PROTEIN 6.9 G/DL (5.7-8.2)
[2024-06-21 17:47] LABS: BASO # 0.1 10^3/uL (0.0-0.2); BASO % 0.9 % (0.0-1.0); EOS # 0.3 10^3/uL (0.0-0.5); EOS % 3.4 % (0.0-3.0); HEMOGLOBIN 14.7 g/dl (13.5-17.5); LYMPH # 3.8 10^3/uL (1.5-5.0); LYMPH % 46.9 % (24.0-44.0); MEAN CORPUSCULAR HEMOGLOBIN 32.9 pg (27.0-33.0); MONO # 0.6 10^3/uL (0.0-0.8); MONO % 7.5 % (2.0-8.0); NEUTROPHILS # 3.3 10^3/uL (1.5-8.5); NEUTROPHILS % 40.9 % (36.0-66.0); PLATELET COUNT, AUTOMATED 272 10^3/uL (150-450); RED BLOOD COUNT 4.47 10^6/uL (4.30-6.10)
== END ==
LOC: M SFHCADAM 13:41
PROVIDERS: ATTEND Physician Assistant Medical
DX: M45.0 Ankylosing spondylitis of multiple sites in spine (principal); M54.12 Radiculopathy, cervical region; Z79.899 Other long term (current) drug therapy; H57.11 Ocular pain, right eye

== ENCOUNTER → 2024-06-25 | Outpatient (REF) | payer MEDICARE ==
[2024-06-25 18:27] LABS: HEMOGLOBIN A1c 5.3 % (4.0-6.0)
[2024-06-25 18:33] LABS: MAU/CREAT RATIO 1.7 MCG/MG (0.0-30.0)
[2024-06-25 18:41] LABS: FERRITIN 129.9 NG/ML (10.5-307.3)
[2024-06-25 18:44] LABS: CHOLESTEROL RISK RATIO 3.87 (<5); HDL CHOLESTEROL 38.2 MG/DL (>40); LDL CHOLESTEROL 91.8 MG/DL (<100); NON-HDL-C 109.8 MG/DL; PERCENT SATURATION 20.5 % (19.7-50.0)
[2024-06-25 18:45] LABS: TOTAL 25(OH) VITAMIN D 26.3 NG/ML (20.0-100.0)
== END ==
LOC: M SFHCADAM 14:21
PROVIDERS: ATTEND Physician Assistant Medical
DX: K21.9 Gastro-esophageal reflux disease without esophagitis (principal); E55.9 Vitamin D deficiency, unspecified; E11.9 Type 2 diabetes mellitus without complications; D50.9 Iron deficiency anemia, unspecified

== ENCOUNTER 2024-07-29 14:25 | Outpatient (CLI) | payer MEDICARE ==
[~2024-07-29] VITALS: Ht 157.5 cm; Wt 77.3 kg
[~2024-07-29 14:25] MED LIST changes: +ALBUTEROL SULFATE 2.5MG/0.5ML INH NEB SOLN INH PRN; +CARI-555 PO; -CARI1TAB7 PO; +EPINEPHrine INJ 1 MG/ML 1ML AMP IM PRN; +diphenhydrAMINE 50MG/ML VIAL IV PRN; +methylPREDNISolone 125MG 2ML VIAL IV PRN
[2024-07-29 14:35] VITALS: BP 130/77; O2SAT 95
[2024-07-29] MEDS: diphenhydrAMINE 25MG PO PRIOR TO INFUSION PO ONE (14:35)
[2024-07-29] MEDS: INFLIXIMAB BIOSIMILAR 400 MG in NS 210 ML IV ONE (15:27)
[2024-07-29 16:25] VITALS: BP 130/80; O2SAT 97
== END 2024-07-29 16:25 ==
LOC: M INFU 14:25
PROVIDERS: ATTEND Internal Medicine Rheumatology
DX: M45.9 Ankylosing spondylitis of unspecified sites in spine (principal)
CPT/HCPCS: 96413; Q5103

== ENCOUNTER 2024-09-09 14:02 | Outpatient (CLI) | payer MEDICARE ==
[~2024-09-09] VITALS: Ht 157.5 cm; Wt 75.0 kg
[~2024-09-09 14:02] MED LIST changes: +ALBUTEROL SULFATE 2.5MG/0.5ML INH CONCENTRATE NEB SOLN INH PRN; -ALBUTEROL SULFATE 2.5MG/0.5ML INH NEB SOLN INH PRN
[2024-09-09 14:10] VITALS: BP 128/77; O2SAT 98
[2024-09-09] MEDS: diphenhydrAMINE 25MG CAP PO ONE (14:18)
[2024-09-09 14:40] VITALS: BP 121/72; O2SAT 98
[2024-09-09] MEDS: INFLIXIMAB BIOSIMILAR 400 MG in NS 210 ML IV ONE (14:49)
== END 2024-09-09 15:45 | disposition home or self-care (01) ==
LOC: M INFU 14:02
PROVIDERS: ATTEND Internal Medicine Rheumatology
DX: M45.9 Ankylosing spondylitis of unspecified sites in spine (principal)
CPT/HCPCS: 96413; Q5103

== ENCOUNTER 2024-12-02 14:05 | Outpatient (CLI) | payer MEDICARE ==
[~2024-12-02] VITALS: Ht 157.5 cm; Wt 79.2 kg
[~2024-12-02 14:05] MED LIST changes: +ALBUTEROL SULFATE 2.5 MG/0.5 ML INH CONCENTRATE NEB SOLN INH PRN; -ALBUTEROL SULFATE 2.5MG/0.5ML INH CONCENTRATE NEB SOLN INH PRN; +diphenhydrAMINE 50 MG/ML VIAL IV PRN; -diphenhydrAMINE 50MG/ML VIAL IV PRN; -methylPREDNISolone 125MG 2ML VIAL IV PRN
[2024-12-02] MEDS: diphenhydrAMINE 25MG PO PRIOR TO INFUSION PO ONE (14:17)
[2024-12-02 14:23] VITALS: BP 132/71; TEMP 97.6; O2SAT 99
[2024-12-02] MEDS: INFLIXIMAB BIOSIMILAR 400 MG in NS 210 ML IV ONE (14:45)
[2024-12-02 15:50] VITALS: BP 150/81; O2SAT 98
== END 2024-12-02 15:50 | disposition home or self-care (01) ==
LOC: M INFU 14:05
PROVIDERS: ATTEND Internal Medicine Rheumatology
DX: M45.9 Ankylosing spondylitis of unspecified sites in spine (principal)
CPT/HCPCS: 96413; Q5103

== ENCOUNTER → 2024-12-24 | Outpatient (REF) | payer MEDICARE ==
[~2024-12-24] MED LIST changes: -ALBUTEROL SULFATE 2.5 MG/0.5 ML INH CONCENTRATE NEB SOLN INH PRN; -EPINEPHrine INJ 1 MG/ML 1ML AMP IM PRN; -diphenhydrAMINE 50 MG/ML VIAL IV PRN
[2024-12-24 17:05] LABS: C REACTIVE PROTEIN QUANTITATIV < 0.50 MG/DL (<1.0)
[2024-12-24 17:10] LABS: ALT/SGPT 47 U/L (7.0-40); AST/SGOT 20 U/L (<34); CALCIUM LEVEL 8.5 MG/DL (8.5-10.1); CARBON DIOXIDE LEVEL 28 MMOL/L (20-31); CHLORIDE LEVEL 103 MMOL/L (98-107); CREATININE FOR GFR 0.80 MG/DL (0.70-1.30); GLOMERULAR FILTRATION RATE > 90.0 (>60); POTASSIUM SERUM 3.9 MMOL/L (3.5-5.1); SODIUM LEVEL 141 MMOL/L (136-145)
[2024-12-24 17:13] LABS: BASO # 0.1 10^3/uL (0.0-0.2); BASO % 0.8 % (0.0-1.0); EOS # 0.3 10^3/uL (0.0-0.5); EOS % 3.4 % (0.0-3.0); LYMPH # 3.1 10^3/uL (1.5-5.0); LYMPH % 40.6 % (24.0-44.0); MONO # 0.6 10^3/uL (0.0-0.8); MONO % 8.3 % (2.0-8.0); NEUTROPHILS # 3.6 10^3/uL (1.5-8.5); NEUTROPHILS % 46.6 % (36.0-66.0); PLATELET COUNT, AUTOMATED 274 10^3/uL (150-450)
[2024-12-24 17:23] LABS: ERYTHROCYTE SEDIMENTATION RATE 3 mm/hr (0-15)
== END ==
LOC: M SFHCADAM 11:54
PROVIDERS: ATTEND Internal Medicine
DX: M45.0 Ankylosing spondylitis of multiple sites in spine (principal); M54.12 Radiculopathy, cervical region; Z79.899 Other long term (current) drug therapy; H57.11 Ocular pain, right eye

== ENCOUNTER → 2025-01-06 | Outpatient (REF) | payer MEDICARE ==
[2025-01-06 18:00] LABS: CHOLESTEROL LEVEL 166.0 MG/DL (<200); CHOLESTEROL RISK RATIO 3.68 (<5); IRON (FE) 100.0 UG/DL (65-175); LDL CHOLESTEROL 98.5 MG/DL (<100); NON-HDL-C 120.9 MG/DL; PERCENT SATURATION 33.9 % (19.7-50.0); TRIGLYCERIDES LEVEL 112.0 MG/DL (<150)
[2025-01-06 18:04] LABS: FREE T4 1.0 NG/DL (0.89-1.76)
[2025-01-06 18:05] LABS: TOTAL 25(OH) VITAMIN D 31.7 NG/ML (20.0-100.0)
[2025-01-06 18:14] LABS: ESTIMATED AVERAGE GLUCOSE 154.0 MG/DL (60-110)
== END ==
LOC: M SFHCADAM 14:30
PROVIDERS: ATTEND Physician Assistant Medical
DX: E11.9 Type 2 diabetes mellitus without complications (principal); E55.9 Vitamin D deficiency, unspecified; D50.9 Iron deficiency anemia, unspecified

== ENCOUNTER 2025-01-13 14:17 | Outpatient (CLI) | payer MEDICARE ==
[~2025-01-13] VITALS: Ht 157.5 cm; Wt 80.0 kg
[~2025-01-13 14:17] MED LIST changes: +ALBUTEROL SULFATE 2.5 MG/0.5 ML INH CONCENTRATE NEB SOLN INH PRN; +EPINEPHrine INJ 1 MG/ML 1ML AMP IM PRN; +diphenhydrAMINE 50 MG/ML VIAL IV PRN
[2025-01-13 14:30] VITALS: BP 135/61; O2SAT 97
[2025-01-13] MEDS: diphenhydrAMINE 25MG PO PRIOR TO INFUSION PO ONE (14:53)
[2025-01-13] MEDS: INFLIXIMAB BIOSIMILAR 400 MG in NS 210 ML IV ONE (15:04)
[2025-01-13 16:10] VITALS: BP 142/89; O2SAT 97
== END 2025-01-13 16:15 | disposition home or self-care (01) ==
LOC: M INFU 14:17
PROVIDERS: ATTEND Internal Medicine Rheumatology
DX: M45.9 Ankylosing spondylitis of unspecified sites in spine (principal)
CPT/HCPCS: 96413; Q5103

== ENCOUNTER 2025-02-24 09:09 | Outpatient (CLI) | payer MEDICARE ==
[~2025-02-24] VITALS: Ht 157.5 cm; Wt 80.0 kg
[2025-02-24 09:10] VITALS: BP 121/68; O2SAT 97
[2025-02-24] MEDS: INFLIXIMAB BIOSIMILAR 400 MG in NS 210 ML IV ONE (10:01)
[2025-02-24] MEDS: diphenhydrAMINE 25MG PO PRIOR TO INFUSION PO ONE (10:05)
[2025-02-24 11:15] VITALS: BP 145/89; O2SAT 96
== END 2025-02-24 11:15 | disposition home or self-care (01) ==
LOC: M INFU 09:09
PROVIDERS: ATTEND Internal Medicine Rheumatology
DX: M45.9 Ankylosing spondylitis of unspecified sites in spine (principal)
CPT/HCPCS: 96413; Q5103

== ENCOUNTER 2025-04-07 14:09 | Outpatient (CLI) | payer MEDICARE ==
[~2025-04-07] VITALS: Ht 157.5 cm; Wt 80.0 kg
[2025-04-07 14:10] VITALS: BP 141/75; O2SAT 98
[2025-04-07] MEDS: diphenhydrAMINE 25MG PO PRIOR TO INFUSION PO ONE (14:50)
[2025-04-07] MEDS: INFLIXIMAB BIOSIMILAR 400 MG in NS 210 ML IV ONE (15:06)
[2025-04-07 16:10] VITALS: BP 151/88; O2SAT 97
== END 2025-04-07 16:10 | disposition home or self-care (01) ==
LOC: M INFU 14:09
PROVIDERS: ATTEND Internal Medicine Rheumatology
DX: M45.9 Ankylosing spondylitis of unspecified sites in spine (principal)
CPT/HCPCS: 96413; Q5103

== ENCOUNTER 2025-05-19 14:08 | Outpatient (CLI) | payer MEDICARE ==
[~2025-05-19] VITALS: Ht 157.5 cm; Wt 80.5 kg
[~2025-05-19 14:08] MED LIST changes: -ALBUTEROL SULFATE 2.5 MG/0.5 ML INH CONCENTRATE NEB SOLN INH PRN; -EPINEPHrine INJ 1 MG/ML 1ML AMP IM PRN; -diphenhydrAMINE 50 MG/ML VIAL IV PRN
[2025-05-19 14:20] VITALS: BP 115/66; O2SAT 97
[2025-05-19] MEDS: diphenhydrAMINE 25MG PO PRIOR TO INFUSION PO ONE (14:21)
[2025-05-19] MEDS: INFLIXIMAB BIOSIMILAR 400 MG in NS 210 ML IV ONE (15:13)
[2025-05-19 16:16] VITALS: BP 118/58; O2SAT 98
== END 2025-05-19 16:18 | disposition home or self-care (01) ==
LOC: M INFU 14:08
PROVIDERS: ATTEND Internal Medicine Rheumatology
DX: M45.9 Ankylosing spondylitis of unspecified sites in spine (principal)
CPT/HCPCS: 96413; Q5103